=== PATIENT | male | born 1960 | race Caucasian/White ===

== ENCOUNTER → 2020-03-10 10:38 | Outpatient (BNVA) | payer SELFPAY | PROVIDERS: PCP Nurse Practitioner Family; Referring Provider Nurse Practitioner Family; Visit Provider Urology | DX: Z76.89 Persons encountering health services in other specified circumstances (principal) ==

== ENCOUNTER 2020-05-03 10:37 | Outpatient (REF) | payer BC, SELFPAY ==
[2020-05-03 14:23] LABS: Alanine Aminotransferase 13 U/L (0-40); Albumin Level 3.7 g/dL (3.5-5.0); Alkaline Phosphatase 79 U/L (39-117); Anion Gap 13 (12-20); Aspartate Amino Transferase 20 U/L (5-37); Bilirubin Total 0.8 mg/dL (0.0-1.0); Blood Urea Nitrogen 10 mg/dL (9-16); Calcium 7.9 mg/dL (8.4-10.2); Carbon Dioxide 28 mmol/L (22-29); Chloride 98 mmol/L (96-108); Cholesterol 162 mg/dL; Estimated Glomerular Filt Rate > 60; Glucose Fasting 114 mg/dL (60-99); HDL Cholesterol 42 mg/dL; LDL Cholesterol Calculated 94 mg/dl; Potassium 3.9 mmol/l (3.3-5.1); Sodium 135 mmol/L (135-145); Total Protein 6.6 g/dL (6.5-8.0); Triglycerides 131 mg/dL
[2020-05-03 15:12] LABS: TSH reflex Free T4 2.26 mIU/mL (0.32-4.0)
== END 2020-05-03 10:38 | disposition home or self-care (01) ==
LOC: HO.HMGCLDS 10:37
PROVIDERS: PCP Nurse Practitioner Family; Visit Provider Nurse Practitioner Family
DX: I10 Essential (primary) hypertension (principal)
CPT/HCPCS: 80053; 80061; 84443

== ENCOUNTER → 2020-05-30 10:02 | Outpatient (BNVA) | payer BC, SELFPAY | PROVIDERS: Visit Provider Physician Assistant | DX: Z76.89 Persons encountering health services in other specified circumstances (principal) ==

== ENCOUNTER → 2020-09-27 09:50 | Outpatient (BNVA) | payer BC, SELFPAY | PROVIDERS: Visit Provider Physician Assistant ==

== ENCOUNTER 2020-10-05 10:31 | Outpatient (REF) | payer BC, SELFPAY ==
--- NOTE | ~2020-10-05 | XR_ITS ---
EXAMINATION: XR CHEST CLINICAL INFORMATION: Shortness of breath COMPARISON: Chest radiographs 07/15/2019, 03/05/2019 TECHNIQUE: PA and lateral views of the chest are obtained. FINDINGS: The lungs are clear. The vascularity is normal. There is no pneumothorax, airspace consolidation, vascular congestion, or effusion. The heart is within normal size. There is bipolar pacemaker with atrial and ventricular leads. The costophrenic sulci are clear. The hilar and mediastinal contours are normal. No acute bony abnormality. XR/XR chest 2V IMPRESSION: Unremarkable examination.
== END 2020-10-05 10:32 | disposition home or self-care (01) ==
LOC: HO.HMGCX 10:31
PROVIDERS: PCP Nurse Practitioner Family; Visit Provider Nurse Practitioner Family
DX: R06.02 Shortness of breath (principal)
CPT/HCPCS: 71046

== ENCOUNTER → 2020-10-11 14:46 | Outpatient (BNVA) | payer BC, SELFPAY | PROVIDERS: PCP Nurse Practitioner Family; Visit Provider Internal Medicine ==

== ENCOUNTER 2020-10-31 14:55 | Outpatient (REF) | payer BC, SELFPAY ==
--- NOTE | 2020-10-31 17:48 | PFT_ITS ---
Forced vital capacity moderately reduced. FEV1 and [id number] are markedly reduced. MVV moderately reduced. Post bronchodilator therapy, there is a slight improvement in FEV1 and [id number]. Total lung capacity is slightly decreased. Residual volume normal. Diffusion capacity normal. CONCLUSION: [id number] degree of obstructive airway disorder. There is minimal improvement after bronchodilator therapy. Clinical correlation is recommended. MD SUKI Mes[place]/DUC / [id number]
== END 2020-10-31 14:56 | disposition home or self-care (01) ==
LOC: HO.RESP 14:55
PROVIDERS: PCP Nurse Practitioner Family; Visit Provider Internal Medicine
DX: R06.02 Shortness of breath (principal); E66.9 Obesity, unspecified
CPT/HCPCS: 94060; 94727; 94729

== ENCOUNTER → 2020-11-06 15:01 | Outpatient (BNVA) | payer BC, SELFPAY | PROVIDERS: PCP Nurse Practitioner Family; Visit Provider Internal Medicine ==

== ENCOUNTER → 2020-12-26 14:53 | Outpatient (BNVA) | payer BC, SELFPAY | PROVIDERS: PCP Nurse Practitioner Family; Visit Provider Internal Medicine ==

== ENCOUNTER 2021-01-26 19:50 | Inpatient (IN) | payer BC, SELFPAY ==
[2021-01-26] VITALS (7 sets, daily range): BP systolic 69–102; BP diastolic 36–51; PULSE 57–66; RESP 18–20; TEMP 36.4; O2SAT 94–100; BMI 43.7
--- NOTE | ~2021-01-26 | XR_ITS ---
EXAMINATION: XR CHEST CLINICAL INFORMATION: Rule out pneumonia COMPARISON: None TECHNIQUE: Frontal view of the chest was obtained. FINDINGS: Lungs are well expanded and there are no focal opacities identified. No pleural effusion or pneumothorax. The cardiomediastinal contours are unchanged from priors. Structures of the chest wall are intact. Left-sided pacemaker generator again noted which is contiguous with its associated leads and wires overlying the right ventricle and atrium. XR/XR chest 1V IMPRESSION: Stable chest.
--- NOTE | ~2021-01-26 | CT_ITS ---
EXAMINATION: CT ABDOMEN AND PELVIS WITHOUT CONTRAST CLINICAL INFORMATION: Belly pain. COMPARISON: CT scan abdomen pelvis 03/02/2019 TECHNIQUE: Multidetector volumetric imaging was performed from the superior aspect of the liver through the pubic symphysis. Sagittal and coronal reformatted images were obtained on the technologist's workstation. This CT examination was performed using dose optimization techniques as appropriate, variously including the following: *Automated exposure control *Adjustment of mA and/or kV according to patient size (this includes techniques or standardized protocols for targeted exams where dose is matched to indication/reason for exam; i.e. extremities or head) *Use of iterative reconstruction technique DLP: 3373 mGy-cm FINDINGS: LUNG BASES: Lung bases are normally aerated. Pacemaker leads in the right atrium and right ventricle heart. The heart size is normal. No pericardial effusion. LIVER, GALLBLADDER, AND BILIARY TREE: The liver is normal in size, shape, and attenuation. No focal hepatic lesion or biliary ductal dilatation is present. The gallbladder is unremarkable with no evidence of radiopaque gallstones, gallbladder wall thickening, or obvious pericholecystic inflammatory changes. PANCREAS: No acute change of the pancreas. No inflammation. No pancreatic mass or pancreatic duct dilatation. There is no inflammation or fluid around the pancreas. SPLEEN: Unremarkable. ADRENAL GLANDS: Unremarkable. KIDNEYS AND URETERS: The kidneys are normal in size, shape, and attenuation. No hydronephrosis, hydroureter, or calculi seen. No perinephric stranding. Simple cyst mid anterior pole cortex right kidney measuring 3.5 cm, density measurement of 8 Hounsfield units. No follow-up imaging is recommended for simple renal cyst.. BLADDER: Campbell catheter within the bladder. Bladder is empty. GASTROINTESTINAL TRACT: Mild dilatation of small bowel loops throughout the mid abdomen with scattered air-fluid levels. No transition point to indicate an obstructive point.. No dilatation of large bowel. Air and fluid seen throughout large and small bowel. No bowel wall thickening or edema. No fluid or edema of the mesentery. No free air. The appendix is normal. ABDOMINAL WALL: Small fat-containing left inguinal hernia. LYMPH NODES: There are shotty subcentimeter lymph nodes in the mesentery but there is no bulky lymphadenopathy of the abdomen or pelvis. VASCULAR: Atherosclerotic vascular calcifications of aorta and iliac arteries. There is no aneurysm. PELVIC VISCERA: Unremarkable. OSSEOUS STRUCTURES: Status post left hip replacement. Multilevel degenerative spondylosis spine. No acute osseous abnormality. CT/CT abdomen pelvis wo con IMPRESSION: Mild dilatation of small bowel loops throughout the mid abdomen with scattered air-fluid levels. No bowel wall thickening. There is no transition point. Possible early ileus. No inflammation or free air in the abdomen or pelvis. The pancreas is normal.
[2021-01-26 21:08] LABS: Glucose, Whole Blood 127 mg/dL (60-115)
--- NOTE | 2021-01-26 21:08 | ECG_ITS ---
Test Reason : HYPOTENSION Blood Pressure : / mmHG Vent. Rate : 063 BPM Atrial Rate : 063 BPM P-R Int : 258 ms QRS Dur : 200 ms QT Int : 558 ms P-R-T Axes : -17 266 028 degrees QTc Int : 571 ms Atrial-paced rhythm with prolonged AV conduction Right bundle branch block Abnormal ECG When compared with ECG of 14-APR-2019 17:14, Electronic atrial pacemaker has replaced Sinus rhythm Questionable change in QRS duration Referred By: Aggie Negro Electronically Signed By:NYLA PEMBERTON
[2021-01-26] MEDS: 0.9 % Sodium Chloride 1,000 ML 999 ML IVCONT ×4 (21:10→21:55)
--- NOTE | 2021-01-26 21:12 | ED_ITS ---
HPI - Nausea/Vomiting/Diarrhea General Chief complaint: Nausea/Vomiting/Diarrhea Stated complaint: ?Dehydration Time Seen by Provider: 01/26/21 21:07 Source: patient Mode of arrival: wheelchair Limitations: no limitations History of Present Illness HPI Narrative: pt comes to ED c/o of diarrhea for 1 week and weakness for several days. States that for the last couple of days, he is so weak that he can barely stand up, patient also feeling lightheaded. Patient denies chest pain, no shortness of breath, no other illness other than the diarrhea. Patient denies abdominal pain, no blood in the stool, no vomiting. Patient states that he has been trying to drink fluid intake. Patient states that he has had low blood pressure in the past, states that his blood pressure medications caused hypotension. Related Data Home Medications Medication Instructions Recorded Confirmed albuterol sulfate 90 mcg/actuation 2 puff INHALATION Q4-6H PRN 01/26/21 01/26/21 aerosol inhaler amlodipine 10 mg tablet 1 tab PO DAILY 01/26/21 01/26/21 aspirin 81 mg chewable tablet 1 tab PO DAILY 01/26/21 01/26/21 carvedilol 6.25 mg tablet 1 tab PO BID 01/26/21 01/26/21 docusate sodium 100 mg capsule 2 cap PO BEDTIME 01/26/21 01/26/21 fluticasone 250 mcg-salmeterol 50 1 puff INHALATION BID 01/26/21 01/26/21 mcg/dose blistr powdr for inhalation (Advair Diskus) folic acid 1 mg tablet 1 tab PO DAILY 01/26/21 01/26/21 furosemide 20 mg tablet 1 tab PO DAILY 01/26/21 01/26/21 losartan 50 mg tablet 1 tab PO DAILY 01/26/21 01/26/21 polyethylene glycol 3350 17 17 g PO DAILY 01/26/21 01/26/21 gram/dose oral powder (Gavilax) psyllium husk 0.52 gram capsule 1 tab PO BID 01/26/21 01/26/21 (Fiber Laxative (psyllium husk)) Allergies Allergy/AdvReac Type Severity Reaction Status Date / Time pravastatin [PRAVASTATIN] Allergy Intermediate RASH Verified 01/26/21 20:51 clonidine Allergy Unknown facial rash Verified 01/26/21 20:51 lisinopril Allergy Unknown achy, back Verified 01/26/21 20:51 pain, achy losartan Allergy Unknown achy Verified 01/26/21 20:51 amlodipine AdvReac Unknown leg edema, Verified 01/26/21 20:51 renal problems furosemide [Lasix] AdvReac Unknown renal Verified 01/26/21 20:51 insufficiency labetalol AdvReac Unknown achy Verified 01/26/21 20:51 Seasonal Allergy Unknown unknown Uncoded 12/14/20 16:19 Review of Systems Review of Systems: Constitutional : No Weight loss, No Fever, No Chills, No Night Sweats, No Fatigue, No Malaise ENT/Mouth : No Hearing loss, No Ear Pain, No Nasal Congestion, No Sinus Pain, No Hoarseness, No sore throat, No Rhinorrhea, No Swallowing Difficulty Eyes: No Eye Pain, No Swelling, No Redness, No Foreign Body, No Discharge, No Vision Changes Cardiovascular : No Chest Pain, No SOB, No Dyspnea on Exertion, No Orthopnea, No Edema, No Palpitations, complaining of low blood pressure, dizziness Respiratory : No Cough, No Sputum, No Wheezing, No Smoke Exposure, No Dyspnea Gastrointestinal : No Nausea, No Vomiting, planning of perfuse Diarrhea, No Constipation, No abdominal Pain, No Hematochezia, No Melena Genitourinary : no irregular bleeding, No Dysuria, No Urinary Frequency, No Hematuria, No Urinary Incontinence, No Urgency, No Flank Pain, No Urinary Flow Changes, No Hesitancy Musculoskeletal : No joint pain, No Myalgias, No Joint Swelling Skin : No Skin Lesions, No rash Neuro : No Weakness, No Numbness, No Paresthesias, No Loss of Consciousness, No Dizziness, No Headache Psych : No Anxiety/Panic, No Depression, No SI/HI/AH/VH, No Social Issues, Heme/Lymph: No Bruising, No Bleeding,No Lymphadenopathy Endocrine : No Polyuria, No Polydipsia, No Temperature Intolerance PMFSH Past Medical History Medical History Aortic root dilatation Atrial flutter Constipation COPD (chronic obstructive pulmonary disease) Dorsalgia DVT (deep venous thrombosis) Encounter for screening colonoscopy HTN (hypertension) Obesity (BMI 35.0-39.9 without comorbidity) RACHELE (obstructive sleep apnea) PVD (peripheral vascular disease) Sleep apnea Spinal stenosis, lumbar SSS (sick sinus syndrome) Surgical History History of hip replacement History of inguinal hernia repair Family History Family History (Reviewed 12/14/20 @ 16:20 by Catalino Manuel [facility]) Father Heart problem Pacemaker Colon cancer Mother No problems noted. Maternal Grandmother Cancer Maternal Grandfather Arthritis Brother No problems noted. Daughter No problems noted. Daughter No problems noted. Social History Social History (Reviewed 12/14/20 @ 16:20 by Catalino Manuel [facility]) Household Members: Spouse Household Members Other:: cats Alcohol intake: current Alcohol intake frequency: a few times a week Alcohol type: beer, wine and hard liquor Patient Tobacco Use Status: Former Tobacco user Smoked in Last 30 Days: No Use of substances other than those prescribed or required for medical reasons: No Advance Directives: No Advance Directives Information Provided: Yes Current occupational status: disabled Physical Exam Vital Signs: Vital Signs: Last Vital Signs Temp 97.3 F 01/27/21 07:00 Pulse 78 01/27/21 06:47 Resp 18 01/27/21 06:47 BP 87/57 L 01/27/21 06:47 Pulse Ox 100 01/27/21 06:47 Body Mass Index 43.7 Const: Other: Appearance: Alert. Oriented X3. No acute distress. Weak, unable to stand up by himself from the wheelchair Eyes: Pupils equal, round and reactive to light. ENT: Pharynx normal. Neck: Normal inspection. Neck supple. No lymph nodes noted. No crepitus CVS: Normal heart rate and rhythm. Pulses normal. Normal S1 and S2 Respiratory: No respiratory distress. Breath sounds normal. No Wheezing. No rales Abdomen: Soft and nontender. No rigidity. No distention. Skin: Skin warm and dry. Mildly Mottled Extremities: No lower extremity edema. No lower extremity edema. No Lacerations. No Rash Neuro: Oriented X 3. No motor deficit. No sensory deficit. Moving all extermities. No slurred speech. Course Course Course Narrative: Patient's hypotension likely secondary to severe dehydration. Campbell catheter was inserted, no urine output present. Patient is being empirically treated for colitis with ceftriaxone and metronidazole. Patient to receive 4 L of normal saline Patient's potassium 2.1, patient is able to tolerate p.o., being repleted orally. Troponin 40.1, likely secondary to demand ischemia due to low blood pressure. Patient has no chest pain, no acute EKG abnormalities Unable to get a full set of orthostatic vitals, patient is too weak to stand up. After 4 L of normal saline, patient states that he feels much better, still having diarrhea MDM - Nausea/Vomiting/Diarrhea Lab Data Result diagrams: 01/27/21 03:11 01/27/21 03:11 Labs: Lab Results 01/26/21 01/26/21 01/26/21 Range/Units 21:05 21:17 21:17 WBC 6.9 (4.8-10.8) X10*3/uL RBC 4.36 L (4.60-5.80) X10*6/uL Hgb 13.7 L (14.0-18.0) g/dl Hct 37.3 L (42-52) % MCV 85.6 (80-98) fL MCH 31.4 (27.0-33.0) pg MCHC 36.7 H (31.0-36.0) g/dl RDW 13.8 (11.0-16.0) % Plt Count 129 L D (160-400) X10*3/uL MPV 9.4 (9.4-12.4) fL Immature Gran % (Auto) 1.7 H (0.0-0.4) % Neut % (Auto) 70.4 (45-73) % Lymph % (Auto) 14.2 L (20-40) % Bullock % (Auto) 12.3 H (2-11) % Eos % (Auto) 1.3 (0-4) % Baso % (Auto) 0.1 (0-2) % Lymph # (Auto) 1.0 L (1.2-4.9) X10*3/uL Bullock # (Auto) 0.9 (0.1-1.2) X10*3/uL Eos # (Auto) 0.1 (0.0-0.4) X10*3/uL Baso # (Auto) 0.0 (0.0-0.2) X10*3/uL Abs Immat Gran (auto) 0.12 H (0.00-0.03) X10*3/uL Absolute Neuts (auto) 4.9 (2.0-8.3) X10*3/uL Absolute Nucleated RBC 0.000 (0.0-0.012) X10*3/uL Nucleated RBC % (auto) 0.0 (0.0-0.2) /100WBC Smear Tech's Comments VERIFIED PT (9.9-13.0) SEC INR (0.9-1.1) VBG pH (7.32-7.43) VBG pCO2 mmHg VBG pO2 mmHg VBG HCO3 (22-26) mmol/L VBG O2 Saturation % VBG Base Excess mmol/L Sodium 128 L (135-145) mmol/L Potassium 2.1 L* D (3.3-5.1) mmol/L Chloride 89 L (96-108) mmol/L Carbon Dioxide 17 L (22-29) mmol/L Anion Gap 24 H (12-20) BUN 71 H D (9-16) mg/dL Creatinine 6.95 H* (0.5-1.4) mg/dL Estim Creat Clear Calc 17.8 Estimated GFR 8 POC Glucose 127 H (60-115) mg/dL Random Glucose 123 H (60-115) mg/dL Lactic Acid (0.5-2.0) mmol/L Calcium 7.3 L D (8.4-10.2) mg/dL Phosphorus (2.7-4.5) mg/dL Magnesium (1.6-2.6) mg/dL Total Bilirubin 0.9 (0.0-1.0) mg/dL Direct Bilirubin 0.4 (0.0-0.5) mg/dL AST 48 H D (5-37) U/L ALT 27 (0-40) U/L Alkaline Phosphatase 59 D (39-117) U/L Troponin I High Sens (<3.5-35.0) ng/L B-Natriuretic Peptide (<100) pg/mL Total Protein 6.5 (6.5-8.0) g/dL Albumin 3.5 (3.5-5.0) g/dL Lipase 389 H (8-78) U/L Urine Color Urine Appearance Urine pH (5.0-8.0) Ur Specific [place] (1.005-1.025) Urine Protein (NEG-TRACE) MG/DL Urine Glucose (UA) (NEG) MG/DL Urine Ketones (NEG) MG/DL Urine Blood (NEG) Urine Nitrite (NEG) Ur Leukocyte Esterase (NEG) Urine RBC (0) /HPF Urine WBC (0-4) /HPF Ur Squamous Epith Cells /LPF Amorphous Sediment /LPF Urine Bacteria /LPF Hyaline Casts /LPF Urine Mucus /LPF C. difficile Tox B Gene (Negative) COVID-19 (JUDD) (Negative) COVID-19 Clin Com 01/26/21 01/26/21 01/26/21 Range/Units 21:17 21:17 21:17 WBC (4.8-10.8) X10*3/uL RBC (4.60-5.80) X10*6/uL Hgb (14.0-18.0) g/dl Hct (42-52) % MCV (80-98) fL MCH (27.0-33.0) pg MCHC (31.0-36.0) g/dl RDW (11.0-16.0) % Plt Count (160-400) X10*3/uL MPV (9.4-12.4) fL Immature Gran % (Auto) (0.0-0.4) % Neut % (Auto) (45-73) % Lymph % (Auto) (20-40) % Bullock % (Auto) (2-11) % Eos % (Auto) (0-4) % Baso % (Auto) (0-2) % Lymph # (Auto) (1.2-4.9) X10*3/uL Bullock # (Auto) (0.1-1.2) X10*3/uL Eos # (Auto) (0.0-0.4) X10*3/uL Baso # (Auto) (0.0-0.2) X10*3/uL Abs Immat Gran (auto) (0.00-0.03) X10*3/uL Absolute Neuts (auto) (2.0-8.3) X10*3/uL Absolute Nucleated RBC (0.0-0.012) X10*3/uL Nucleated RBC % (auto) (0.0-0.2) /100WBC Smear Tech's Comments PT 11.5 (9.9-13.0) SEC INR 1.0 (0.9-1.1) VBG pH (7.32-7.43) VBG pCO2 mmHg VBG pO2 mmHg VBG HCO3 (22-26) mmol/L VBG O2 Saturation % VBG Base Excess mmol/L Sodium (135-145) mmol/L Potassium (3.3-5.1) mmol/L Chloride (96-108) mmol/L Carbon Dioxide (22-29) mmol/L Anion Gap (12-20) BUN (9-16) mg/dL Creatinine (0.5-1.4) mg/dL Estim Creat Clear Calc Estimated GFR POC Glucose (60-115) mg/dL Random Glucose (60-115) mg/dL Lactic Acid 1.8 (0.5-2.0) mmol/L Calcium (8.4-10.2) mg/dL Phosphorus (2.7-4.5) mg/dL Magnesium (1.6-2.6) mg/dL Total Bilirubin (0.0-1.0) mg/dL Direct Bilirubin (0.0-0.5) mg/dL AST (5-37) U/L ALT (0-40) U/L Alkaline Phosphatase (39-117) U/L Troponin I High Sens 40.1 H* (<3.5-35.0) ng/L B-Natriuretic Peptide < 10 (<100) pg/mL Total Protein (6.5-8.0) g/dL Albumin (3.5-5.0) g/dL Lipase (8-78) U/L Urine Color Urine Appearance Urine pH (5.0-8.0) Ur Specific [place] (1.005-1.025) Urine Protein (NEG-TRACE) MG/DL Urine Glucose (UA) (NEG) MG/DL Urine Ketones (NEG) MG/DL Urine Blood (NEG) Urine Nitrite (NEG) Ur Leukocyte Esterase (NEG) Urine RBC (0) /HPF Urine WBC (0-4) /HPF Ur Squamous Epith Cells /LPF Amorphous Sediment /LPF Urine Bacteria /LPF Hyaline Casts /LPF Urine Mucus /LPF C. difficile Tox B Gene (Negative) COVID-19 (JUDD) (Negative) COVID-19 Clin Com 01/26/21 01/26/21 01/27/21 Range/Units 21:17 21:17 00:12 WBC (4.8-10.8) X10*3/uL RBC (4.60-5.80) X10*6/uL Hgb (14.0-18.0) g/dl Hct (42-52) % MCV (80-98) fL MCH (27.0-33.0) pg MCHC (31.0-36.0) g/dl RDW (11.0-16.0) % Plt Count (160-400) X10*3/uL MPV (9.4-12.4) fL Immature Gran % (Auto) (0.0-0.4) % Neut % (Auto) (45-73) % Lymph % (Auto) (20-40) % Bullock % (Auto) (2-11) % Eos % (Auto) (0-4) % Baso % (Auto) (0-2) % Lymph # (Auto) (1.2-4.9) X10*3/uL [place] # (Auto) (0.1-1.2) X10*3/uL Eos # (Auto) (0.0-0.4) X10*3/uL Baso # (Auto) (0.0-0.2) X10*3/uL Abs Immat Gran (auto) (0.00-0.03) X10*3/uL Absolute Neuts (auto) (2.0-8.3) X10*3/uL Absolute Nucleated RBC (0.0-0.012) X10*3/uL Nucleated RBC % (auto) (0.0-0.2) /100WBC Smear Tech's Comments PT (9.9-13.0) SEC INR (0.9-1.1) VBG pH (7.32-7.43) VBG pCO2 mmHg VBG pO2 mmHg VBG HCO3 (22-26) mmol/L VBG O2 Saturation % VBG Base Excess mmol/L Sodium (135-145) mmol/L Potassium (3.3-5.1) mmol/L Chloride (96-108) mmol/L Carbon Dioxide (22-29) mmol/L Anion Gap (12-20) BUN (9-16) mg/dL Creatinine (0.5-1.4) mg/dL Estim Creat Clear Calc Estimated GFR POC Glucose (60-115) mg/dL Random Glucose (60-115) mg/dL Lactic Acid (0.5-2.0) mmol/L Calcium (8.4-10.2) mg/dL Phosphorus (2.7-4.5) mg/dL Magnesium (1.6-2.6) mg/dL Total Bilirubin (0.0-1.0) mg/dL Direct Bilirubin (0.0-0.5) mg/dL AST (5-37) U/L ALT (0-40) U/L Alkaline Phosphatase (39-117) U/L Troponin I High Sens (<3.5-35.0) ng/L B-Natriuretic Peptide (<100) pg/mL Total Protein (6.5-8.0) g/dL Albumin (3.5-5.0) g/dL Lipase Cancelled (8-78) U/L Urine Color YELLOW Urine Appearance HAZY Urine pH 5.5 (5.0-8.0) Ur Specific [place] 1.025 (1.005-1.025) Urine Protein 2+ H (NEG-TRACE) MG/DL Urine Glucose (UA) NEG (NEG) MG/DL Urine Ketones NEG (NEG) MG/DL Urine Blood 3+ H (NEG) Urine Nitrite NEG (NEG) Ur Leukocyte Esterase NEG (NEG) Urine RBC 5-9 H (0) /HPF Urine WBC 1-4 (0-4) /HPF Ur Squamous Epith Cells 3+ /LPF Amorphous Sediment 2+ /LPF Urine Bacteria 1+ /LPF Hyaline Casts 5-9 /LPF Urine Mucus 3+ /LPF C. difficile Tox B Gene (Negative) COVID-19 (JUDD) Negative (Negative) COVID-19 Clin Com See Note 01/27/21 01/27/21 01/27/21 Range/Units 00:12 03:11 03:11 WBC 5.7 (4.8-10.8) X10*3/uL RBC 3.82 L (4.60-5.80) X10*6/uL Hgb 12.3 L (14.0-18.0) g/dl Hct 33.5 L (42-52) % MCV 87.7 (80-98) fL MCH 32.2 (27.0-33.0) pg MCHC 36.7 H (31.0-36.0) g/dl RDW 14.0 (11.0-16.0) % Plt Count 119 L (160-400) X10*3/uL MPV 9.2 L (9.4-12.4) fL Immature Gran % (Auto) 2.4 H (0.0-0.4) % Neut % (Auto) 69.3 (45-73) % Lymph % (Auto) 15.2 L (20-40) % Bullock % (Auto) 12.2 H (2-11) % Eos % (Auto) 0.7 (0-4) % Baso % (Auto) 0.2 (0-2) % Lymph # (Auto) 0.9 L (1.2-4.9) X10*3/uL Bullock # (Auto) 0.7 (0.1-1.2) X10*3/uL Eos # (Auto) 0.0 (0.0-0.4) X10*3/uL Baso # (Auto) 0.0 (0.0-0.2) X10*3/uL Abs Immat Gran (auto) 0.14 H (0.00-0.03) X10*3/uL Absolute Neuts (auto) 4.0 (2.0-8.3) X10*3/uL Absolute Nucleated RBC 0.000 (0.0-0.012) X10*3/uL Nucleated RBC % (auto) 0.0 (0.0-0.2) /100WBC Smear Tech's Comments PT (9.9-13.0) SEC INR (0.9-1.1) VBG pH (7.32-7.43) VBG pCO2 mmHg VBG pO2 mmHg VBG HCO3 (22-26) mmol/L VBG O2 Saturation % VBG Base Excess mmol/L Sodium 133 L (135-145) mmol/L Potassium 2.5 L* (3.3-5.1) mmol/L Chloride 97 (96-108) mmol/L Carbon Dioxide 19 L (22-29) mmol/L Anion Gap 20 (12-20) BUN 70 H (9-16) mg/dL Creatinine 5.68 H* (0.5-1.4) mg/dL Estim Creat Clear Calc 21.7 Estimated GFR 10 POC Glucose (60-115) mg/dL Random Glucose 108 (60-115) mg/dL Lactic Acid (0.5-2.0) mmol/L Calcium 6.8 L D (8.4-10.2) mg/dL Phosphorus 4.9 H (2.7-4.5) mg/dL Magnesium 2.1 (1.6-2.6) mg/dL Total Bilirubin 0.7 (0.0-1.0) mg/dL Direct Bilirubin (0.0-0.5) mg/dL AST 40 H (5-37) U/L ALT 23 (0-40) U/L Alkaline Phosphatase 52 (39-117) U/L Troponin I High Sens (<3.5-35.0) ng/L B-Natriuretic Peptide (<100) pg/mL Total Protein 5.4 L (6.5-8.0) g/dL Albumin 2.9 L (3.5-5.0) g/dL Lipase 457 H (8-78) U/L Urine Color Urine Appearance Urine pH (5.0-8.0) Ur Specific [place] (1.005-1.025) Urine Protein (NEG-TRACE) MG/DL Urine Glucose (UA) (NEG) MG/DL Urine Ketones (NEG) MG/DL Urine Blood (NEG) Urine Nitrite (NEG) Ur Leukocyte Esterase (NEG) Urine RBC (0) /HPF Urine WBC (0-4) /HPF Ur Squamous Epith Cells /LPF Amorphous Sediment /LPF Urine Bacteria /LPF Hyaline Casts /LPF Urine Mucus /LPF C. difficile Tox B Gene NEGATIVE (Negative) COVID-19 (JUDD) (Negative) COVID-19 Clin Com 01/27/21 01/27/21 01/27/21 Range/Units 03:11 04:04 04:07 WBC (4.8-10.8) X10*3/uL RBC (4.60-5.80) X10*6/uL Hgb (14.0-18.0) g/dl Hct (42-52) % MCV (80-98) fL MCH (27.0-33.0) pg MCHC (31.0-36.0) g/dl RDW (11.0-16.0) % Plt Count (160-400) X10*3/uL MPV (9.4-12.4) fL Immature Gran % (Auto) (0.0-0.4) % Neut % (Auto) (45-73) % Lymph % (Auto) (20-40) % [place] % (Auto) (2-11) % Eos % (Auto) (0-4) % Baso % (Auto) (0-2) % Lymph # (Auto) (1.2-4.9) X10*3/uL [place] # (Auto) (0.1-1.2) X10*3/uL Eos # (Auto) (0.0-0.4) X10*3/uL Baso # (Auto) (0.0-0.2) X10*3/uL Abs Immat Gran (auto) (0.00-0.03) X10*3/uL Absolute Neuts (auto) (2.0-8.3) X10*3/uL Absolute Nucleated RBC (0.0-0.012) X10*3/uL Nucleated RBC % (auto) (0.0-0.2) /100WBC Smear Tech's Comments PT (9.9-13.0) SEC INR (0.9-1.1) VBG pH 7.29 L (7.32-7.43) VBG pCO2 28 mmHg VBG pO2 39 mmHg VBG HCO3 14 L (22-26) mmol/L VBG O2 Saturation 56.0 % VBG Base Excess -11.0 mmol/L Sodium Cancelled (135-145) mmol/L Potassium Cancelled (3.3-5.1) mmol/L Chloride Cancelled (96-108) mmol/L Carbon Dioxide Cancelled (22-29) mmol/L Anion Gap Cancelled (12-20) BUN Cancelled (9-16) mg/dL Creatinine Cancelled (0.5-1.4) mg/dL Estim Creat Clear Calc Cancelled Estimated GFR Cancelled POC Glucose (60-115) mg/dL Random Glucose Cancelled (60-115) mg/dL Lactic Acid (0.5-2.0) mmol/L Calcium Cancelled (8.4-10.2) mg/dL Phosphorus Cancelled (2.7-4.5) mg/dL Magnesium (1.6-2.6) mg/dL Total Bilirubin Cancelled (0.0-1.0) mg/dL Direct Bilirubin (0.0-0.5) mg/dL AST Cancelled (5-37) U/L ALT Cancelled (0-40) U/L Alkaline Phosphatase Cancelled (39-117) U/L Troponin I High Sens 28.6 (<3.5-35.0) ng/L B-Natriuretic Peptide (<100) pg/mL Total Protein Cancelled (6.5-8.0) g/dL Albumin Cancelled (3.5-5.0) g/dL Lipase (8-78) U/L Urine Color Urine Appearance Urine pH (5.0-8.0) Ur Specific [place] (1.005-1.025) Urine Protein (NEG-TRACE) MG/DL Urine Glucose (UA) (NEG) MG/DL Urine Ketones (NEG) MG/DL Urine Blood (NEG) Urine Nitrite (NEG) Ur Leukocyte Esterase (NEG) Urine RBC (0) /HPF Urine WBC (0-4) /HPF Ur Squamous Epith Cells /LPF Amorphous Sediment /LPF Urine Bacteria /LPF Hyaline Casts /LPF Urine Mucus /LPF C. difficile Tox B Gene (Negative) COVID-19 (JUDD) (Negative) COVID-19 Clin Com Imaging Data Chest x-ray: Radiologist's impression: Lungs are well expanded and there are no focal opacities identified. No pleural effusion or pneumothorax. The cardiomediastinal contours are unchanged from priors. Structures of the chest wall are intact. Left-sided pacemaker generator again noted which is contiguous with its associated leads and wires overlying the right ventricle and atrium. XR/XR chest 1V IMPRESSION: Stable chest. CT of the abdomen and pelvis: Radiologist's impression: FINDINGS: LUNG BASES: Lung bases are normally aerated. Pacemaker leads in the right atrium and right ventricle heart. The heart size is normal. No pericardial effusion.? LIVER, GALLBLADDER, AND BILIARY TREE: The liver is normal in size, shape, and attenuation. No focal hepatic lesion or biliary ductal dilatation is present. The gallbladder is unremarkable with no evidence of radiopaque gallstones, gallbladder wall thickening, or obvious pericholecystic inflammatory changes.? PANCREAS: No acute change of the pancreas. No inflammation. No pancreatic mass or pancreatic duct dilatation. There is no inflammation or fluid around the pancreas.? SPLEEN: Unremarkable.? ADRENAL GLANDS: Unremarkable.? KIDNEYS AND URETERS: The kidneys are normal in size, shape, and attenuation. No hydronephrosis, hydroureter, or calculi seen. No perinephric stranding. Simple cyst mid anterior pole cortex right kidney measuring 3.5 cm, density measurement of 8 Hounsfield units. No follow-up imaging is recommended for simple renal cyst.. BLADDER: Campbell catheter within the bladder. Bladder is empty.? GASTROINTESTINAL TRACT: Mild dilatation of small bowel loops throughout the mid abdomen with scattered air-fluid levels. No transition point to indicate an obstructive point.. No dilatation of large bowel. Air and fluid seen throughout large and small bowel. No bowel wall thickening or edema. No fluid or edema of the mesentery. No free air. The appendix is normal. ABDOMINAL WALL: Small fat-containing left inguinal hernia.? LYMPH NODES: There are shotty subcentimeter lymph nodes in the mesentery but there is no bulky lymphadenopathy of the abdomen or pelvis. VASCULAR: Atherosclerotic vascular calcifications of aorta and iliac arteries. There is no aneurysm. PELVIC VISCERA: Unremarkable.? OSSEOUS STRUCTURES: Status post left hip replacement. Multilevel degenerative spondylosis spine. No acute osseous abnormality.? CT/CT abdomen pelvis wo con IMPRESSION: Mild dilatation of small bowel loops throughout the mid abdomen with scattered air-fluid levels. No bowel wall thickening. There is no transition point. Possible early ileus. No inflammation or free air in the abdomen or pelvis. The pancreas is normal. ECG Data Attestation: I personally reviewed and interpreted this ECG as follows: (Atrial paced rhythm, prolonged AV conduction, heart rate 63, nonspecific ST changes V1 through V6, no reciprocal changes, QTC 591) Critical Care Time Critical Care Time Critical Care Time: Yes Total Critical Care Time: 120 Attestation: 120 minutes were spent with the patient in direct care, stabilizing the patient and with consult Discharge Plan Discharge Clinical Impression: Diarrhea, Acute hypotension, Acute kidney failure with tubular necrosis, Acute hypokalemia Prescriptions: No Action losartan 50 mg tablet 1 tab PO DAILY RF: 0 fluticasone propion-salmeterol [Advair Diskus] 250-50 mcg/dose blister with device 1 puff inhalation BID RF: 0 carvedilol 6.25 mg tablet 1 tab PO BID RF: 0 amlodipine 10 mg tablet 1 tab PO DAILY RF: 0 docusate sodium 100 mg capsule 2 cap PO BEDTIME RF: 0 aspirin 81 mg tablet,chewable 1 tab PO DAILY RF: 0 folic acid 1 mg tablet 1 tab PO DAILY RF: 0 furosemide 20 mg tablet 1 tab PO DAILY RF: 0 polyethylene glycol 3350 [Gavilax] 17 gram/dose powder 17 g PO DAILY RF: 0 albuterol sulfate 90 mcg/actuation HFA aerosol inhaler 2 puff inhalation Q4-6H PRN (Reason: wheezing) RF: 0 psyllium husk [Fiber Laxative (psyllium husk)] 0.52 gram capsule 1 tab PO BID RF: 0
[2021-01-26 21:27] LABS: MANUAL DIFF FLAG SCAN; Mean Corpuscular Volume 85.6 fL (80-98); Mean Platelet Volume 9.4 fL (9.4-12.4); PLT CLUMP 1; Red Cell Distribution Width 13.8 % (11.0-16.0); SCAN SMEAR FLAG 1
[2021-01-26 21:29] LABS: Basophils Percent Auto 0.1 % (0-2); Eosinophils Absolute Auto 0.1 X10*3/uL (0.0-0.4); Eosinophils Percent Auto 1.3 % (0-4); Hematocrit 37.3 % (42-52); Hemoglobin 13.7 g/dl (14.0-18.0); Imm Gran Abs Auto 0.12 X10*3/uL (0.00-0.03); Imm Gran Pct Auto 1.7 % (0.0-0.4); Lymphocytes Percent Auto 14.2 % (20-40); Mean Corpuscular HGB Conc 36.7 g/dl (31.0-36.0); Mean Corpuscular Hemoglobin 31.4 pg (27.0-33.0); Monocytes Absolute Auto 0.9 X10*3/uL (0.1-1.2); Monocytes Percent Auto 12.3 % (2-11); Neutrophils Absolute Auto 4.9 X10*3/uL (2.0-8.3); Neutrophils Percent Auto 70.4 % (45-73); Red Blood Count 4.36 X10*6/uL (4.60-5.80); White Blood Count 6.9 X10*3/uL (4.8-10.8)
[2021-01-26 21:32] LABS: Prothrombin Time 11.5 SEC (9.9-13.0)
--- NOTE | 2021-01-26 21:34 | PC.NURSE ---
DUE TO HYPOTENTION, NEEDS IO MONITORING. PT IS UNABLE TO STAND WITHOUT ASSISTANCE.
[2021-01-26 21:36] LABS: Lactic Acid 1.8 mmol/L (0.5-2.0)
--- NOTE | 2021-01-26 21:44 | PC.NURSE ---
UMANA PLACED, NO URINE OUTPUT NOTED. SECONDARY TO DEHYDRATION. MD NOTIFIED AND GIVEN PERMISSION TO INFLATE BALLOON.
[2021-01-26 21:45] LABS: Platelet Count 129 X10*3/uL (160-400); SLIDE REVIEW VERIFIED
[2021-01-26] MEDS: cefTRIAXone sodium 1 GM in 0.9 % Sodium Chloride 50 ML IV (21:54)
[2021-01-26 22:00] LABS: B Type Natriuretic Peptide < 10 pg/mL (<100); Troponin-I High Sensitivity 40.1 ng/L (<3.5-35.0)
[2021-01-26] MEDS: metroNIDAZOLE/NS 500 MG/100 ML PIGGYBACK 100 MG IV (22:03)
[2021-01-26 22:04] LABS: Alanine Aminotransferase 27 U/L (0-40); Albumin Level 3.5 g/dL (3.5-5.0); Alkaline Phosphatase 59 U/L (39-117); Anion Gap 24 (12-20); Aspartate Amino Transferase 48 U/L (5-37); Bilirubin Direct 0.4 mg/dL (0.0-0.5); Bilirubin Total 0.9 mg/dL (0.0-1.0); Blood Urea Nitrogen 71 mg/dL (9-16); Calcium 7.3 mg/dL (8.4-10.2); Carbon Dioxide 17 mmol/L (22-29); Chloride 89 mmol/L (96-108); Creatinine Clr Calc Pharmacy 17.8; Estimated Glomerular Filt Rate 8; Glucose Random 123 mg/dL (60-115); Lipase 389 U/L (8-78); Potassium 2.1 mmol/L (3.3-5.1); Sodium 128 mmol/L (135-145); Total Protein 6.5 g/dL (6.5-8.0)
[2021-01-26] MEDS: Potassium Chloride Packet 20 MEQ PACKET 80 MEQ PO (22:05)
[2021-01-26 22:12] LABS: COVID-19 Test Negative (Negative); IDNOW Serial# 9DD0AD1C
[2021-01-27] VITALS (33 sets, daily range): BP systolic 72–121; BP diastolic 24–62; PULSE 60–98; RESP 15–24; TEMP 36.3–36.8; O2SAT 97–100; BMI 41.8
[2021-01-27 00:19] LABS: Appearance Urine HAZY; Color Urine YELLOW; Glucose Urine UA NEG (NEG); Leukocyte Esterase Urine NEG (NEG); Nitrite Urine NEG (NEG); PH 5.5 (5.0-8.0); Specific Gravity - Urine 1.025 (1.005-1.025); UACC Culture Trigger NO; Urine Blood 3+ (NEG); Urine Ketones NEG (NEG); Urine Protein 2+ MG/DL (NEG-TRACE)
[2021-01-27 00:29] LABS: Bacteria Urine 1+ /LPF; Mucus Urine 3+ /LPF; Squamous Epithelial Cell Urine 3+ /LPF
[2021-01-27 00:30] LABS: Amorphous Sediment Urine 2+ /LPF
[2021-01-27 01:08] LABS: CDiff Gene PCR NEGATIVE (Negative)
--- NOTE | 2021-01-27 02:23 | PC.NURSE ---
Due to patient insistence upon using bedside commode- hypotention and fall risk status re-educated. Multiple markers placed on chart, in comments in addition to falling star, red socks, red fall risk wrist. Pt offered bedpan for bowel movement needs.
--- NOTE | 2021-01-27 03:03 | PC.NURSE ---
plan for lr 1000ml/hr instead of normal saline bolus
[2021-01-27] MEDS: Lactated Ringers 1,000 ML 999 ML IV (03:14)
[2021-01-27 03:23] LABS: Basophils Percent Auto 0.2 % (0-2); Eosinophils Percent Auto 0.7 % (0-4); PLT CLUMP 1; SCAN SMEAR FLAG 1
[2021-01-27 03:25] LABS: Hematocrit 33.5 % (42-52); Hemoglobin 12.3 g/dl (14.0-18.0); Imm Gran Abs Auto 0.14 X10*3/uL (0.00-0.03); Imm Gran Pct Auto 2.4 % (0.0-0.4); Lymphocytes Absolute Auto 0.9 X10*3/uL (1.2-4.9); Lymphocytes Percent Auto 15.2 % (20-40); Mean Corpuscular HGB Conc 36.7 g/dl (31.0-36.0); Mean Corpuscular Hemoglobin 32.2 pg (27.0-33.0); Mean Corpuscular Volume 87.7 fL (80-98); Mean Platelet Volume 9.2 fL (9.4-12.4); Monocytes Absolute Auto 0.7 X10*3/uL (0.1-1.2); Monocytes Percent Auto 12.2 % (2-11); Neutrophils Percent Auto 69.3 % (45-73); Platelet Count 119 X10*3/uL (160-400); Red Blood Count 3.82 X10*6/uL (4.60-5.80); White Blood Count 5.7 X10*3/uL (4.8-10.8)
[2021-01-27 03:29] LABS: MANUAL DIFF FLAG NO
[2021-01-27 03:42] LABS: Troponin-I High Sensitivity 28.6 ng/L (<3.5-35.0)
--- NOTE | 2021-01-27 03:46 | PC.NURSE ---
per dilion from icu- provided chemistries get better, pt is suitble for floor. pt maintains gcs of 15 and mental status. pt remains alert and orientated.
[2021-01-27 03:53] LABS: Alanine Aminotransferase 23 U/L (0-40); Albumin Level 2.9 g/dL (3.5-5.0); Alkaline Phosphatase 52 U/L (39-117); Anion Gap 20 (12-20); Aspartate Amino Transferase 40 U/L (5-37); Bilirubin Total 0.7 mg/dL (0.0-1.0); Blood Urea Nitrogen 70 mg/dL (9-16); Calcium 6.8 mg/dL (8.4-10.2); Carbon Dioxide 19 mmol/L (22-29); Chloride 97 mmol/L (96-108); Creatinine Clr Calc Pharmacy 21.7; Estimated Glomerular Filt Rate 10; Glucose Random 108 mg/dL (60-115); Lipase 457 U/L (8-78); Magnesium 2.1 mg/dL (1.6-2.6); Potassium 2.5 mmol/L (3.3-5.1); Sodium 133 mmol/L (135-145); Total Protein 5.4 g/dL (6.5-8.0)
[2021-01-27 04:11] LABS: Venous Blood Gas Refer to POC result
[2021-01-27 04:13] LABS: VBG HCO3 14 mmol/L (22-26); VBG pCO2 28 mmHg; VBG pH 7.29 (7.32-7.43); VBG pO2 39 mmHg
--- NOTE | 2021-01-27 04:27 | PC.NURSE ---
MALA HOLT NOTIFIED OF BP, PLAN TO PLACE ORDERS FOR TOTAL OF 8L FOR FLUID RESUSCITATION. PLAN TO INFUSE ONE AT A TIME.
[2021-01-27] MEDS: Sodium Bicarbonate 8.4% 50 MEQ/50 ML VIAL IVPUSH (04:44)
[2021-01-27] MEDS: Lactated Ringers 1,000 ML 150 ML IVCONT ×3 (04:46→20:17)
--- NOTE | 2021-01-27 04:48 | PC.NURSE ---
awaiting for blood conset to be signed to adminster albumin.
--- NOTE | 2021-01-27 04:49 | PC.NURSE ---
pt remains in [facility] at this time.
--- NOTE | 2021-01-27 05:04 | PC.NURSE ---
PER DR. PAEZ, THIS [facility] OPERATOR IS TO NOTIFY ICU P.A DILION OF CURRENT BP- PER DILIAN GIVE FLUIDS . DR. PAEZ NOTIFIED OF RECOMMENDATION.
[2021-01-27] MEDS: Albumin Human 25 % 100 ML IV ×2 (05:12→06:39)
[2021-01-27 05:26] LABS: Phosphorus 4.9 mg/dL (2.7-4.5)
[2021-01-27] MEDS: Hydrocortisone Sod Succ/PF 100 MG VIAL IVPUSH (06:34)
[2021-01-27] MEDS: Heparin Sodium,Porcine 5,000 UNIT/ML VIAL 5000 UNIT SUBCUT ×3 (06:36→21:31)
[2021-01-27] MEDS: Potassium Chloride Packet 20 MEQ PACKET 40 MEQ PO ×2 (06:37→21:31)
--- NOTE | 2021-01-27 06:57 | PC.NURSE ---
mD GUY TO COME AND EVAL PT DUE TO BP
--- NOTE | 2021-01-27 07:17 | P.HPHOSP_ITS ---
History of Present Illness Date of Service: 01/27/21 Chief Complaint: diarrhea, weakness 60M presented with 6 days of water diarrhea. patient states that around 6 days ptp he started to have profuse mucusy/watery diarrhea, multiple times a day, denies fever, chills, sob, chest pain. no significant abdominal pain, no blood in stool, has been mostly staying home since the beginning of the COVID pandemic. denies sick contacts, recent questionable foods. has been feeling lightheaded, but still taking his blood pressure meds. in ED found to be hypotensive, had 15 BMs while in ED. severe HEIDI and hypokalemia. patient was evaluated by intesive care team, he was given 4 bolus's of normal saline and started on LR and given albumin. blood pressure has since improved. patient mentating well. therefore, was decided patient does not require ICU level of care at this time. Review of Systems Review of Systems: Constitutional: Denies fever, denies Chills Eyes: denies blurry vision ENT: denies sore throat CVS: denies chest pain Respiratory: Denies dyspnea GI: see hpi : denies dysuria MSK: denies neck pain Skin: denies rash Neuro: denies specific motor weakness Psych: denies suicidal ideation Endocrine: denies heat/cold intolerance Hematologic: denies easy bleeding Allergy: denies hives [facility] [place] Medical History Aortic root dilatation Atrial flutter Constipation COPD (chronic obstructive pulmonary disease) Dorsalgia DVT (deep venous thrombosis) Encounter for screening colonoscopy HTN (hypertension) Obesity (BMI 35.0-39.9 without comorbidity) RACHELE (obstructive sleep apnea) PVD (peripheral vascular disease) Sleep apnea Spinal stenosis, lumbar SSS (sick sinus syndrome) Family History Father Heart problem Pacemaker Colon cancer Mother No problems noted. Maternal Grandmother Cancer Maternal Grandfather Arthritis Brother No problems noted. Daughter No problems noted. Daughter No problems noted. Surgical History History of hip replacement History of inguinal hernia repair Social History Household Members: Spouse Household Members Other:: cats Alcohol intake: current Alcohol intake frequency: a few times a week Alcohol type: beer, wine and hard liquor Patient Tobacco Use Status: Former Tobacco user Smoked in Last 30 Days: No Use of substances other than those prescribed or required for medical reasons: No Advance Directives: No Advance Directives Information Provided: Yes Current occupational status: disabled Meds Allergies Allergy/AdvReac Type Severity Reaction Status Date / Time pravastatin [PRAVASTATIN] Allergy Intermediate RASH Verified 01/26/21 20:51 clonidine Allergy Unknown facial rash Verified 01/26/21 20:51 lisinopril Allergy Unknown achy, back Verified 01/26/21 20:51 pain, achy losartan Allergy Unknown achy Verified 01/26/21 20:51 amlodipine AdvReac Unknown leg edema, Verified 01/26/21 20:51 renal problems furosemide [Lasix] AdvReac Unknown renal Verified 01/26/21 20:51 insufficiency labetalol AdvReac Unknown achy Verified 01/26/21 20:51 Seasonal Allergy Unknown unknown Uncoded 12/14/20 16:19 Active Medications: Current Medications Generic Name Dose Route Start Last Admin Trade Name Freq PRN Reason Stop Dose Admin Acetaminophen 650 mg 01/27/21 07:10 Acetaminophen 325 Mg Tablet PO Q6H PRN Pain, Mild (Pain Scale 1-3) Fluticasone/Vilanterol 1 puff 01/27/21 09:00 Fluticasone/Vilanterol 100/25 Blst.W.Dev INHALE DAILY ELAINE Heparin Sodium (Porcine) 5,000 unit 01/27/21 06:00 01/27/21 06:36 Heparin Sodium,Porcine 5,000 Unit/Ml Vial SUBCUT 5,000 unit Q8H ELAINE Administration Lactated Ringer's 1,000 mls @ 150 mls/hr 01/27/21 04:30 01/27/21 04:46 Lr IVCONT 150 mls/hr .Q6H40M ELAINE Administration Ondansetron HCl 4 mg 01/27/21 03:12 Ondansetron Hcl 4 Mg/2 Ml Vial IVPUSH Q8H PRN nausea Oxycodone HCl 5 mg 01/27/21 07:10 Oxycodone Hcl Immed Release 5 Mg Tablet PO Q6H PRN Pain, Severe (Pain Scale 7-10) Pantoprazole Sodium 40 mg 01/27/21 09:00 Pantoprazole Sodium 40 Mg/10 Ml Vial IVPUSH DAILY [facility] Pharmacy Consult 1 each 01/26/21 21:45 Consult Rx Perform Med Rec MISCELLANE ONCE PRN Consult order Sodium Chloride 3 ml 01/27/21 08:00 0.9 % Sodium Chloride Flush 3 Ml Syringe IVFLUSH QSHIFT [facility] Home Medications Medication Instructions Recorded Confirmed Last Taken Type albuterol sulfate 90 mcg/actuation 2 puff INHALATION Q4-6H PRN 01/26/21 01/26/21 1 Day Ago History aerosol inhaler ~01/25/21 2 puff amlodipine 10 mg tablet 1 tab PO DAILY 01/26/21 01/26/21 1 Day Ago History ~01/25/21 1 tab aspirin 81 mg chewable tablet 1 tab PO DAILY 01/26/21 01/26/21 1 Day Ago History ~01/25/21 1 tab carvedilol 6.25 mg tablet 1 tab PO BID 01/26/21 01/26/21 1 Day Ago History ~01/25/21 1 tab docusate sodium 100 mg capsule 2 cap PO BEDTIME 01/26/21 01/26/21 1 Day Ago History ~01/25/21 2 cap fluticasone 250 mcg-salmeterol 50 1 puff INHALATION BID 01/26/21 01/26/21 1 Day Ago History mcg/dose blistr powdr for ~01/25/21 inhalation (Advair Diskus) 1 puff folic acid 1 mg tablet 1 tab PO DAILY 01/26/21 01/26/21 1 Day Ago History ~01/25/21 1 tab furosemide 20 mg tablet 1 tab PO DAILY 01/26/21 01/26/21 1 Day Ago History ~01/25/21 1 tab losartan 50 mg tablet 1 tab PO DAILY 01/26/21 01/26/21 1 Day Ago History ~01/25/21 1 tab polyethylene glycol 3350 17 17 g PO DAILY 01/26/21 01/26/21 1 Day Ago History gram/dose oral powder (Gavilax) ~01/25/21 17 g psyllium husk 0.52 gram capsule 1 tab PO BID 01/26/21 01/26/21 1 Day Ago History (Fiber Laxative (psyllium husk)) ~01/25/21 1 tab Physical Exam Vital Signs and Narrative: Vital Signs: Last Vital Signs Temp 97.3 F 01/27/21 07:00 Pulse 78 01/27/21 06:47 Resp 18 01/27/21 06:47 BP 87/57 L 01/27/21 06:47 Pulse Ox 100 01/27/21 06:47 Body Mass Index 43.7 General: no acute distress, ill appearing HEENT: atraumatic Neck: normal to visual inspection CVS: S1, S2, RRR Resp: CTA bilateral Chest: non tender GI: soft, non tender, non distended : no CVA tenderness Skin: no rashes Extremities: no edema Neuro: Oriented X3, grossly intact Psych: cooperative Results Labs CBC and Chem 7: 01/27/21 03:11 01/27/21 03:11 Labs: Laboratory Results - last 24 hr 01/26/21 01/26/21 01/26/21 21:05 21:17 21:17 MCV 85.6 MCH 31.4 MCHC 36.7 H RDW 13.8 Plt Count 129 L D MPV 9.4 Immature Gran % (Auto) 1.7 H Neut % (Auto) 70.4 Lymph % (Auto) 14.2 L [place] % (Auto) 12.3 H Eos % (Auto) 1.3 Baso % (Auto) 0.1 Lymph # (Auto) 1.0 L [place] # (Auto) 0.9 Eos # (Auto) 0.1 Baso # (Auto) 0.0 Abs Immat Gran (auto) 0.12 H Absolute Neuts (auto) 4.9 Absolute Nucleated RBC 0.000 Nucleated RBC % (auto) 0.0 Smear Tech's Comments VERIFIED PT INR VBG pH VBG pCO2 VBG pO2 VBG HCO3 VBG O2 Saturation VBG Base Excess Anion Gap 24 H Estim Creat Clear Calc 17.8 Estimated GFR 8 POC Glucose 127 H Random Glucose 123 H Lactic Acid Calcium 7.3 L D Phosphorus Magnesium Total Bilirubin 0.9 Direct Bilirubin 0.4 AST 48 H D ALT 27 Alkaline Phosphatase 59 D Troponin I High Sens B-Natriuretic Peptide Total Protein 6.5 Albumin 3.5 Lipase 389 H Urine Color Urine Appearance Urine pH Ur Specific [place] Urine Protein Urine Glucose (UA) Urine Ketones Urine Blood Urine Nitrite Ur Leukocyte Esterase Urine RBC Urine WBC Ur Squamous Epith Cells Amorphous Sediment Urine Bacteria Hyaline Casts Urine Mucus C. difficile Tox B Gene COVID-19 (JUDD) COVID-19 Clin Com 01/26/21 01/26/21 01/26/21 21:17 21:17 21:17 MCV MCH MCHC RDW Plt Count MPV Immature Gran % (Auto) Neut % (Auto) Lymph % (Auto) [place] % (Auto) Eos % (Auto) Baso % (Auto) Lymph # (Auto) [place] # (Auto) Eos # (Auto) Baso # (Auto) Abs Immat Gran (auto) Absolute Neuts (auto) Absolute Nucleated RBC Nucleated RBC % (auto) Smear Tech's Comments PT 11.5 INR 1.0 VBG pH VBG pCO2 VBG pO2 VBG HCO3 VBG O2 Saturation VBG Base Excess Anion Gap Estim Creat Clear Calc Estimated GFR POC Glucose Random Glucose Lactic Acid 1.8 Calcium Phosphorus Magnesium Total Bilirubin Direct Bilirubin AST ALT Alkaline Phosphatase Troponin I High Sens 40.1 H* B-Natriuretic Peptide < 10 Total Protein Albumin Lipase Urine Color Urine Appearance Urine pH Ur Specific [place] Urine Protein Urine Glucose (UA) Urine Ketones Urine Blood Urine Nitrite Ur Leukocyte Esterase Urine RBC Urine WBC Ur Squamous Epith Cells Amorphous Sediment Urine Bacteria Hyaline Casts Urine Mucus C. difficile Tox B Gene COVID-19 (JUDD) COVID-19 Clin Com 01/26/21 01/26/21 01/27/21 21:17 21:17 00:12 MCV MCH MCHC RDW Plt Count MPV Immature Gran % (Auto) Neut % (Auto) Lymph % (Auto) [place] % (Auto) Eos % (Auto) Baso % (Auto) Lymph # (Auto) [place] # (Auto) Eos # (Auto) Baso # (Auto) Abs Immat Gran (auto) Absolute Neuts (auto) Absolute Nucleated RBC Nucleated RBC % (auto) Smear Tech's Comments PT INR VBG pH VBG pCO2 VBG pO2 VBG HCO3 VBG O2 Saturation VBG Base Excess Anion Gap Estim Creat Clear Calc Estimated GFR POC Glucose Random Glucose Lactic Acid Calcium Phosphorus Magnesium Total Bilirubin Direct Bilirubin AST ALT Alkaline Phosphatase Troponin I High Sens B-Natriuretic Peptide Total Protein Albumin Lipase Cancelled Urine Color YELLOW Urine Appearance HAZY Urine pH 5.5 Ur Specific [place] 1.025 Urine Protein 2+ H Urine Glucose (UA) NEG Urine Ketones NEG Urine Blood 3+ H Urine Nitrite NEG Ur Leukocyte Esterase NEG Urine RBC 5-9 H Urine WBC 1-4 Ur Squamous Epith Cells 3+ Amorphous Sediment 2+ Urine Bacteria 1+ Hyaline Casts 5-9 Urine Mucus 3+ C. difficile Tox B Gene COVID-19 (JUDD) Negative COVID-19 Clin Com See Note 01/27/21 01/27/21 01/27/21 00:12 03:11 03:11 MCV 87.7 MCH 32.2 MCHC 36.7 H RDW 14.0 Plt Count 119 L MPV 9.2 L Immature Gran % (Auto) 2.4 H Neut % (Auto) 69.3 Lymph % (Auto) 15.2 L [place] % (Auto) 12.2 H Eos % (Auto) 0.7 Baso % (Auto) 0.2 Lymph # (Auto) 0.9 L [place] # (Auto) 0.7 Eos # (Auto) 0.0 Baso # (Auto) 0.0 Abs Immat Gran (auto) 0.14 H Absolute Neuts (auto) 4.0 Absolute Nucleated RBC 0.000 Nucleated RBC % (auto) 0.0 Smear Tech's Comments PT INR VBG pH VBG pCO2 VBG pO2 VBG HCO3 VBG O2 Saturation VBG Base Excess Anion Gap 20 Estim Creat Clear Calc 21.7 Estimated GFR 10 POC Glucose Random Glucose 108 Lactic Acid Calcium 6.8 L D Phosphorus 4.9 H Magnesium 2.1 Total Bilirubin 0.7 Direct Bilirubin AST 40 H ALT 23 Alkaline Phosphatase 52 Troponin I High Sens B-Natriuretic Peptide Total Protein 5.4 L Albumin 2.9 L Lipase 457 H Urine Color Urine Appearance Urine pH Ur Specific [place] Urine Protein Urine Glucose (UA) Urine Ketones Urine Blood Urine Nitrite Ur Leukocyte Esterase Urine RBC Urine WBC Ur Squamous Epith Cells Amorphous Sediment Urine Bacteria Hyaline Casts Urine Mucus C. difficile Tox B Gene NEGATIVE COVID-19 (JUDD) COVID-19 Clin Com 01/27/21 01/27/21 01/27/21 03:11 04:04 04:07 MCV MCH MCHC RDW Plt Count MPV Immature Gran % (Auto) Neut % (Auto) Lymph % (Auto) [place] % (Auto) Eos % (Auto) Baso % (Auto) Lymph # (Auto) [place] # (Auto) Eos # (Auto) Baso # (Auto) Abs Immat Gran (auto) Absolute Neuts (auto) Absolute Nucleated RBC Nucleated RBC % (auto) Smear Tech's Comments PT INR VBG pH 7.29 L VBG pCO2 28 VBG pO2 39 VBG HCO3 14 L VBG O2 Saturation 56.0 VBG Base Excess -11.0 Anion Gap Cancelled Estim Creat Clear Calc Cancelled Estimated GFR Cancelled POC Glucose Random Glucose Cancelled Lactic Acid Calcium Cancelled Phosphorus Cancelled Magnesium Total Bilirubin Cancelled Direct Bilirubin AST Cancelled ALT Cancelled Alkaline Phosphatase Cancelled Troponin I High Sens 28.6 B-Natriuretic Peptide Total Protein Cancelled Albumin Cancelled Lipase Urine Color Urine Appearance Urine pH Ur Specific [place] Urine Protein Urine Glucose (UA) Urine Ketones Urine Blood Urine Nitrite Ur Leukocyte Esterase Urine RBC Urine WBC Ur Squamous Epith Cells Amorphous Sediment Urine Bacteria Hyaline Casts Urine Mucus C. difficile Tox B Gene COVID-19 (JUDD) COVID-19 Clin Com Imaging Radiologist's Impressions: Impressions Chest X-Ray 01/26/21 21:09 IMPRESSION: Stable chest. Abdomen/Pelvis CT 01/27/21 00:00 IMPRESSION: Mild dilatation of small bowel loops throughout the mid abdomen with scattered air-fluid levels. No bowel wall thickening. There is no transition point. Possible early ileus. No inflammation or free air in the abdomen or pelvis. The pancreas is normal. Assessment and Plan (1) Diarrhea: Status: Acute 60M presented with severe diarrhea, found to have heidi, hypotension, hypokalemia severe diarrhea complicated by HEIDI, hypotension, hypokalemia due to hypovolemia aggresive fluid ressucitation replace and monitor potassium hold bp meds, monitor, currently appears to be perfusing. cdif negative start imodium check stool culture empiric levaquin copd inhalers htn holding bp meds history of provoked DVT no longer on A/C RACHELE does not tolerate masks history of sinus pauses s/p PPM Quality Stroke Does the patient have a stroke diagnosis?: No VTE Prior VTE?: Yes VTE Risk Level:: Medical - moderate - high VTE Device Contraindication: Treatment Not Indicated VTE Drug Contraindication: N/A - Med Ordered
[2021-01-27 08:06] LABS: Anion Gap 18 (12-20); Blood Urea Nitrogen 60 mg/dL (9-16); Calcium 6.7 mg/dL (8.4-10.2); Carbon Dioxide 18 mmol/L (22-29); Chloride 100 mmol/L (96-108); Creatinine Clr Calc Pharmacy 30.7; Estimated Glomerular Filt Rate 15; Glucose Random 93 mg/dL (60-115); Magnesium 1.6 mg/dL (1.6-2.6); Potassium 2.9 mmol/L (3.3-5.1); Sodium 133 mmol/L (135-145)
[2021-01-27] MEDS: levoFLOXacin/D5W 500 MG/100 ML PIGGYBACK 100 MG IV (08:13)
[2021-01-27] MEDS: Pantoprazole Sodium 40 MG/10 ML VIAL IVPUSH (08:13)
[2021-01-27] MEDS: 0.9 % Sodium Chloride Flush 3 ML SYRINGE IVFLUSH ×3 (08:14→20:18)
[2021-01-27] MEDS: Loperamide HCl 2 MG CAPSULE 4 MG PO (08:25)
--- NOTE | 2021-01-27 08:45 | PC.NURSE ---
PT alert, oriented x 3. Denies any pain or discomfort at this time. Pt remains in trendelenberg position. Will continue to monitor.
[2021-01-27] MEDS: Potassium Chloride ER 20 MEQ TAB.ER.PRT 40 MEQ PO ×2 (12:19→15:05)
[2021-01-27] MEDS: Magnesium Sulfate/H2O 2 GM/50 ML PIGGYBACK IV (12:19)
--- NOTE | 2021-01-27 13:11 | PC.NURSE ---
report given to Kanu in c
--- NOTE | 2021-01-27 13:58 | MHC.CM.PN ---
CM met with Patient at bedside. Patient lives in a house with his /HCP and his goal is to return home/no services. CM has initiated and will follow for dc planning. PCP is Dr. Catalino Manuel.
[2021-01-27 14:17] LABS: Hematocrit 33.2 % (42-52); Hemoglobin 11.9 g/dl (14.0-18.0); Mean Corpuscular HGB Conc 35.8 g/dl (31.0-36.0); Mean Corpuscular Hemoglobin 31.2 pg (27.0-33.0); Mean Corpuscular Volume 86.9 fL (80-98); Mean Platelet Volume 8.4 fL (9.4-12.4); Platelet Count 114 X10*3/uL (160-400); Red Blood Count 3.82 X10*6/uL (4.60-5.80); Red Cell Distribution Width 13.9 % (11.0-16.0); White Blood Count 4.9 X10*3/uL (4.8-10.8)
[2021-01-27 14:42] LABS: Alanine Aminotransferase 24 U/L (0-40); Albumin Level 3.6 g/dL (3.5-5.0); Alkaline Phosphatase 51 U/L (39-117); Anion Gap 18 (12-20); Aspartate Amino Transferase 38 U/L (5-37); Bilirubin Total 0.6 mg/dL (0.0-1.0); Blood Urea Nitrogen 65 mg/dL (9-16); Calcium 7.4 mg/dL (8.4-10.2); Carbon Dioxide 19 mmol/L (22-29); Chloride 102 mmol/L (96-108); Creatinine Clr Calc Pharmacy 32.3; Estimated Glomerular Filt Rate 17; Glucose Random 116 mg/dL (60-115); Potassium 2.6 mmol/L (3.3-5.1); Sodium 136 mmol/L (135-145); Total Protein 6.2 g/dL (6.5-8.0)
[2021-01-27] MEDS: Magnesium Oxide 400 MG TABLET PO (16:36)
[2021-01-27] MEDS: Loperamide HCl 2 MG CAPSULE PO ×2 (16:36→22:44)
[2021-01-27 21:07] LABS: Anion Gap 16 (12-20); Blood Urea Nitrogen 61 mg/dL (9-16); Calcium 7.5 mg/dL (8.4-10.2); Carbon Dioxide 21 mmol/L (22-29); Chloride 104 mmol/L (96-108); Creatinine Clr Calc Pharmacy 38.4; Estimated Glomerular Filt Rate 20; Glucose Random 127 mg/dL (60-115); Potassium 2.5 mmol/L (3.3-5.1); Sodium 138 mmol/L (135-145)
[2021-01-28 03:55] VITALS: BP 110/59; PULSE 60; RESP 20; TEMP 36.8; O2SAT 99
[2021-01-28] MEDS: Lactated Ringers 1,000 ML 150 ML IVCONT (04:29)
[2021-01-28] MEDS: Heparin Sodium,Porcine 5,000 UNIT/ML VIAL 5000 UNIT SUBCUT ×3 (05:43→21:22)
[2021-01-28 06:48] LABS: Hematocrit 32.2 % (42-52); Hemoglobin 11.5 g/dl (14.0-18.0); Mean Corpuscular HGB Conc 35.7 g/dl (31.0-36.0); Mean Corpuscular Hemoglobin 31.4 pg (27.0-33.0); Mean Platelet Volume 9.2 fL (9.4-12.4); Platelet Count 122 X10*3/uL (160-400); Red Blood Count 3.66 X10*6/uL (4.60-5.80); Red Cell Distribution Width 14.2 % (11.0-16.0); White Blood Count 4.7 X10*3/uL (4.8-10.8)
[2021-01-28 07:27] LABS: Alanine Aminotransferase 21 U/L (0-40); Albumin Level 3.1 g/dL (3.5-5.0); Alkaline Phosphatase 43 U/L (39-117); Anion Gap 14 (12-20); Aspartate Amino Transferase 35 U/L (5-37); Bilirubin Total 0.4 mg/dL (0.0-1.0); Blood Urea Nitrogen 54 mg/dL (9-16); C Reactive Protein 4.68 mg/dL (< or = 0.50); Calcium 7.4 mg/dL (8.4-10.2); Carbon Dioxide 20 mmol/L (22-29); Chloride 106 mmol/L (96-108); Creatinine Clr Calc Pharmacy 50.7; Estimated Glomerular Filt Rate 28; Glucose Fasting 115 mg/dL (60-99); Magnesium 2.4 mg/dL (1.6-2.6); Potassium 2.6 mmol/L (3.3-5.1); Sodium 137 mmol/L (135-145); Total Protein 5.2 g/dL (6.5-8.0)
[2021-01-28 07:56] VITALS: BP 100/63; PULSE 61; RESP 18; TEMP 36.1; O2SAT 100
[2021-01-28 09:17] LABS: Leukocytes Stool Qualitative NEGATIVE (NEGATIVE)
[2021-01-28] MEDS: Magnesium Oxide 400 MG TABLET PO ×2 (09:45→17:04)
[2021-01-28] MEDS: Potassium Chloride ER 20 MEQ TAB.ER.PRT 40 MEQ PO (09:46)
--- NOTE | 2021-01-28 11:20 | P.PNIM_ITS ---
Subjective Subjective Date of Service: 01/28/21 Interval History: no change in diarrhea Cardiovascular Cardiovascular: Reports no additional cardiovascular complaints Respiratory Respiratory: Reports no additional respiratory complaints Physical Exam Vital Signs: Vital Signs: Last Vital Signs Temp 97 F 01/28/21 07:56 Pulse 61 01/28/21 07:56 Resp 18 01/28/21 07:56 BP 100/63 01/28/21 07:56 Pulse Ox 100 01/28/21 07:56 Body Mass Index 41.8 General: AO X 3, appears more well than yesterday Resp: CTA bilateral CVS: S1,S2,RRR GI: soft, non tender, non distended Neuro: motor grossly intact Psych: appropriate affect Objective Data Active Medications Acetaminophen (Acetaminophen 325 Mg Tablet) 650 mg PO Q6H PRN PRN Reason: Pain, Mild (Pain Scale 1-3) Fluticasone/Vilanterol (Fluticasone/Vilanterol 100/25 Blst.W.Dev) 1 puff INHALE DAILY [facility] Last Admin: 01/28/21 07:29 Dose: Not Given Documented by: KATHRINE Non-Admin Reason: Med Not Available Heparin Sodium (Porcine) (Heparin Sodium,Porcine 5,000 Unit/Ml Vial) 5,000 unit SUBCUT Q8H [facility] Last Admin: 01/28/21 05:43 Dose: 5,000 unit Documented by: CLARENCE Lactated Ringer's (Lr) 1,000 mls @ 150 mls/hr IVCONT .Q6H40M [facility] Last Admin: 01/28/21 04:29 Dose: 150 mls/hr Documented by: CLARENCE Levofloxacin (Levaquin) 500 mg in 100 mls @ 100 mls/hr IV Q48H [facility] Last Infusion: 01/27/21 13:22 Dose: 0 mls/hr Documented by: CHRIS Loperamide HCl (Loperamide Hcl 2 Mg Capsule) 4 mg PO Q4H PRN PRN Reason: Diarrhea Magnesium Oxide (Magnesium Oxide 400 Mg Tablet) 400 mg PO BIDPC [facility] Last Admin: 01/28/21 09:45 Dose: 400 mg Documented by: DOBROB Ondansetron HCl (Ondansetron Hcl 4 Mg/2 Ml Vial) 4 mg IVPUSH Q8H PRN PRN Reason: nausea Oxycodone HCl (Oxycodone Hcl Immed Release 5 Mg Tablet) 5 mg PO Q6H PRN PRN Reason: Pain, Severe (Pain Scale 7-10) Pharmacy Consult (Consult Rx Perform Med Rec) 1 each MISCELLANE ONCE PRN PRN Reason: Consult order Sodium Bicarbonate (Sodium Bicarbonate 650 Mg Tablet) 650 mg PO TID [facility] Sodium Chloride (0.9 % Sodium Chloride Flush 3 Ml Syringe) 3 ml IVFLUSH QSHIFT ELAINE Last Admin: 01/28/21 09:47 Dose: Not Given Documented by: YENI Non-Admin Reason: IV Running Labs CBC & Chem 7: 01/28/21 05:26 01/28/21 05:26 Labs: Laboratory Results - last 24 hr 01/27/21 01/27/21 01/27/21 14:10 14:10 20:28 MCV 86.9 MCH 31.2 MCHC 35.8 RDW 13.9 Plt Count 114 L MPV 8.4 L Absolute Nucleated RBC 0.000 Nucleated RBC % (auto) 0.0 Anion Gap 18 16 Estim Creat Clear Calc 32.3 38.4 Estimated GFR 17 20 Random Glucose 116 H 127 H Fasting Glucose Calcium 7.4 L D 7.5 L Magnesium Total Bilirubin 0.6 AST 38 H ALT 24 Alkaline Phosphatase 51 C-Reactive Protein Total Protein 6.2 L Albumin 3.6 D Stool Leukocytes, Qual 01/27/21 01/28/21 01/28/21 Unknown 05:26 05:26 MCV 88.0 MCH 31.4 MCHC 35.7 RDW 14.2 Plt Count 122 L MPV 9.2 L Absolute Nucleated RBC 0.000 Nucleated RBC % (auto) 0.0 Anion Gap 14 Estim Creat Clear Calc 50.7 Estimated GFR 28 Random Glucose TNP Fasting Glucose 115 H Calcium 7.4 L Magnesium 2.4 Total Bilirubin 0.4 AST 35 ALT 21 Alkaline Phosphatase 43 C-Reactive Protein 4.68 H Total Protein 5.2 L Albumin 3.1 L Stool Leukocytes, Qual NEGATIVE Microbiology Microbiology Results: Microbiology 01/27/21 00:00 Stool Culture - Preliminary Stool Culture in progress. 01/26/21 21:17 Blood Culture - Preliminary Blood - Venous No growth after 24 hours. 01/26/21 21:17 Blood Culture - Preliminary Blood - Venous No growth after 24 hours. Assessment and Plan (1) Diarrhea: Status: Acute Assessment and Plan: ?60M presented with severe diarrhea, found to have heidi, hypotension, hypokalemia severe diarrhea complicated by HEIDI, hypotension, hypokalemia due to hypovolemia hypotension improved still with significant diarrhea renal function improving continue aggressive fluid resuscitation replace and monitor potassium holding bp meds, monitor cdif negative increased imodium follow up stool culture continue empiric levaquin copd inhalers htn holding bp meds history of provoked DVT no longer on A/C RACHELE does not tolerate masks history of sinus pauses s/p PPM Quality Stroke Does the patient have a stroke diagnosis?: No VTE Prior VTE?: Yes VTE Risk Level:: Medical - moderate - high VTE Device Contraindication: Treatment Not Indicated VTE Drug Contraindication: N/A - Med Ordered
[2021-01-28 11:34] VITALS: BP 96/56; PULSE 86; RESP 18; TEMP 36.1; O2SAT 99
[2021-01-28] MEDS: Loperamide HCl 2 MG CAPSULE 4 MG PO (12:52)
[2021-01-28] MEDS: Sodium Bicarbonate 650 MG TABLET PO ×2 (15:05→21:22)
[2021-01-28 15:21] VITALS: BP 103/67; PULSE 65; RESP 18; TEMP 36.4; O2SAT 95
[2021-01-28] MEDS: 0.9 % Sodium Chloride Flush 3 ML SYRINGE IVFLUSH ×2 (17:04→21:22)
[2021-01-28 19:31] VITALS: BP 136/61; PULSE 70; RESP 18; TEMP 36.6; O2SAT 100
[2021-01-28 20:40] LABS: Anion Gap 14 (12-20); Blood Urea Nitrogen 42 mg/dL (9-16); Calcium 7.8 mg/dL (8.4-10.2); Carbon Dioxide 21 mmol/L (22-29); Chloride 108 mmol/L (96-108); Estimated Glomerular Filt Rate 41; Glucose Random 102 mg/dL (60-115); Sodium 140 mmol/L (135-145)
[2021-01-29] VITALS: BP 123/61; PULSE 65; RESP 18; TEMP 36.6; O2SAT 99
[2021-01-29 03:46] VITALS: BP 110/56; PULSE 63; RESP 18; TEMP 36.5; O2SAT 98
[2021-01-29 05:58] LABS: Hematocrit 33.4 % (42-52); Hemoglobin 11.4 g/dl (14.0-18.0); Mean Corpuscular HGB Conc 34.1 g/dl (31.0-36.0); Mean Corpuscular Hemoglobin 30.7 pg (27.0-33.0); Mean Platelet Volume 8.8 fL (9.4-12.4); Platelet Count 158 X10*3/uL (160-400); Red Blood Count 3.71 X10*6/uL (4.60-5.80); Red Cell Distribution Width 14.6 % (11.0-16.0); White Blood Count 5.2 X10*3/uL (4.8-10.8)
[2021-01-29 06:14] LABS: Anion Gap 11 (12-20); Blood Urea Nitrogen 32 mg/dL (9-16); Calcium 7.7 mg/dL (8.4-10.2); Carbon Dioxide 22 mmol/L (22-29); Chloride 111 mmol/L (96-108); Creatinine Clr Calc Pharmacy 104.1; Estimated Glomerular Filt Rate > 60; Glucose Fasting 102 mg/dL (60-99); Magnesium 2.2 mg/dL (1.6-2.6); Sodium 141 mmol/L (135-145)
[2021-01-29] MEDS: levoFLOXacin/D5W 500 MG/100 ML PIGGYBACK 100 MG IV (06:21)
[2021-01-29] MEDS: Heparin Sodium,Porcine 5,000 UNIT/ML VIAL 5000 UNIT SUBCUT ×3 (06:21→20:59)
[2021-01-29] MEDS: Sodium Bicarbonate 650 MG TABLET PO ×3 (07:23→20:59)
[2021-01-29] MEDS: Potassium Chloride ER 20 MEQ TAB.ER.PRT 40 MEQ PO (07:23)
[2021-01-29] MEDS: Magnesium Oxide 400 MG TABLET PO ×2 (07:23→18:15)
[2021-01-29] MEDS: 0.9 % Sodium Chloride Flush 3 ML SYRINGE IVFLUSH ×2 (07:26→14:41)
[2021-01-29 08:00] VITALS: BP 110/67; PULSE 63; RESP 20; TEMP 36.7; O2SAT 99
[2021-01-29 11:53] VITALS: BP 104/61; PULSE 63; RESP 20; TEMP 36.2; O2SAT 99
--- NOTE | 2021-01-29 12:25 | P.PNIM_ITS ---
Subjective Subjective Date of Service: 01/29/21 Interval History: feeling stronger but still reporting significant diarrhea Cardiovascular Cardiovascular: Reports no additional cardiovascular complaints Respiratory Respiratory: Reports no additional respiratory complaints Physical Exam Vital Signs: Vital Signs: Last Vital Signs Temp 97.2 F 01/29/21 11:53 Pulse 63 01/29/21 11:53 Resp 20 01/29/21 11:53 BP 104/61 01/29/21 11:53 Pulse Ox 99 01/29/21 11:53 Body Mass Index 41.8 General: AO X 3, no acute distress Resp: CTA bilateral CVS: S1,S2,RRR GI: soft, non tender, non distended Neuro: motor grossly intact Psych: appropriate affect Objective Data Active Medications Acetaminophen (Acetaminophen 325 Mg Tablet) 650 mg PO Q6H PRN PRN Reason: Pain, Mild (Pain Scale 1-3) Fluticasone/Vilanterol (Fluticasone/Vilanterol 100/25 Blst.W.Dev) 1 puff INHALE DAILY [facility] Last Admin: 01/29/21 10:14 Dose: Not Given Documented by: ANALY Non-Admin Reason: med not avail Heparin Sodium (Porcine) (Heparin Sodium,Porcine 5,000 Unit/Ml Vial) 5,000 unit SUBCUT Q8H [facility] Last Admin: 01/29/21 06:21 Dose: 5,000 unit Documented by: JONNIE Levofloxacin (Levaquin) 500 mg in 100 mls @ 100 mls/hr IV Q24H [facility] Potassium Chloride 20 meq/ (Lactated Ringer's) 1,010 mls @ 150 mls/hr IVCONT .Q6H44M [facility] Last Infusion: 01/29/21 12:24 Dose: 0 mls/hr Documented by: EFRAIN Loperamide HCl (Loperamide Hcl 2 Mg Capsule) 4 mg PO Q4H PRN PRN Reason: Diarrhea Last Admin: 01/28/21 12:52 Dose: 4 mg Documented by: OMAR Magnesium Oxide (Magnesium Oxide 400 Mg Tablet) 400 mg PO BIDPC [facility] Last Admin: 01/29/21 07:23 Dose: 400 mg Documented by: EFRAIN Ondansetron HCl (Ondansetron Hcl 4 Mg/2 Ml Vial) 4 mg IVPUSH Q8H PRN PRN Reason: nausea Oxycodone HCl (Oxycodone Hcl Immed Release 5 Mg Tablet) 5 mg PO Q6H PRN PRN Reason: Pain, Severe (Pain Scale 7-10) Pharmacy Consult (Consult Rx Perform Med Rec) 1 each MISCELLANE ONCE PRN PRN Reason: Consult order Sodium Bicarbonate (Sodium Bicarbonate 650 Mg Tablet) 650 mg PO TID [facility] Last Admin: 01/29/21 07:23 Dose: 650 mg Documented by: EFRAIN Sodium Chloride (0.9 % Sodium Chloride Flush 3 Ml Syringe) 3 ml IVFLUSH QSHIFT [facility] Last Admin: 01/29/21 07:26 Dose: 3 ml Documented by: EFRAIN Labs CBC & Chem 7: 01/29/21 05:45 01/29/21 05:45 Labs: Laboratory Results - last 24 hr 01/27/21 01/28/21 01/29/21 04:04 20:13 05:45 MCV 90.0 MCH 30.7 MCHC 34.1 RDW 14.6 Plt Count 158 L D MPV 8.8 L Absolute Nucleated RBC 0.000 Nucleated RBC % (auto) 0.0 Anion Gap 14 Estim Creat Clear Calc 71.0 Estimated GFR 41 Random Glucose 102 Fasting Glucose Calcium 7.8 L Magnesium Cortisol 14.7 01/29/21 05:45 MCV MCH MCHC RDW Plt Count MPV Absolute Nucleated RBC Nucleated RBC % (auto) Anion Gap 11 L Estim Creat Clear Calc 104.1 Estimated GFR > 60 Random Glucose Fasting Glucose 102 H Calcium 7.7 L Magnesium 2.2 Cortisol Microbiology Microbiology Results: Microbiology 01/27/21 00:00 Stool Culture - Preliminary Stool Culture in progress. 01/26/21 21:17 Blood Culture - Preliminary Blood - Venous No growth after 48 hours. 01/26/21 21:17 Blood Culture - Preliminary Blood - Venous No growth after 48 hours. Assessment and Plan (1) Diarrhea: Status: Acute (2) Acute kidney failure with tubular necrosis: Status: Acute (3) Acute hypokalemia: Status: Acute Assessment and Plan: ?60M presented with severe diarrhea, found to have william, hypotension, hypokalemia severe diarrhea complicated by WILLIAM, hypotension, hypokalemia due to hypovolemia hypotension resolved WILLIAM significantly improved hypokalemia improved still with significant diarrhea continue aggressive fluid resuscitation replace and monitor potassium holding bp meds, monitor cdif negative continue imodium follow up stool culture continue empiric levaquin copd inhalers htn holding bp meds history of provoked DVT no longer on A/C RACHELE does not tolerate masks history of sinus pauses s/p PPM Quality Stroke Does the patient have a stroke diagnosis?: No VTE Prior VTE?: Yes VTE Risk Level:: Medical - moderate - high VTE Device Contraindication: Treatment Not Indicated VTE Drug Contraindication: N/A - Med Ordered
[2021-01-29 15:19] VITALS: BP 106/69; PULSE 71; RESP 18; TEMP 36.5; O2SAT 98
[2021-01-29 19:13] VITALS: BP 106/63; PULSE 63; RESP 18; TEMP 36.9; O2SAT 99
[2021-01-30] VITALS (7 sets, daily range): BP systolic 110–164; BP diastolic 62–88; PULSE 62–68; RESP 18–19; TEMP 35.8–37.2; O2SAT 95–100
[2021-01-30] MEDS: levoFLOXacin/D5W 500 MG/100 ML PIGGYBACK 100 MG IV (06:04)
[2021-01-30] MEDS: Heparin Sodium,Porcine 5,000 UNIT/ML VIAL 5000 UNIT SUBCUT ×3 (06:04→20:59)
[2021-01-30 06:25] LABS: Hematocrit 31.7 % (42-52); Hemoglobin 10.7 g/dl (14.0-18.0); Mean Corpuscular HGB Conc 33.8 g/dl (31.0-36.0); Mean Corpuscular Hemoglobin 31.2 pg (27.0-33.0); Mean Corpuscular Volume 92.4 fL (80-98); Mean Platelet Volume 8.7 fL (9.4-12.4); Platelet Count 189 X10*3/uL (160-400); Red Blood Count 3.43 X10*6/uL (4.60-5.80); Red Cell Distribution Width 14.6 % (11.0-16.0); White Blood Count 5.5 X10*3/uL (4.8-10.8)
[2021-01-30 06:37] LABS: Anion Gap 9 (12-20); Blood Urea Nitrogen 16 mg/dL (9-16); Calcium 7.9 mg/dL (8.4-10.2); Carbon Dioxide 24 mmol/L (22-29); Chloride 112 mmol/L (96-108); Creatinine Clr Calc Pharmacy 142.1; Estimated Glomerular Filt Rate > 60; Glucose Fasting 104 mg/dL (60-99); Magnesium 1.9 mg/dL (1.6-2.6); Potassium 3.4 mmol/L (3.3-5.1); Sodium 142 mmol/L (135-145)
[2021-01-30] MEDS: Sodium Bicarbonate 650 MG TABLET PO (09:37)
[2021-01-30] MEDS: Magnesium Oxide 400 MG TABLET PO (09:37)
[2021-01-30] MEDS: Lactated Ringers 1,000 ML 100 ML IVCONT ×2 (13:21→20:59)
--- NOTE | 2021-01-30 16:52 | P.PNIM_ITS ---
Subjective Subjective Date of Service: 01/30/21 Interval History: Patient complaining of persistent diarrhea but less frequent episode and more formed, and lower abdominal discomfort, tolerating regular diet, no nausea, no vomiting, no fever, no chills. Review of Systems General no headache, no dizziness, no fever chills. CVS no chest pain, no palpitation. Respiratory no cough no sob. Gastrointestinal no nausea,no vomiting Physical Exam Vital Signs: Vital Signs: Last Vital Signs Temp 96.5 F L 01/30/21 15:48 Pulse 68 01/30/21 15:48 Resp 18 01/30/21 15:48 BP 142/79 H 01/30/21 15:48 Pulse Ox 100 01/30/21 15:48 Body Mass Index 41.8 General no acute distress. Neck supple no JVD. CVS regular rate rhythm, Respiratory lungs clear to auscultation, no respiratory distress, no wheeze, no rhonchi. Gastrointestinal abdomen soft, nontender, bowel sounds audible, no guarding , no rigidity. Extremities no edema. Neuro nonfocal Skin no rash Objective Data Active Medications Acetaminophen (Acetaminophen 325 Mg Tablet) 650 mg PO Q6H PRN PRN Reason: Pain, Mild (Pain Scale 1-3) Fluticasone/Vilanterol (Fluticasone/Vilanterol 100/25 Blst.W.Dev) 1 puff INHALE DAILY [facility] Last Admin: 01/30/21 07:35 Dose: Not Given Documented by: PATRIA Non-Admin Reason: Patient Refused Heparin Sodium (Porcine) (Heparin Sodium,Porcine 5,000 Unit/Ml Vial) 5,000 unit SUBCUT Q8H [facility] Last Admin: 01/30/21 14:03 Dose: 5,000 unit Documented by: FADI Lactated Ringer's (Lr) 1,000 mls @ 100 mls/hr IVCONT .Q10H [facility] Last Admin: 01/30/21 13:21 Dose: 100 mls/hr Documented by: FADI Loperamide HCl (Loperamide Hcl 2 Mg Capsule) 4 mg PO Q4H PRN PRN Reason: Diarrhea Last Admin: 01/28/21 12:52 Dose: 4 mg Documented by: OMAR Ondansetron HCl (Ondansetron Hcl 4 Mg/2 Ml Vial) 4 mg IVPUSH Q8H PRN PRN Reason: nausea Oxycodone HCl (Oxycodone Hcl Immed Release 5 Mg Tablet) 5 mg PO Q6H PRN PRN Reason: Pain, Severe (Pain Scale 7-10) Pharmacy Consult (Consult Rx Perform Med Rec) 1 each MISCELLANE ONCE PRN PRN Reason: Consult order Sodium Bicarbonate (Sodium Bicarbonate 650 Mg Tablet) 650 mg PO TID [facility] Last Admin: 01/30/21 09:37 Dose: 650 mg Documented by: FADI Sodium Chloride (0.9 % Sodium Chloride Flush 3 Ml Syringe) 3 ml IVFLUSH QSHIFT [facility] Last Admin: 01/30/21 13:22 Dose: Not Given Documented by: FADI Non-Admin Reason: IV Running Labs CBC & Chem 7: 01/30/21 05:28 01/30/21 05:28 Labs: Laboratory Results - last 24 hr 01/30/21 01/30/21 05:28 05:28 MCV 92.4 MCH 31.2 MCHC 33.8 RDW 14.6 Plt Count 189 MPV 8.7 L Absolute Nucleated RBC 0.000 Nucleated RBC % (auto) 0.0 Anion Gap 9 L Estim Creat Clear Calc 142.1 Estimated GFR > 60 Fasting Glucose 104 H Calcium 7.9 L Magnesium 1.9 Microbiology Microbiology Results: Microbiology 01/27/21 00:00 Stool Culture - Preliminary Stool Salmonella species Assessment and Plan (1) Diarrhea: Status: Acute (2) Acute kidney failure with tubular necrosis: Status: Acute (3) Acute hypokalemia: Status: Acute (4) Morbid obesity: Status: Acute Assessment and Plan: 60M presented with severe diarrhea, found to have william, hypotension, hypokalemia severe diarrhea complicated by WILLIAM, hypotension, hypokalemia due to hypovolemia hypotension, hypokalemia and WILLIAM resolved Diarrhea slowing down, continue IV fluids change diet to low residue, lactose- free, DC magnesium supplements cdif negative stool culture positive for Salmonella DC Imodium Will DC Campbell catheter recommend out of bed to chair and ambulation,follow bmp copd No acute exacerbation, inhalers htn BP meds were held, now BP trending up will resume Coreg Morbid obesity weight reduction recommended history of provoked DVT no longer on A/C RACHELE does not tolerate masks history of sinus pauses s/p PPM Quality Stroke Does the patient have a stroke diagnosis?: No VTE Prior VTE?: Yes VTE Risk Level:: Medical - moderate - high VTE Device Contraindication: Treatment Not Indicated VTE Drug Contraindication: N/A - Med Ordered
[2021-01-30] MEDS: Potassium Chloride ER 20 MEQ TAB.ER.PRT PO (18:02)
[2021-01-31 03:29] VITALS: BP 151/72; PULSE 64; RESP 20; TEMP 36.8; O2SAT 98
[2021-01-31] MEDS: Lactated Ringers 1,000 ML 100 ML IVCONT (05:28)
[2021-01-31] MEDS: Heparin Sodium,Porcine 5,000 UNIT/ML VIAL 5000 UNIT SUBCUT (05:28)
[2021-01-31 07:13] LABS: Anion Gap 9 (12-20); Blood Urea Nitrogen 12 mg/dL (9-16); Calcium 7.9 mg/dL (8.4-10.2); Carbon Dioxide 24 mmol/L (22-29); Chloride 112 mmol/L (96-108); Creatinine Clr Calc Pharmacy 152.9; Estimated Glomerular Filt Rate > 60; Glucose Random 99 mg/dL (60-115); Potassium 3.4 mmol/L (3.3-5.1); Sodium 142 mmol/L (135-145)
[2021-01-31 07:23] VITALS: BP 134/74; PULSE 60; RESP 18; TEMP 37; O2SAT 98
[2021-01-31] MEDS: 0.9 % Sodium Chloride Flush 3 ML SYRINGE IVFLUSH (10:30)
[2021-01-31 11:23] VITALS: BP 125/68; PULSE 62; RESP 20; TEMP 36.9; O2SAT 98
--- NOTE | 2021-01-31 11:39 | MHC.CM.PN ---
Per ROUNDS discussion, Patient will be medically cleared for dc to home today, no services.
--- NOTE | 2021-01-31 12:15 | PM.DS ---
DS: Providers Provider Date of Service: 01/31/21 Date of admission: 01/27/21 07:10 Primary care physician: Catalino Manuel [facility] DS: Diagnosis Discharge Diagnosis (1) Diarrhea: Status: Acute (2) Acute kidney failure with tubular necrosis: Status: Acute (3) Acute hypokalemia: Status: Acute (4) Morbid obesity: Status: Acute DS: Summary Hospital Course Hospital Course: History presenting illness Chief Complaint: diarrhea, weakness 60M presented with 6 days of water diarrhea. patient states that around 6 days ptp he started to have profuse mucusy/watery diarrhea, multiple times a day, denies fever, chills, sob, chest pain. no significant abdominal pain, no blood in stool, has been mostly staying home since the beginning of the COVID pandemic. denies sick contacts, recent questionable foods. has been feeling lightheaded, but still taking his blood pressure meds. in ED found to be hypotensive, had 15 BMs while in ED. severe HEIDI and hypokalemia. patient was evaluated by intesive care team, he was given 4 bolus's of normal saline and started on LR and given albumin. blood pressure has since improved. patient mentating well. therefore, was decided patient does not require ICU level of care at this time. Hospital course 60M presented with severe diarrhea, found to have heidi, hypotension, hypokalemia, patient treated with IV fluids, patient diarrhea gradually improved, diet has been advanced and patient is tolerating low residue diet, workup revealed stool culture positive for Salmonella, C diff was negative, all stool softeners were held, all symptoms of renal failure hypotension and hypokalemia resolved since patient is hemodynamically stable he is being discharged home and recommended to hold all stool softeners his blood pressure medications were also held he has been recommended to gradually introduce 1 medication at a time and to have close outpatient follow-up with primary care physician for close blood pressure checks. In regard to chronic medical issues including COPD he had no acute exacerbation, he has been recommended to lose weight due to morbid obesity Time Spent with Patient Time attestation: Total time spent providing and/or coordinating discharge services: Discharge coordination time: Greater than 30 minutes Quality: Stroke Does the patient have a stroke diagnosis?: No Physical Exam Vital Signs: Vital Signs: Last Vital Signs Temp 98.5 F 01/31/21 11:23 Pulse 62 01/31/21 11:23 Resp 20 01/31/21 11:23 BP 125/68 01/31/21 11:23 Pulse Ox 98 01/31/21 11:23 Body Mass Index 41.8 General? no acute distress.? Neck? s upple no JVD. CVS? regular rate rhyt hm, Respiratory libertad ngs clear to auscu ltation, no respir atory distress, no wheeze, no rhonch i. Gastrointestina l abdomen soft, no ntender, bowel nura nds audible, no gu arding , no rigidi ty. Extremities no edema. Neuro nonf ocal Skin no rash DS: Data Data Completed and Pending Labs on day of discharge: Laboratory Results - last 24 hr 01/31/21 05:32 Sodium 142 Potassium 3.4 Chloride 112 H Carbon Dioxide 24 Anion Gap 9 L BUN 12 Creatinine 0.79 Estim Creat Clear Calc 152.9 Estimated GFR > 60 Random Glucose 99 Calcium 7.9 L Preliminary micro results at discharge 01/27/21 00:00 Stool Culture - Preliminary Stool Salmonella species 01/26/21 21:17 Blood Culture - Preliminary Blood - Venous No growth after 48 hours. 01/26/21 21:17 Blood Culture - Preliminary Blood - Venous No growth after 48 hours. Discharge Plan Discharge Patient Disposition: Home, Self-Care Discharge Diagnosis: Acute renal failure Hypokalemia Hypotension Intractable diarrhea due to Salmonella infection Morbid obesity Referrals: Catalino Manuel [facility]- [Primary Care Provider] - 1 Week Discharge Medications: Continued fluticasone propion-salmeterol [Advair Diskus] 250-50 mcg/dose blister with device 1 puff inhalation BID RF: 0 carvedilol 6.25 mg tablet 1 tab PO BID RF: 0 aspirin 81 mg tablet,chewable 1 tab PO DAILY RF: 0 folic acid 1 mg tablet 1 tab PO DAILY RF: 0 albuterol sulfate 90 mcg/actuation HFA aerosol inhaler 2 puff inhalation Q4-6H PRN (Reason: wheezing) RF: 0 Held losartan 50 mg tablet 1 tab PO DAILY RF: 0 Hold Instructions: Resume on 02/05/21. amlodipine 10 mg tablet 1 tab PO DAILY RF: 0 Hold Instructions: Resume on 02/02/21. furosemide 20 mg tablet 1 tab PO DAILY RF: 0 Hold Instructions: Resume on 02/05/21. Discontinued docusate sodium 100 mg capsule 2 cap PO BEDTIME RF: 0 polyethylene glycol 3350 [Gavilax] 17 gram/dose powder 17 g PO DAILY RF: 0 psyllium husk [Fiber Laxative (psyllium husk)] 0.52 gram capsule 1 tab PO BID RF: 0 Discharge Orders: Discharge Order (Routine); Ordered 01/31/21 Ordered By: Donna Hussein Diet: low fat, low cholesterol and low salt diet Activity on Discharge: As tolerated Stand Alone Forms: Patient Portal Discharge page Care Plan Goals: Acute renal failure, hypotension and hypokalemia resolved, diarrhea improving, all symptoms related to salmonella infection, continued to drink fluids, low residue diet Hold Lasix and lisinopril and Norvasc , check blood pressure closely, and follow-up with PCP to adjust blood pressure medications in 1 week, hold all stool softeners till diarrhea resolved. Health Concerns: Hypertension, noted to have low blood pressure on admission therefore hold norvasc, lisinopril and Lasix as above, start coreg from tomorrow,follow up with pcp in 1 week and follow up on bp meds Plan of Treatment: Outpatient follow-up with primary care physician in 1 week. Assessment: As above
[2021-02-02 22:03] LABS: Cortisol, Free 0.62 mcg/dL
== END 2021-01-31 16:52 | disposition home or self-care (01) | DRG 248 ==
LOC: HO.ED 21:08 → HO.EDOVER 01-27 08:02 → HO.IMC 01-27 12:01
PROVIDERS: Physician Assistant Medical; Admitting Provider Internal Medicine; Emergency Provider Emergency Medicine; PCP Nurse Practitioner Family; Visit Provider Hospitalist
DX: A02.0 Salmonella enteritis (principal); N17.0 Acute kidney failure with tubular necrosis; Z68.41 Body mass index [BMI] 40.0-44.9, adult; I95.9 Hypotension, unspecified; E66.01 Morbid (severe) obesity due to excess calories; E87.6 Hypokalemia; I10 Essential (primary) hypertension; Z86.718 Personal history of other venous thrombosis and embolism; Z20.822 Contact with and (suspected) exposure to COVID-19; Z87.891 Personal history of nicotine dependence; Z79.899 Other long term (current) drug therapy
CPT/HCPCS: 36415; 71045; 74176; 80048; 80053; 80076; 81001; 82530; 82533; 82803; 82947; 83605; 83690; 83735; 83880; 84100; 84484; 85025; 85027; 85610; 86140; 87040; 87045; 87046; 87177; 87209; 87493; 87635; 89055; 93005; 96361; 96374; 96375; 99285; 99291; 99292; J0696; J1956; J3475; P9047

== ENCOUNTER 2021-02-03 07:21 | Outpatient (REF) | payer BC, SELFPAY ==
[2021-02-03 11:42] LABS: Alanine Aminotransferase 24 U/L (0-40); Albumin Level 3.3 g/dL (3.5-5.0); Alkaline Phosphatase 59 U/L (39-117); Anion Gap 10 (12-20); Aspartate Amino Transferase 17 U/L (5-37); Bilirubin Total 0.3 mg/dL (0.0-1.0); Blood Urea Nitrogen 9 mg/dL (9-16); Calcium 7.8 mg/dL (8.4-10.2); Carbon Dioxide 30 mmol/L (22-29); Chloride 105 mmol/L (96-108); Cholesterol 145 mg/dL; Estimated Glomerular Filt Rate > 60; Glucose Fasting 108 mg/dL (60-99); HDL Cholesterol 33 mg/dL; LDL Cholesterol Calculated 86 mg/dl; Potassium 3.3 mmol/L (3.3-5.1); Sodium 142 mmol/L (135-145); Total Protein 5.8 g/dL (6.5-8.0); Triglycerides 131 mg/dL
[2021-02-03 12:05] LABS: Prostate Specific Antigen Scr 1.38 ng/mL (<0.05-4.0); TSH reflex Free T4 2.37 uIU/mL (0.32-4.0)
== END 2021-02-03 07:22 | disposition home or self-care (01) ==
LOC: HO.HMGCLDS 07:21
PROVIDERS: PCP Nurse Practitioner Family; Visit Provider Nurse Practitioner Family
DX: I10 Essential (primary) hypertension (principal); Z12.5 Encounter for screening for malignant neoplasm of prostate
CPT/HCPCS: 36415; 80053; 80061; 84153; 84443

== ENCOUNTER 2021-02-05 14:48 | Outpatient (REF) | payer BC, SELFPAY ==
--- NOTE | ~2021-02-05 | US_ITS ---
EXAMINATION: US VENOUS ULTRASOUND WITH DOPPLER LOWER EXTREMITY, BILATERAL CLINICAL INFORMATION: Bilateral leg pain and swelling. COMPARISON: None TECHNIQUE: Ultrasound of the deep veins is performed from the hip to the calf with compression sonography and color and pulse Doppler assessment. Spectral analysis with color-flow imaging is performed. FINDINGS: RIGHT: There is normal venous compression and respiratory variation and augmented flow. The visualized common femoral vein, superficial femoral vein, profunda femoral vein, popliteal vein, and the trifurcation region shows no evidence of deep venous thrombosis. There is no significant popliteal fossa cyst. There is mild calf edema. LEFT: There is normal venous compression and respiratory variation and augmented flow. The visualized common femoral vein, superficial femoral vein, profunda femoral vein, popliteal vein, and the trifurcation region shows no evidence of deep venous thrombosis. There is no significant popliteal fossa cyst. There is mild calf edema. If the patient's symptoms persist, followup ultrasound in 5 days 7 days might be of value to exclude proximal propagation from a non-visualized calf vein. US/US venous duplex LE BI IMPRESSION: No DVT demonstrated in the bilateral lower extremity. There is bilateral calf edema.
== END 2021-02-05 14:49 | disposition home or self-care (01) ==
LOC: HO.US 14:48
PROVIDERS: PCP Nurse Practitioner Family; Visit Provider Internal Medicine Medical Oncology
DX: I82.402 Acute embolism and thrombosis of unspecified deep veins of left lower extremity (principal)
CPT/HCPCS: 93970

== ENCOUNTER 2021-02-12 07:49 | Outpatient (REF) | payer BC, SELFPAY ==
[2021-02-12 11:36] LABS: Appearance Urine CLEAR; Color Urine YELLOW; Glucose Urine UA NEG (NEG); Leukocyte Esterase Urine NEG (NEG); Nitrite Urine NEG (NEG); PH 6.5 (5.0-8.0); UACC Culture Trigger NO; Urine Blood NEG (NEG); Urine Ketones NEG (NEG); Urine Protein 1+ MG/DL (NEG-TRACE)
[2021-02-12 13:05] LABS: RBC Urine 0 /HPF (0); Squamous Epithelial Cell Urine 1+ /LPF; WBC Urine 0-2 /HPF (0-4)
[2021-02-12 13:06] LABS: Mucus Urine TRACE /LPF
[2021-02-12 14:27] LABS: Alanine Aminotransferase 13 U/L (0-40); Albumin Level 3.8 g/dL (3.5-5.0); Alkaline Phosphatase 85 U/L (39-117); Anion Gap 16 (12-20); Aspartate Amino Transferase 15 U/L (5-37); Bilirubin Total 0.6 mg/dL (0.0-1.0); Blood Urea Nitrogen 7 mg/dL (9-16); Calcium 9.1 mg/dL (8.4-10.2); Carbon Dioxide 25 mmol/L (22-29); Chloride 101 mmol/L (96-108); Cholesterol 192 mg/dL; Estimated Glomerular Filt Rate > 60; Glucose Fasting 130 mg/dL (60-99); HDL Cholesterol 37 mg/dL; LDL Cholesterol Calculated 128 mg/dl; Potassium 4.3 mmol/L (3.3-5.1); Sodium 138 mmol/L (135-145); Triglycerides 135 mg/dL
[2021-02-12 14:32] LABS: TSH reflex Free T4 3.37 uIU/mL (0.32-4.0)
== END 2021-02-12 07:50 | disposition home or self-care (01) ==
LOC: HO.HMGCLDS 07:49
PROVIDERS: PCP Nurse Practitioner Family; Visit Provider Nurse Practitioner Family
DX: A05.9 Bacterial foodborne intoxication, unspecified (principal)
CPT/HCPCS: 36415; 80053; 80061; 81001; 84443

== ENCOUNTER 2021-02-19 14:23 | Outpatient (REF) | payer BC, SELFPAY ==
[2021-02-19 16:42] LABS: Glucose Fasting 124 mg/dL (60-99)
[2021-02-19 16:49] LABS: Estimated Average Glucose 114 mg/dL; Hemoglobin A1c % 5.6 %
== END 2021-02-19 14:24 | disposition home or self-care (01) ==
LOC: HO.HMGCLDS 14:23
PROVIDERS: PCP Nurse Practitioner Family; Visit Provider Nurse Practitioner Family
DX: R73.01 Impaired fasting glucose (principal)
CPT/HCPCS: 36415; 82947; 83036

== ENCOUNTER → 2021-03-14 13:29 | Outpatient (BNVA) | payer BC, SELFPAY | PROVIDERS: PCP Nurse Practitioner Family; Visit Provider Nurse Practitioner Family ==

== ENCOUNTER → 2021-04-11 13:06 | Outpatient (BNVA) | payer BC, SELFPAY | PROVIDERS: PCP Nurse Practitioner Family; Visit Provider Nurse Practitioner Family ==

== ENCOUNTER → 2021-05-01 14:59 | Outpatient (BNVA) | payer BC, SELFPAY | PROVIDERS: PCP Nurse Practitioner Family; Visit Provider Internal Medicine ==

== ENCOUNTER 2021-05-03 13:22 | Outpatient (REF) | payer BC, SELFPAY ==
--- NOTE | ~2021-05-03 | CT_ITS ---
EXAMINATION: CT LUMBAR SPINE WITHOUT CONTRAST CT PELVIS WITHOUT CONTRAST CLINICAL INFORMATION: Ankylosing hyperostosis. Sacrococcygeal disorders. COMPARISON: Multiple priors, most recent CT abdomen/pelvis dated 01/27/2021. TECHNIQUE: Contiguous axial CT images of the lumbar spine were obtained without contrast. Contiguous axial CT images of the pelvis were obtained without contrast. Sagittal and coronal reformats were provided and reviewed. This CT examination was performed using dose optimization techniques as appropriate, variously including the following: *Automated exposure control *Adjustment of mA and/or kV according to patient size (this includes techniques or standardized protocols for targeted exams where dose is matched to indication/reason for exam; i.e. extremities or head) *Use of iterative reconstruction technique DOSE: 2284 mGy-cm FINDINGS: LUMBAR SPINE: Transitional anatomy with sacralization of the L5 vertebral body. There is Castellvi type IIIb transitional anatomy at the lumbosacral junction. The lumbar lordosis is maintained. No acute fracture or subluxation. No loss of vertebral body height. Multilevel loss of intervertebral disc height with prominent endplate osteophytes. There are left-sided bridging endplate osteophytes at L1 through L4 with right-sided bridging endplate osteophytes at L4 through S1. Multilevel bilateral facet arthropathy. No concerning lytic or blastic osseous lesion. The visualized paraspinal soft tissues are unremarkable. No abnormal soft tissue mass or fluid collection. Small multilevel disc osteophyte complexes causing mild multilevel central canal stenosis as well as [id number] multilevel bilateral neural foraminal stenosis. Evaluation of disc bulges and stenosis limited on CT examination. PELVIS: No intrapelvic mass or fluid collection. The visualized pelvic bowel loops are unremarkable. Unremarkable appendix. No lymphadenopathy. No pelvic wall hernia. Bilateral sacroiliac joint space narrowing with marginal osteophytes. Partial bridging osteophytes at the anterior aspect of the right and left sacroiliac joints. Additional partial osseous bridging across the superior aspect of the right sacroiliac joint. Left hip arthroplasty without evidence of hardware complication. No acute fracture or dislocation. Mild right hip joint space narrowing with small marginal osteophytes. Degenerative cystic change at the anterolateral aspect of the femoral head/neck junction. Findings consistent with chronic avascular necrosis in the right femoral head measuring up to 3.3 cm. No associated cortical collapse. CT/CT lumbar spine wo con IMPRESSION: LUMBAR SPINE: 1. Transitional anatomy with sacralization of the L5 vertebral body. 2. Multilevel degenerative disc disease with left and right bridging endplate osteophytes. Multilevel bilateral facet arthropathy with mild multilevel central canal stenosis as well as [id number] multilevel bilateral neural foraminal stenosis. Evaluation of disc bulges and stenosis limited on CT examination. PELVIS: 1. Mild degenerative arthritis at the right and left sacroiliac joints with partial osseous bridging at the superior aspect of the right sacroiliac joint. Small anterior bridging osteophytes at the bilateral sacroiliac joints. No associated sclerosis or erosion. 2. Chronic avascular necrosis within the right femoral head without associated cortical collapse. Mild right hip osteoarthritis. 3. Left hip arthroplasty without evidence of hardware complication.
--- NOTE | ~2021-05-03 | CT_ITS ---
EXAMINATION: CT LUMBAR SPINE WITHOUT CONTRAST CT PELVIS WITHOUT CONTRAST CLINICAL INFORMATION: Ankylosing hyperostosis. Sacrococcygeal disorders. COMPARISON: Multiple priors, most recent CT abdomen/pelvis dated 01/27/2021. TECHNIQUE: Contiguous axial CT images of the lumbar spine were obtained without contrast. Contiguous axial CT images of the pelvis were obtained without contrast. Sagittal and coronal reformats were provided and reviewed. This CT examination was performed using dose optimization techniques as appropriate, variously including the following: *Automated exposure control *Adjustment of mA and/or kV according to patient size (this includes techniques or standardized protocols for targeted exams where dose is matched to indication/reason for exam; i.e. extremities or head) *Use of iterative reconstruction technique DOSE: 2284 mGy-cm FINDINGS: LUMBAR SPINE: Transitional anatomy with sacralization of the L5 vertebral body. There is Castellvi type IIIb transitional anatomy at the lumbosacral junction. The lumbar lordosis is maintained. No acute fracture or subluxation. No loss of vertebral body height. Multilevel loss of intervertebral disc height with prominent endplate osteophytes. There are left-sided bridging endplate osteophytes at L1 through L4 with right-sided bridging endplate osteophytes at L4 through S1. Multilevel bilateral facet arthropathy. No concerning lytic or blastic osseous lesion. The visualized paraspinal soft tissues are unremarkable. No abnormal soft tissue mass or fluid collection. Small multilevel disc osteophyte complexes causing mild multilevel central canal stenosis as well as [id number] multilevel bilateral neural foraminal stenosis. Evaluation of disc bulges and stenosis limited on CT examination. PELVIS: No intrapelvic mass or fluid collection. The visualized pelvic bowel loops are unremarkable. Unremarkable appendix. No lymphadenopathy. No pelvic wall hernia. Bilateral sacroiliac joint space narrowing with marginal osteophytes. Partial bridging osteophytes at the anterior aspect of the right and left sacroiliac joints. Additional partial osseous bridging across the superior aspect of the right sacroiliac joint. Left hip arthroplasty without evidence of hardware complication. No acute fracture or dislocation. Mild right hip joint space narrowing with small marginal osteophytes. Degenerative cystic change at the anterolateral aspect of the femoral head/neck junction. Findings consistent with chronic avascular necrosis in the right femoral head measuring up to 3.3 cm. No associated cortical collapse. CT/CT pelvis wo con IMPRESSION: LUMBAR SPINE: 1. Transitional anatomy with sacralization of the L5 vertebral body. 2. Multilevel degenerative disc disease with left and right bridging endplate osteophytes. Multilevel bilateral facet arthropathy with mild multilevel central canal stenosis as well as [id number] multilevel bilateral neural foraminal stenosis. Evaluation of disc bulges and stenosis limited on CT examination. PELVIS: 1. Mild degenerative arthritis at the right and left sacroiliac joints with partial osseous bridging at the superior aspect of the right sacroiliac joint. Small anterior bridging osteophytes at the bilateral sacroiliac joints. No associated sclerosis or erosion. 2. Chronic avascular necrosis within the right femoral head without associated cortical collapse. Mild right hip osteoarthritis. 3. Left hip arthroplasty without evidence of hardware complication.
== END 2021-05-03 13:23 | disposition home or self-care (01) ==
LOC: HO.CT 13:22
PROVIDERS: Visit Provider Nurse Practitioner Family
DX: M48.10 Ankylosing hyperostosis [Forestier], site unspecified (principal); M53.3 Sacrococcygeal disorders, not elsewhere classified; M51.36 Other intervertebral disc degeneration, lumbar region; M48.061 Spinal stenosis, lumbar region without neurogenic claudication; M47.816 Spondylosis without myelopathy or radiculopathy, lumbar region; M46.1 Sacroiliitis, not elsewhere classified; M87.9 Osteonecrosis, unspecified; M16.11 Unilateral primary osteoarthritis, right hip; Z96.642 Presence of left artificial hip joint
CPT/HCPCS: 72131; 72192

== ENCOUNTER → 2021-06-05 12:45 | Outpatient (BNVA) | payer BC, SELFPAY | PROVIDERS: PCP Nurse Practitioner Family; Visit Provider Nurse Practitioner Family ==

== ENCOUNTER 2021-06-14 13:17 | Outpatient (REF) | payer BC, SELFPAY ==
--- NOTE | ~2021-06-14 | XR_ITS ---
EXAMINATION: XR PELVIS CLINICAL INFORMATION: Pain COMPARISON: Previous hip x-rays April 2019 TECHNIQUE: AP view of the pelvis. FINDINGS: There is a left hip replacement satisfactory position. No fracture, dislocation or x-ray evidence of loosening. Right hip joint is normal. Bones of the pelvis are normal. Soft tissues are normal. There are degenerative changes visualized lower lumbar spine. XR/XR pelvis 1-2V IMPRESSION: Satisfactory appearance of left hip replacement.
== END 2021-06-14 13:18 | disposition home or self-care (01) ==
LOC: HO.HOSX 13:17
PROVIDERS: Visit Provider Orthopaedic Surgery
DX: M87.051 Idiopathic aseptic necrosis of right femur (principal)
CPT/HCPCS: 72170

== ENCOUNTER 2021-07-19 12:23 | Outpatient (REF) | payer BC, SELFPAY ==
[2021-07-19 14:00] LABS: Alanine Aminotransferase 40 U/L (0-40); Albumin Level 4.1 g/dL (3.5-5.0); Alkaline Phosphatase 88 U/L (39-117); Anion Gap 17 (12-20); Aspartate Amino Transferase 62 U/L (5-37); Bilirubin Total 1.1 mg/dL (0.0-1.0); Blood Urea Nitrogen 10 mg/dL (9-16); Calcium 9.5 mg/dL (8.4-10.2); Carbon Dioxide 24 mmol/L (22-29); Chloride 100 mmol/L (96-108); Cholesterol 213 mg/dL; Estimated Glomerular Filt Rate > 60; Glucose Fasting 120 mg/dL (60-99); HDL Cholesterol 76 mg/dL; LDL Cholesterol Calculated 116 mg/dl; Potassium 3.5 mmol/L (3.3-5.1); Sodium 137 mmol/L (135-145); Total Protein 7.5 g/dL (6.5-8.0); Triglycerides 107 mg/dL
[2021-07-19 14:04] LABS: Appearance Urine HAZY; Color Urine DK YELLOW; Glucose Urine UA NEG (NEG); Leukocyte Esterase Urine NEG (NEG); Nitrite Urine NEG (NEG); PH 6.5 (5.0-8.0); UACC Culture Trigger NO; Urine Blood TRACE (NEG); Urine Ketones 15 MG/DL (NEG); Urine Protein 2+ MG/DL (NEG-TRACE)
[2021-07-19 14:09] LABS: TSH reflex Free T4 2.38 uIU/mL (0.32-4.0)
[2021-07-19 14:21] LABS: Mucus Urine 3+ /LPF; WBC Urine 0 /HPF (0-4)
[2021-07-19 14:22] LABS: Squamous Epithelial Cell Urine TRACE /LPF
== END 2021-07-19 12:24 | disposition home or self-care (01) ==
LOC: HO.HMGCLDS 12:23
PROVIDERS: PCP Nurse Practitioner Family; Visit Provider Nurse Practitioner Family
DX: I10 Essential (primary) hypertension (principal)
CPT/HCPCS: 36415; 80053; 80061; 81001; 81003; 84443

== ENCOUNTER 2021-07-23 11:44 | Outpatient (REF) | payer BC, SELFPAY ==
[2021-07-23 13:43] LABS: Urine Cytology See Pathology rpt
[2021-07-23 14:05] LABS: Appearance Urine CLOUDY; Color Urine YELLOW; Glucose Urine UA NEG (NEG); Leukocyte Esterase Urine NEG (NEG); Nitrite Urine NEG (NEG); UACC Culture Trigger NO; Urine Blood NEG (NEG); Urine Ketones 5 MG/DL (NEG); Urine Protein 1+ MG/DL (NEG-TRACE)
[2021-07-23 14:18] LABS: Amorphous Sediment Urine 4+ /LPF; RBC Urine 0 /HPF (0); Squamous Epithelial Cell Urine 1+ /LPF; WBC Urine 0 /HPF (0-4)
[2021-07-23 14:38] LABS: Estimated Average Glucose 114 mg/dL; Hemoglobin A1c % 5.6 %
[2021-07-24 04:49] LABS: HBS Num1 0.06 mIU/mL (0-7.99); HBc Num1 0.22 S/CO (0.00-0.79); Hepatitis B Core Antibody Nonreactive (Nonreactive); ~Hepatitis B Surface Antibody NONREACTIVE (Nonreactive); ~Hepatitis C Antibody Nonreactive (Nonreactive)
[2021-07-24 05:00] LABS: HBsAGNum1 0.18 S/CO (0.00-0.99); Hepatitis B Surface Antigen Negative (Negative)
[2021-07-25 04:02] LABS: Hepatitis A Antibody IgM 0.24 Index (0-0.79); ~Hepatitis A Antibody IgM Nonreactive (Nonreactive)
== END 2021-07-23 11:45 | disposition home or self-care (01) ==
LOC: HO.HMGCLDS 11:44
PROVIDERS: PCP Nurse Practitioner Family; Visit Provider Nurse Practitioner Family
DX: R74.8 Abnormal levels of other serum enzymes (principal); R73.01 Impaired fasting glucose; R31.29 Other microscopic hematuria
CPT/HCPCS: 36415; 81001; 83036; 86704; 86706; 86709; 86803; 87086; 87340; 88112

== ENCOUNTER 2021-08-15 11:18 | Outpatient (REF) | payer BC, SELFPAY ==
--- NOTE | ~2021-08-15 | US_ITS ---
EXAMINATION: US ABDOMEN COMPLETE CLINICAL INFORMATION: Abnormal liver enzymes. COMPARISON: CT abdomen and pelvis 01/27/2021. Renal ultrasound 07/26/2019. TECHNIQUE: Real-time imaging of the abdominal viscera. Technically suboptimal study secondary to bowel gas and body habitus. FINDINGS: PANCREAS: The head and the body of the pancreas are homogeneous in echotexture. The tail is obscured by overlying gas. ABDOMINAL AORTA: Visualized proximal mid abdominal aorta is of normal caliber. The distal segment not seen. INFERIOR VENA CAVA: Visualized portions are normal. LIVER: The liver is normal in size. The liver contour is normal. Is diffuse increased echogenicity No focal hepatic lesion. There is no intrahepatic biliary duct dilatation seen. GALLBLADDER: Gallbladder wall thickness is 0.267 cm. The gallbladder is physiologically distended without evidence of stones, sludge, polyps, wall thickening or pericholecystic fluid. A small fold is visualized in the gallbladder. COMMON BILE DUCT: Normal in caliber measuring 0.22 cm in diameter. RIGHT KIDNEY: There is an anechoic cyst in the midpole measuring 4.5 x 3.9 x 4.4 cm. No hydronephrosis or renal calculi. The kidney measures 13.0 cm in maximum dimension. LEFT KIDNEY: There is an anechoic cyst in the lower pole measuring 2.0 x 1.5 x 1.9 cm. No hydronephrosis or renal calculi. The kidney measures 14.3 cm in maximum dimension. SPLEEN: Normal. The spleen measures 12.5 cm in maximum dimension. FREE FLUID: None. US/US abdomen complete IMPRESSION: 1. Diffuse hepatic steatosis without focal lesion seen. 2. Bilateral renal cysts. There are no echogenic stones or hydronephrosis seen.
== END 2021-08-15 11:19 | disposition home or self-care (01) ==
LOC: HO.HMGCX 11:18
PROVIDERS: Visit Provider Nurse Practitioner Family
DX: R74.8 Abnormal levels of other serum enzymes (principal)
CPT/HCPCS: 76700

== ENCOUNTER → 2021-10-25 11:14 | Outpatient (BNVA) | payer BC, SELFPAY | PROVIDERS: PCP Nurse Practitioner Family; Visit Provider Urology | DX: Z13.89 Encounter for screening for other disorder (principal) ==

== ENCOUNTER → 2022-02-05 13:41 | Outpatient (BNVA) | payer BC, SELFPAY | PROVIDERS: PCP Nurse Practitioner Family; Visit Provider Urology | DX: N32.0 Bladder-neck obstruction (principal); R35.1 Nocturia | CPT/HCPCS: 52000 ==

== ENCOUNTER 2022-03-21 08:57 | Outpatient (REF) | payer BC, SELFPAY ==
[2022-03-21 11:21] LABS: Appearance Urine Clear; Color Urine Dark Yellow; Glucose Urine UA Negative (Negative); Leukocyte Esterase Urine Negative (Negative); Nitrite Urine Negative (Negative); PH 5.5 (5.0-9.0); Specific Gravity - Urine 1.015 (1.005-1.025); UMIC TRIGGER UACC YES; Urine Blood Negative (Negative); Urine Ketones Trace mg/dL (Negative); Urine Protein 30 (1+) mg/dL (Neg-Trace)
[2022-03-21 11:31] LABS: Bacteria Urine None Seen (None Seen); Hyaline Casts Urine 0-2 /LPF (0-2); Squamous Epithelial Cell Urine 0-2 /HPF (0-2); WBC Urine 0-5 /HPF (0-5)
[2022-03-21 11:34] LABS: Alanine Aminotransferase 14 U/L (0-40); Alkaline Phosphatase 83 U/L (39-117); Anion Gap 14 (12-20); Aspartate Amino Transferase 15 U/L (5-37); Bilirubin Total 0.7 mg/dL (0.0-1.0); Blood Urea Nitrogen 9 mg/dL (9-16); Calcium 8.9 mg/dL (8.4-10.2); Carbon Dioxide 24 mmol/L (22-29); Chloride 103 mmol/L (96-108); Cholesterol 196 mg/dL; Estimated Glomerular Filt Rate > 60; Glucose Fasting 118 mg/dL (60-99); HDL Cholesterol 41 mg/dL; LDL Cholesterol Calculated 136 mg/dl; Potassium 4.2 mmol/L (3.3-5.1); Sodium 137 mmol/L (135-145); Total Protein 7.3 g/dL (6.5-8.0); Triglycerides 99 mg/dL
[2022-03-21 12:08] LABS: Folate > 20.0 ng/mL (> or = 4.0); Vitamin B12 1441 pg/mL (200-900)
== END 2022-03-21 08:58 | disposition home or self-care (01) ==
LOC: HO.HMGCLDS 08:57
PROVIDERS: PCP Nurse Practitioner Family; Visit Provider Nurse Practitioner Family
DX: I10 Essential (primary) hypertension (principal); E53.8 Deficiency of other specified B group vitamins
CPT/HCPCS: 36415; 80053; 80061; 81001; 82607; 82746; 84443

== ENCOUNTER → 2022-05-22 13:24 | Outpatient (BNVA) | payer BC, SELFPAY | PROVIDERS: PCP Nurse Practitioner Family; Visit Provider Anesthesiology | DX: M53.3 Sacrococcygeal disorders, not elsewhere classified (principal) ==

== ENCOUNTER 2022-06-25 06:20 | Outpatient (REF) | payer BC, SELFPAY ==
--- NOTE | ~2022-06-25 | FL_ITS ---
EXAMINATION: XR FLUOROSCOPY WITH IMAGES CLINICAL INFORMATION: Sacrococcygeal disorders COMPARISON: None. TECHNIQUE: Fluoroscopy Supervised By: Nusrat. Fluoroscopy Time: 0.3. Cumulative Dose: 24.5 mGy. DAP: 6.68 Gycm2. Images: 2. FINDINGS: 2 digital images were obtained with needle positioned at the SI joint and contrast opacifying the joint space and the adjacent soft tissues. FL/FL guidance in treatment room IMPRESSION: Fluoroscopy guidance was provided to referring physician for pain management.
== END 2022-06-25 06:21 | disposition home or self-care (01) ==
LOC: CF 06:20
PROVIDERS: Visit Provider Anesthesiology
DX: M53.3 Sacrococcygeal disorders, not elsewhere classified (principal); M46.1 Sacroiliitis, not elsewhere classified
CPT/HCPCS: 27096

== ENCOUNTER → 2022-07-01 10:36 | Outpatient (BNVA) | payer BC, SELFPAY | PROVIDERS: PCP Nurse Practitioner Family; Visit Provider Anesthesiology | DX: Z13.89 Encounter for screening for other disorder (principal) ==

== ENCOUNTER → 2022-08-09 13:38 | Outpatient (BNVA) | payer BC, SELFPAY | PROVIDERS: PCP Nurse Practitioner Family; Visit Provider Urology | DX: N32.81 Overactive bladder (principal) | CPT/HCPCS: 51798 ==

== ENCOUNTER → 2022-10-16 08:49 | Outpatient (BNVA) | payer BC, SELFPAY | PROVIDERS: PCP Nurse Practitioner Family; Visit Provider Urology ==

== ENCOUNTER → 2022-10-29 13:54 | Outpatient (BNVA) | payer BC, SELFPAY | PROVIDERS: PCP Nurse Practitioner Family; Visit Provider Internal Medicine ==

== ENCOUNTER 2023-04-29 14:52 | Outpatient (AMB) | payer BC, SELFPAY ==
[2023-04-29 14:53] VITALS: BP 132/78; PULSE 78; O2SAT 98; BMI 43.4
--- NOTE | 2023-04-29 14:53 | MHC.OFFVIS ---
Intake Vital Signs 04/29/23 14:53 Height 6 ft 3 in Weight 347 lb BMI 43.4 BP 132/78 Blood Pressure Location Lt brachial Position Sitting Pulse 78 Pulse Source Pulse Oximeter Pulse Oximetry (%) 98 Oxygen Delivery Method Room Air Intake Visit Reasons: Shortness of breath Intake Note: pt is here for follow up and states he is getting a little bit better with his breathing. Card Dealer Required: No Allergies pravastatin [PRAVASTATIN] Allergy (Intermediate, Verified 04/29/23 15:13) RASH clonidine Allergy (Unknown, Verified 04/29/23 15:13) facial rash lisinopril Allergy (Unknown, Verified 04/29/23 15:13) achy, back pain, achy labetalol Adverse Reaction (Unknown, Verified 04/29/23 15:13) achy Seasonal Allergy (Unknown, Uncoded 04/29/23 15:13) unknown Medication List - Last Reconciled 04/29/23 by Rafia Thomson MD albuterol sulfate 90 mcg/actuation 2 puffs inhalation Q6H PRN amlodipine 10 mg PO DAILY 90 days cyanocobalamin (vitamin B-12) 1 tab PO Q OTHER DAY folic acid 1 tab PO DAILY irbesartan 300 mg PO DAILY polyethylene glycol 3350 (Miralax) 238 grams PO ONCE 1 day tadalafil 5 mg PO DAILY 90 days Do you need a note to return to daycare/school/sports/work: No HPI Shortness of breath HPI Details This 62 years old gentleman a case of morbid obesity, Complains of shortness of breath on walking and also has history of obstructive sleep apnea. He is not in favor of using any CPAP, He gets short of breath on walking especially going up hill or climbing stairs. Anyway he does not walk much, and his walking is slow, and not enough to cause any shortness of breath. He has had no bouts of wheezing or cough. He does have albuterol inhaler on hand but has hardly used. He declines to use any maintenance inhaler. Compared to last time he does feel better as he has lost about 7-8 lb of weight. [facility] Medical History Carotid stenosis Food poisoning Salmonella COPD (chronic obstructive pulmonary disease) RACHELE (obstructive sleep apnea) Obesity (BMI 35.0-39.9 without comorbidity) Constipation Encounter for screening colonoscopy Spinal stenosis, lumbar SSS (sick sinus syndrome) Atrial flutter DVT (deep venous thrombosis) Aortic root dilatation Sleep apnea Dorsalgia PVD (peripheral vascular disease) HTN (hypertension) Surgical History Hx of cardiac pacemaker History of inguinal hernia repair History of hip replacement Family History Father Heart problem Pacemaker Colon cancer Mother No problems noted. Maternal Grandmother Cancer Maternal Grandfather Arthritis Brother No problems noted. Daughter No problems noted. Daughter No problems noted. Social History Household Members: Spouse Household Members Other:: cats Housing: House Are you a primary aged or disabled care worker to a significant other at home: No Do you presently have visiting nurse or other home services: No Alcohol intake: current Alcohol intake frequency: a few times a week Alcohol type: beer, wine and hard liquor Patient Tobacco Use Status: Former Tobacco user Quit Date: 1998 Tobacco use type: Cigar e-Cigarette/Vaping Use: Never Used Second Hand Smoke Exposure: Yes service: No Current occupational status: unemployed and disabled Cognitive needs: No Hearing needs: No Vision needs: No Review of Systems Const All systems reviewed & are unremarkable except as noted in HPI and below Eyes Reports no additional complaints ENT Reports no additional complaints Card Denies chest pain, Denies irregular heart rhythm and Denies leg edema Resp Reports as per HPI GI Reports no additional complaints Reports no additional complaints Musc Reports back pain (mild) Skin/Breast Reports system reviewed and no additional complaints, except as documented Neuro Reports no additional complaints Psych Reports no additional complaints Physical Exam He is grossly obese with a round face and very fat neck. Const General: comfortable, no acute distress, alert and awake Orientation/consciousness: patient oriented x3 HEENT Head: Yes normal to inspection General nose exam: No nasal polyps present and No nasal discharge present Face and sinus: Yes sinuses nontender Mouth: oropharynx abnormals (Oropharynx is crowded with Mallampati class 3) Throat: Yes posterior oropharynx normal Eyes General: appearance normal, both eyes and all related structures Neck Neck: Yes normal visual inspection, Yes no lymphadenopathy, Yes trachea midline and Yes no JVD Thyroid: Thyroid normal Chest Chest palpation & inspection: normal inspection of the chest, normal palpation of entire chest wall and no tenderness Resp Other: Percussion note is resonant, has good breath sounds on both sides but diminished over the basilar areas No wheezes or rhonchi are heard Cardio Palpation: normal PMI Rate: regular rate Rhythm: regular rhythm Heart sounds: no gallops and no murmurs Peripheral pulses: Peripheral pulses 2+ throughout GI Palpation (GI): Soft to palpation, nontender, No hepatosplenomegaly present, no masses and Other GI palpation findings present (Abdomen is obese and protuberant) Auscultation: normal bowel sounds Back/Spine/Pelvis Thoracic/Lumbar Spine: thoracic and lumbar spine normal to inspection and thoraco-lumbar ROM limited Skin General skin exam: no rashes or lesions noted and dry skin (over the legs) Neuro General: patient oriented x3 and no focal motor deficits Cranial nerves: Yes CN's II-XII intact bilaterally Extrem General: Yes normal to inspection, Yes no clubbing, cyanosis or edema, Yes no calf tenderness and Yes venous stasis dermatitis Psych Appearance: grossly normal and well kempt Speech and movement: Normal speech and movement present Assessment & Plan Assessment & Plan (1) Obesity (BMI 35.0-39.9 without comorbidity): Comment: HE IS A CASE OF MORBID OBESITY, HAS LOST SOME WEIGHT SINCE HIS LAST VISIT AND CLAIMS TO BE FEELING BETTER. HE IS NOT IN ANY WEIGHT MANAGEMENT PROGRAM AND DOES NOT WANT TO JOIN ANY PROGRAM . HE IS TRYING TO LIMIT HIS DIET. CANNOT DO ANY EXERCISE. Code(s): E66.9 - Obesity, unspecified Plan: WE HAD A GOOD CONVERSATION ABOUT NEED TO LOSE WEIGHT. TALKED ABOUT CALORIES, REDUCTION ESPECIALLY BY REDUCING THE INTAKE OF CARBS. HE IS NOT ABLE TO DO MUCH WALKING OR ANY EXERCISES. (2) RACHELE (obstructive sleep apnea): Comment: HISTORY IS POSITIVE FOR OBSTRUCTIVE SLEEP APNEA BUT HE COULD NOT TOLERATE THE CPAP. HE IS SYMPTOM FREE AND CLAIMS THAT HE IS SLEEPING OKAY. STILL ADVISED THAT HE SHOULD TRY TO LOSE WEIGHT, MUCH POSSIBLE Code(s): G47.33 - Obstructive sleep apnea (adult) (pediatric) Plan: STRESSED THAT HE SHOULD KEEP ON LOSING WEIGHT EVEN A FEW LB PER MONTH. HE SHOULD ALSO TRY TO SLEEP IN LATERAL POSITION. (3) COPD (chronic obstructive pulmonary disease): Comment: [id number] PER previous PFT. HE DOES NOT WANT TO USE ANY MAINTENANCE REGIMEN. HE SAYS THAT HE DOES HAVE PROAIR ON HAND AND WILL USE IT ONLY NEEDED. Code(s): J44.9 - Chronic obstructive pulmonary disease, unspecified Plan: OK TO USE PROAIR 1 OR 2 PUFFS Q 6 HOURS P.R.N. IF HE HAS ACUTE WHEEZING OR SHORTNESS OF BREATH. (4) SOB (shortness of breath): Comment: DYSPNEA ON EXERTION, MOST LIKELY SECONDARY TO RESTRICTIVE PULMONARY DISORDER, RESULT OF GROSS OBESITY. HE MAY HAVE SOME DEGREE OF OBSTRUCTIVE LUNG DISORDER DUE TO PREVIOUS SMOKING, CLAIMS THAT HE IS BETTER HE HAS LOST SOME WEIGHT. Has follow-up 04/25/2022 Code(s): R06.02 - Shortness of breath Plan: ADVISED THAT IF HE LOSES MORE WEIGHT HIS SHORTNESS OF BREATH WILL DECREASE. HE SHOULD ALSO TRY TO DO DEEP BREATHING EXERCISES 2 OR 3 TIMES A DAY. Coding Level of Care Code Est Pt Level 3 (77210) Diagnoses Obesity (BMI 35.0-39.9 without comorbidity) E66.9 RACHELE (obstructive sleep apnea) G47.33 COPD (chronic obstructive pulmonary disease) J44.9 SOB (shortness of breath) R06.02
== END 2023-04-29 15:14 | disposition home or self-care (01) ==
PROVIDERS: PCP Nurse Practitioner Family; Visit Provider Internal Medicine
DX: E66.9 Obesity, unspecified (principal); G47.33 Obstructive sleep apnea (adult) (pediatric); J44.9 Chronic obstructive pulmonary disease, unspecified; R06.02 Shortness of breath
CPT/HCPCS: 99213

== ENCOUNTER → 2023-04-29 14:52 | Outpatient (BNVA) | payer BC, SELFPAY | PROVIDERS: PCP Nurse Practitioner Family; Visit Provider Internal Medicine ==

== ENCOUNTER 2023-10-28 13:51 | Outpatient (AMB) | payer BC, SELFPAY ==
--- NOTE | 2023-10-28 14:07 | A.OFFVIS_ITS ---
Vital Signs 10/28/23 14:08 Height 6 ft 3 in Weight 349 lb 6.923 oz BMI 43.7 BP 130/80 Blood Pressure Location Lt brachial Position Sitting Pulse 64 Pulse Source Pulse Oximeter Pulse Oximetry (%) 97 Oxygen Delivery Method Room Air Intake Visit Reasons: Shortness of breath Intake Note: pt is here for follow up and states he feels not too bad, out of breath with walking, he sleeps well. Nail Puller Required: No Allergies pravastatin [PRAVASTATIN] Allergy (Intermediate, Verified 10/28/23 14:35) RASH clonidine Allergy (Unknown, Verified 10/28/23 14:35) facial rash lisinopril Allergy (Unknown, Verified 10/28/23 14:35) achy, back pain, achy labetalol Adverse Reaction (Unknown, Verified 10/28/23 14:35) achy Seasonal Allergy (Unknown, Uncoded 10/28/23 14:35) unknown Medication List - Last Reconciled 10/28/23 by Rafia Thomson MD albuterol sulfate 90 mcg/actuation 2 puffs inhalation Q6H PRN amlodipine 10 mg PO DAILY 90 days cyanocobalamin (vitamin B-12) 1 tab PO Q OTHER DAY folic acid 1 tab PO DAILY irbesartan 300 mg PO DAILY polyethylene glycol 3350 (Miralax) 238 grams PO ONCE 1 day tadalafil 5 mg PO DAILY 90 days Do you need a note to return to daycare/school/sports/work: No HPI HPI Shortness of breath: Details: 63 YEARS OLD GENTLEMAN IS MORBIDLY OBESE, HE SNORES HEAVY BUT DOES NOT HAVE OBSTRUCTIVE SLEEP APNEA, AND DOES NOT WANT TO BE WORKED UP FOR SLEEP APNEA. HE HAS MILD DEGREE OF THE OBSTRUCTIVE LUNG DISORDER. DOES HAVE ALBUTEROL HFA ON HAND BUT HARDLY USES IT. HE HAS NOT ON ANY LONG-ACTING BRONCHODILATORS. HE DOES NOT SMOKE. HE GETS SHORT OF BREATH ON WALKING FAST OR CLIMBING STAIRS, BUT DENIES HAVING ANY WHEEZING ATTACKS. HIS SHORTNESS OF BREATH ON EXERTION HAS BEEN CONSIDERED TO BE DUE TO RESTRICTIVE LUNG DISORDER, AND POSSIBLE MILD BRONCHIAL ASTHMA, PATIENT IS RETIRED AND STAYS MOSTLY IN THE HOUSE. HE DOES NOT WANT TO JOIN ANY PROFESSIONAL WEIGHT MANAGEMENT PROGRAM. SO HAS NOT BEEN ABLE TO LOSE MUCH WEIGHT. [facility] Medical History Carotid stenosis Food poisoning Salmonella COPD (chronic obstructive pulmonary disease) RACHELE (obstructive sleep apnea) Obesity (BMI 35.0-39.9 without comorbidity) Constipation Encounter for screening colonoscopy Spinal stenosis, lumbar SSS (sick sinus syndrome) Atrial flutter DVT (deep venous thrombosis) Aortic root dilatation Sleep apnea Dorsalgia PVD (peripheral vascular disease) HTN (hypertension) Surgical History Hx of cardiac pacemaker History of inguinal hernia repair History of hip replacement Family History Father Heart problem Pacemaker Colon cancer Mother No problems noted. Maternal Grandmother Cancer Maternal Grandfather Arthritis Brother No problems noted. Daughter No problems noted. Daughter No problems noted. Social History Household Members: Spouse Household Members Other:: cats Housing: House Are you a primary health care facility administrator to a significant other at home: No Do you presently have visiting nurse or other home services: No Alcohol intake: current Alcohol intake frequency: a few times a week Alcohol type: beer, wine and hard liquor Patient Tobacco Use Status: Former Tobacco user Tobacco use type: Cigar e-Cigarette/Vaping Use: Never Used Second Hand Smoke Exposure: Yes service: No Current occupational status: unemployed and disabled Cognitive needs: No Hearing needs: No Vision needs: No Review of Systems Const All systems reviewed & are unremarkable except as noted in HPI and below Eyes Reports no additional complaints ENT Reports no additional complaints Card Denies chest pain, Denies irregular heart rhythm and Denies leg edema Resp Reports as per HPI GI Reports no additional complaints Reports no additional complaints Musc Reports back pain (mild) Skin/Breast Reports system reviewed and no additional complaints, except as documented Neuro Reports no additional complaints Psych Reports no additional complaints Physical Exam Vital Signs: Last Vital Signs Pulse 64 10/28/23 14:08 BP 130/80 10/28/23 14:08 Pulse Ox 97 10/28/23 14:08 Oxygen Delivery Method Room Air 10/28/23 14:08 BMI result Body Mass Index 43.7 He is grossly obese with a round face and very fat neck. Const General: comfortable, no acute distress, alert and awake Orientation/consciousness: patient oriented x3 HEENT Head: Yes normal to inspection General nose exam: No nasal polyps present and No nasal discharge present Face and sinus: Yes sinuses nontender Mouth: oropharynx abnormals (Oropharynx is crowded with Mallampati class 3) Throat: Yes posterior oropharynx normal Eyes General: appearance normal, both eyes and all related structures Neck Neck: Yes normal visual inspection, Yes no lymphadenopathy, Yes trachea midline and Yes no JVD Thyroid: Thyroid normal Chest Chest palpation & inspection: normal inspection of the chest, normal palpation of entire chest wall and no tenderness Resp Other: Percussion note is resonant, has good breath sounds on both sides but diminished over the basilar areas No wheezes or rhonchi are heard Cardio Palpation: normal PMI Rate: regular rate Rhythm: regular rhythm Heart sounds: no gallops and no murmurs Peripheral pulses: Peripheral pulses 2+ throughout GI Palpation (GI): Soft to palpation, nontender, No hepatosplenomegaly present, no masses and Other GI palpation findings present (Abdomen is obese and protuberant) Auscultation: normal bowel sounds Back/Spine/Pelvis Thoracic/Lumbar Spine: thoracic and lumbar spine normal to inspection and thoraco-lumbar ROM limited Skin General skin exam: no rashes or lesions noted and dry skin (over the legs) Neuro General: patient oriented x3 and no focal motor deficits Cranial nerves: Yes CN's II-XII intact bilaterally Extrem General: Yes normal to inspection, Yes no clubbing, cyanosis or edema, Yes no calf tenderness and Yes venous stasis dermatitis Psych Appearance: grossly normal and well kempt Speech and movement: Normal speech and movement present Assessment & Plan Assessment & Plan (1) Morbid obesity: Comment: He has had morbid obesity, He is trying to lose weight on his own . Advised that he should look into joining the weight management program program, but he does not want to go for any program. He tells me that he is not able to do any exercise or walk much because of his chronic back pain. Code(s): E66.01 - Morbid (severe) obesity due to excess calories Category: Medical Plan: ONCE AGAIN I DISCUSSED WITH HIM ABOUT DIET, AND NEED TO DO SOME DAILY WALKING . HE SHOULD RESTRICT INTAKE OF CARBOHYDRATES AND INCREASE VEGGIES, SALADS, OTHER SOURCES OF FIBER. (2) COPD (chronic obstructive pulmonary disease): Comment: [id number] PER previous PFT. HE DOES NOT WANT TO USE ANY MAINTENANCE REGIMEN. Code(s): J44.9 - Chronic obstructive pulmonary disease, unspecified Category: Medical Plan: HE SAYS THAT HE DOES HAVE PROAIR ON HAND AND WILL USE IT ONLY NEEDED. (3) SOB (shortness of breath): Comment: DYSPNEA ON EXERTION, MOST LIKELY SECONDARY TO RESTRICTIVE PULMONARY DISORDER, RESULT OF GROSS OBESITY. HE MAY HAVE SOME DEGREE OF OBSTRUCTIVE LUNG DISORDER DUE TO PREVIOUS SMOKING, CLAIMS THAT HE IS BETTER HE HAS LOST SOME WEIGHT. Code(s): R06.02 - Shortness of breath Category: Medical Plan: AGAIN EXPLAINED TO HIM THAT HIS SHORTNESS OF BREATH ON WALKING IS DUE TO BEING GROSSLY OVERWEIGHT. HE NEEDS TO LOSE WEIGHT. ALSO ADVISED TO KEEP ON DOING DEEP BREATHING EXERCISES (4) RACHELE (obstructive sleep apnea): Comment: HISTORY IS POSITIVE FOR OBSTRUCTIVE SLEEP APNEA BUT HE COULD NOT TOLERATE THE CPAP. HE IS SYMPTOM FREE AND CLAIMS THAT HE IS SLEEPING OKAY. STILL ADVISED THAT HE SHOULD TRY TO LOSE WEIGHT, MUCH POSSIBLE Code(s): G47.33 - Obstructive sleep apnea (adult) (pediatric) Category: Medical Plan: TRY TO LOSE WEIGHT SLOWLY ALWAYS TRY TO SLEEP IN LATERAL POSITION Coding Level of Care Code Est Pt Level 3 (88884) Diagnoses Morbid obesity E66.01 COPD (chronic obstructive pulmonary disease) J44.9 SOB (shortness of breath) R06.02 RACHELE (obstructive sleep apnea) G47.33
[2023-10-28 14:08] VITALS: BP 130/80; PULSE 64; O2SAT 97; BMI 43.7
== END 2023-10-28 14:33 | disposition home or self-care (01) ==
PROVIDERS: PCP Nurse Practitioner Family; Visit Provider Internal Medicine
DX: E66.01 Morbid (severe) obesity due to excess calories (principal); J44.9 Chronic obstructive pulmonary disease, unspecified; R06.02 Shortness of breath; G47.33 Obstructive sleep apnea (adult) (pediatric)
CPT/HCPCS: 99213

== ENCOUNTER → 2023-10-28 13:51 | Outpatient (BNVA) | payer BC, SELFPAY | PROVIDERS: PCP Nurse Practitioner Family; Visit Provider Internal Medicine ==

== ENCOUNTER 2024-04-28 13:42 | Outpatient (AMB) | payer BC, SELFPAY ==
--- NOTE | 2024-04-28 14:02 | A.OFFVIS_ITS ---
Vital Signs 04/28/24 14:03 Height 6 ft 3 in Weight 358 lb BMI 44.7 BP 140/90 H Blood Pressure Location Lt brachial Position Sitting Pulse 66 Pulse Source Pulse Oximeter Pulse Oximetry (%) 96 Oxygen Delivery Method Room Air Intake Visit Reasons: Shortness of breath Intake Note: pt is here for follow up and states he does still get short of breathing, he is in pain when walking which affects his breathing, he also states showering bothers him. Pattern Chain Builder Required: No Allergies pravastatin [PRAVASTATIN] Allergy (Intermediate, Verified 04/28/24 14:23) RASH clonidine Allergy (Unknown, Verified 04/28/24 14:23) facial rash lisinopril Allergy (Unknown, Verified 04/28/24 14:23) achy, back pain, achy labetalol Adverse Reaction (Unknown, Verified 04/28/24 14:23) achy Seasonal Allergy (Unknown, Uncoded 04/28/24 14:23) unknown Medication List - Last Reconciled 04/28/24 by Rafia Thomson MD albuterol sulfate 90 mcg/actuation 2 puffs inhalation Q6H PRN amlodipine 10 mg PO DAILY 90 days cyanocobalamin (vitamin B-12) 1 tab PO Q OTHER DAY folic acid 1 tab PO DAILY irbesartan 300 mg PO DAILY polyethylene glycol 3350 (Miralax) 238 grams PO ONCE 1 day tadalafil 5 mg PO DAILY 90 days Do you need a note to return to daycare/school/sports/work: No HPI HPI Shortness of breath: Details: THIS 63 YEARS OLD GENTLEMAN IS MORBIDLY OBESE. PAST HISTORY IS CONSISTENT WITH MILD OBSTRUCTIVE SLEEP APNEA, BUT HE ALWAYS CLAIMS THAT HE SLEEPS OKAY. HE IS NOW RETIRED AND STAYS HOME SO HAS PUT ON SOME WEIGHT INSTEAD OF LOSING WEIGHT. HE HAS SHORTNESS OF BREATH WHEN HE WALKS OUTDOORS OR CLIMBS STAIRS. HE DOES HAVE ALBUTEROL AT HOME BUT HAS NOT NEEDED TO USE IT. HIS PULMONARY FUNCTION TEST BACK IN 2020 HAD SHOWN MODERATE DEGREE RESTRICTIVE DISORDER, WITH MILD RESPONSE TO BRONCHODILATOR THERAPY, HE IS AWARE OF THE FACT THAT HE GETS SHORT OF BREATH ON WALKING BECAUSE OF HIS WEIGHT. [facility] Medical History (Updated 04/28/24 @ 15:32 by Rafia Thomson MD) Restrictive lung disease Carotid stenosis Food poisoning Salmonella COPD (chronic obstructive pulmonary disease) RACHELE (obstructive sleep apnea) Obesity (BMI 35.0-39.9 without comorbidity) Constipation Encounter for screening colonoscopy Spinal stenosis, lumbar SSS (sick sinus syndrome) Atrial flutter DVT (deep venous thrombosis) Aortic root dilatation Sleep apnea Dorsalgia PVD (peripheral vascular disease) HTN (hypertension) Surgical History Hx of cardiac pacemaker History of inguinal hernia repair History of hip replacement Family History Father Heart problem Pacemaker Colon cancer Mother No problems noted. Maternal Grandmother Cancer Maternal Grandfather Arthritis Brother No problems noted. Daughter No problems noted. Daughter No problems noted. Social History Household Members: Spouse Household Members Other:: cats Housing: House Are you a primary health care coordinator to a significant other at home: No Do you presently have visiting nurse or other home services: No Alcohol intake: current Alcohol intake frequency: a few times a week Alcohol type: beer, wine and hard liquor Patient Tobacco Use Status: Former Tobacco user Tobacco use type: Cigar e-Cigarette/Vaping Use: Never Used Second Hand Smoke Exposure: Yes service: No Current occupational status: unemployed and disabled Cognitive needs: No Hearing needs: No Vision needs: No Review of Systems Const All systems reviewed & are unremarkable except as noted in HPI and below Eyes Reports no additional complaints ENT Reports no additional complaints Card Denies chest pain, Denies irregular heart rhythm and Denies leg edema Resp Reports as per HPI GI Reports no additional complaints Reports no additional complaints Musc Reports back pain (mild) Skin/Breast Reports system reviewed and no additional complaints, except as documented Neuro Reports no additional complaints Psych Reports no additional complaints Physical Exam Vital Signs: Last Vital Signs Pulse 66 04/28/24 14:03 BP 140/90 H 04/28/24 14:03 Pulse Ox 96 04/28/24 14:03 Oxygen Delivery Method Room Air 04/28/24 14:03 BMI result Body Mass Index 44.7 He is grossly obese with a round face and very fat neck. Const General: comfortable, no acute distress, alert and awake Orientation/consciousness: patient oriented x3 HEENT Head: Yes normal to inspection General nose exam: No nasal polyps present and No nasal discharge present Face and sinus: Yes sinuses nontender Mouth: oropharynx abnormals (Oropharynx is crowded with Mallampati class 3) Throat: Yes posterior oropharynx normal Eyes General: appearance normal, both eyes and all related structures Neck Neck: Yes normal visual inspection, Yes no lymphadenopathy, Yes trachea midline and Yes no JVD Thyroid: Thyroid normal Chest Chest palpation & inspection: normal inspection of the chest, normal palpation of entire chest wall and no tenderness Resp Other: Percussion note is resonant, has good breath sounds on both sides but diminished over the basilar areas No wheezes or rhonchi are heard Cardio Palpation: normal PMI Rate: regular rate Rhythm: regular rhythm Heart sounds: no gallops and no murmurs Peripheral pulses: Peripheral pulses 2+ throughout GI Palpation (GI): Soft to palpation, nontender, No hepatosplenomegaly present, no masses and Other GI palpation findings present (Abdomen is obese and protuberant) Auscultation: normal bowel sounds Back/Spine/Pelvis Thoracic/Lumbar Spine: thoracic and lumbar spine normal to inspection and thoraco-lumbar ROM limited Skin General skin exam: no rashes or lesions noted and dry skin (over the legs) Neuro General: patient oriented x3 and no focal motor deficits Cranial nerves: Yes CN's II-XII intact bilaterally Extrem General: Yes normal to inspection, Yes no clubbing, cyanosis or edema, Yes no calf tenderness and Yes venous stasis dermatitis Psych Appearance: grossly normal and well kempt Speech and movement: Normal speech and movement present Office Procedures Spirometry Testing Spirometry Comments: Spirometry done in the office, Dr. Thomson has the results results scanned to his chart. [id number]- Spirometry Results Reviewed Results Reviewed: SPIROMETRY FVC=51 % FEV1=47 % FEVI/FVC= 69 FEF 25-75 = 40 % Assessment & Plan Assessment & Plan (1) Obesity (BMI 35.0-39.9 without comorbidity): Comment: HE IS A CASE OF MORBID OBESITY, HAS NOT LOST ANY WEIGHT SINCE HIS LAST VISIT. HE IS NOT IN ANY WEIGHT MANAGEMENT PROGRAM AND DOES NOT WANT TO JOIN ANY PROGRAM . HE IS TRYING TO LIMIT HIS DIET. CANNOT DO ANY EXERCISE. Code(s): E66.9 - Obesity, unspecified Category: Medical Plan: MADE AWARE OF THE FACT THAT HE HAS GAINED SOME WEIGHT. HE NEEDS TO CUT DOWN THE CALORIES INTAKE, AND THAT IS THE ONLY WAY HE CAN LOSE SOME WEIGHT. HE HAS A POOR LEVEL OF MOTIVATION. (2) RACHELE (obstructive sleep apnea): Comment: HISTORY IS POSITIVE FOR OBSTRUCTIVE SLEEP APNEA BUT HE COULD NOT TOLERATE THE CPAP. HE IS SYMPTOM FREE AND CLAIMS THAT HE IS SLEEPING OKAY. Code(s): G47.33 - Obstructive sleep apnea (adult) (pediatric) Category: Medical Plan: -STILL ADVISED THAT HE SHOULD TRY TO LOSE WEIGHT, MUCH POSSIBLE ONCE AGAIN DISCUSSED IF HE WOULD GO FOR CPAP THERAPY AND HE CATEGORICALLY DECLINES. (3) COPD (chronic obstructive pulmonary disease): Comment: [id number] PER previous PFT. TODAY SPIROMETRY SHOWS THAT THERE IS SOME WORSENING OF THE FLOW VOLUMES. Code(s): J44.9 - Chronic obstructive pulmonary disease, unspecified Category: Medical Plan: DISCUSSED WITH HIM. USUAL HE IS RELUCTANT TO USE ANY MAINTENANCE INHALER. BUT I WAS ABLE TO CONVINCE HIM TO TRY USING FLUTICASONE-SALMETEROL 250-51 INHALATION B.I.D.. AND USE ALBUTEROL HFA 2 PUFFS Q 6 HOURS P.R.N.. (4) Restrictive lung disease: Comment: BECAUSE OF HIS SUPER MORBID OBESITY HE HAS RESTRICTIVE LUNG DISEASE. Code(s): J98.4 - Other disorders of lung Category: Medical Plan: DISCUSSED WITH HIM ABOUT NEED TO LOSE WEIGHT. HE UNDERSTANDS BUT HAS VERY POOR MOTIVATION. Orders: Orders AMB Spirometry Testing Today J98.4 - Other disorders of lung Coding Level of Care Code Est Pt Level 3 (99665) Diagnoses Obesity (BMI 35.0-39.9 without comorbidity) E66.9 RACHELE (obstructive sleep apnea) G47.33 COPD (chronic obstructive pulmonary disease) J44.9 Restrictive lung disease J98.4 CPT Codes Spirometry - CPT: 28359- Spirometry ([id number])
[2024-04-28 14:03] VITALS: BP 140/90; PULSE 66; O2SAT 96; BMI 44.7
== END 2024-04-28 14:54 | disposition home or self-care (01) ==
PROVIDERS: PCP Nurse Practitioner Family; Visit Provider Internal Medicine
DX: E66.9 Obesity, unspecified (principal); G47.33 Obstructive sleep apnea (adult) (pediatric); J44.9 Chronic obstructive pulmonary disease, unspecified; J98.4 Other disorders of lung
CPT/HCPCS: 94010; 99213

== ENCOUNTER → 2024-04-28 13:42 | Outpatient (BNVA) | payer BC, SELFPAY | PROVIDERS: PCP Nurse Practitioner Family; Visit Provider Internal Medicine | DX: J44.9 Chronic obstructive pulmonary disease, unspecified (principal); J98.4 Other disorders of lung; E66.01 Morbid (severe) obesity due to excess calories; G47.33 Obstructive sleep apnea (adult) (pediatric); Z87.891 Personal history of nicotine dependence | CPT/HCPCS: 94010 ==

== ENCOUNTER 2024-05-27 14:35 | Outpatient (AMB) | payer BC, SELFPAY ==
[2024-05-27 14:49] VITALS: BP 150/94; PULSE 77; O2SAT 97; BMI 45.7
--- NOTE | 2024-05-27 14:49 | MHC.OFFVIS ---
Vital Signs 05/27/24 14:49 Height 6 ft 3 in Weight 365 lb 15.477 oz BMI 45.7 BP 150/94 H Blood Pressure Location Lt brachial Position Sitting Pulse 77 Pulse Source Pulse Oximeter Pulse Oximetry (%) 97 Oxygen Delivery Method Room Air Intake Visit Reasons: Shortness of breath Intake Note: pt is here for follow up and started Wixela and does not feel it changed anything, Business Functional Analyst Required: No Allergies pravastatin [PRAVASTATIN] Allergy (Intermediate, Verified 05/27/24 14:57) RASH clonidine Allergy (Unknown, Verified 05/27/24 14:57) facial rash lisinopril Allergy (Unknown, Verified 05/27/24 14:57) achy, back pain, achy labetalol Adverse Reaction (Unknown, Verified 05/27/24 14:57) achy Seasonal Allergy (Unknown, Uncoded 05/27/24 14:57) unknown Medication List - Last Reconciled 05/27/24 by Rafia Thomson MD albuterol sulfate 90 mcg/actuation 2 puffs inhalation Q6H PRN amlodipine 10 mg PO DAILY 90 days cyanocobalamin (vitamin B-12) 1 tab PO Q OTHER DAY fluticasone propion-salmeterol 250-50 mcg/dose 1 inh inhalation BID 30 days folic acid 1 tab PO DAILY irbesartan 300 mg PO DAILY polyethylene glycol 3350 (Miralax) 238 grams PO ONCE 1 day tadalafil 5 mg PO DAILY 90 days Do you need a note to return to daycare/school/sports/work: No HPI HPI Shortness of breath: Details: THIS 63 YEARS OLD GENTLEMAN WITH MORBID OBESITY COMES BACK FOR FOLLOW-UP. CONTINUES TO HAVE SHORTNESS OF BREATH WHEN HE WALKS AROUND ESPECIALLY IF HE WALKS UP [place]. HE HAS ONLY MILD COUGH WHICH IS MOSTLY DRY. HE SMOKES CIGAR ONCE IN A WHILE. HAS USED WIXELA 250-50 1 INHALATION B.I.D. AND HAS NOT NOTICED ANY IMPROVEMENT. HE IS UPSET ABOUT THE CO-PAYMENT . HE IS MORBIDLY OBESE BUT ONCE AGAIN HE REITERATES THAT HE SLEEPS WELL AND DOES NOT WANT TO BE WORKED UP FOR SLEEP APNEA [facility] Medical History Restrictive lung disease Carotid stenosis Food poisoning Salmonella COPD (chronic obstructive pulmonary disease) RACHELE (obstructive sleep apnea) Obesity (BMI 35.0-39.9 without comorbidity) Constipation Encounter for screening colonoscopy Spinal stenosis, lumbar SSS (sick sinus syndrome) Atrial flutter DVT (deep venous thrombosis) Aortic root dilatation Sleep apnea Dorsalgia PVD (peripheral vascular disease) HTN (hypertension) Surgical History Hx of cardiac pacemaker History of inguinal hernia repair History of hip replacement Family History Father Heart problem Pacemaker Colon cancer Mother No problems noted. Maternal Grandmother Cancer Maternal Grandfather Arthritis Brother No problems noted. Daughter No problems noted. Daughter No problems noted. Social History Household Members: Spouse Household Members Other:: cats Housing: House Are you a primary healthcare administration intern to a significant other at home: No Do you presently have visiting nurse or other home services: No Alcohol intake: current Alcohol intake frequency: a few times a week Alcohol type: beer, wine and hard liquor Patient Tobacco Use Status: Former Tobacco user Tobacco use type: Cigar e-Cigarette/Vaping Use: Never Used Second Hand Smoke Exposure: Yes service: No Current occupational status: unemployed and disabled Cognitive needs: No Hearing needs: No Vision needs: No Review of Systems Const All systems reviewed & are unremarkable except as noted in HPI and below Eyes Reports no additional complaints ENT Reports no additional complaints Card Denies chest pain, Denies irregular heart rhythm and Denies leg edema Resp Reports as per HPI GI Reports no additional complaints Reports no additional complaints Musc Reports back pain (mild) Skin/Breast Reports system reviewed and no additional complaints, except as documented Neuro Reports no additional complaints Psych Reports no additional complaints Physical Exam Vital Signs: Last Vital Signs Pulse 77 05/27/24 14:49 BP 150/94 H 05/27/24 14:49 Pulse Ox 97 05/27/24 14:49 Oxygen Delivery Method Room Air 05/27/24 14:49 BMI result Body Mass Index 45.7 He is grossly obese with a round face and very fat neck. Const General: comfortable, no acute distress, alert and awake Orientation/consciousness: patient oriented x3 HEENT Head: Yes normal to inspection General nose exam: No nasal polyps present and No nasal discharge present Face and sinus: Yes sinuses nontender Mouth: oropharynx abnormals (Oropharynx is crowded with Mallampati class 3) Throat: Yes posterior oropharynx normal Eyes General: appearance normal, both eyes and all related structures Neck Neck: Yes normal visual inspection, Yes no lymphadenopathy, Yes trachea midline and Yes no JVD Thyroid: Thyroid normal Chest Chest palpation & inspection: normal inspection of the chest, normal palpation of entire chest wall and no tenderness Resp Other: Percussion note is resonant, has good breath sounds on both sides but diminished over the basilar areas No wheezes or rhonchi are heard Cardio Palpation: normal PMI Rate: regular rate Rhythm: regular rhythm Heart sounds: no gallops and no murmurs Peripheral pulses: Peripheral pulses 2+ throughout GI Palpation (GI): Soft to palpation, nontender, No hepatosplenomegaly present, no masses and Other GI palpation findings present (Abdomen is obese and protuberant) Auscultation: normal bowel sounds Back/Spine/Pelvis Thoracic/Lumbar Spine: thoracic and lumbar spine normal to inspection and thoraco-lumbar ROM limited Skin General skin exam: no rashes or lesions noted and dry skin (over the legs) Neuro General: patient oriented x3 and no focal motor deficits Cranial nerves: Yes CN's II-XII intact bilaterally Extrem General: Yes normal to inspection, Yes no clubbing, cyanosis or edema, Yes no calf tenderness and Yes venous stasis dermatitis Psych Appearance: grossly normal and well kempt Speech and movement: Normal speech and movement present Assessment & Plan Assessment & Plan (1) COPD (chronic obstructive pulmonary disease): Comment: [id number] PER previous PFT. SPIROMETRY ON HIS LAST VISIT SHOWED THAT THERE IS SOME WORSENING OF THE FLOW VOLUMES. HE WAS STARTED ON FLUTICASONE-SALMETEROL 250-51 INHALATION B.I.D.. HE DOES NOT EXPERIENCE ANY IMPROVEMENT WITH THAT. AND THERE IS THE ADDED STRESS OF LARGE CO-PAYMENT. Code(s): J44.9 - Chronic obstructive pulmonary disease, unspecified Category: Medical Plan: I EXPLAINED TO HIM THAT IS COPD IS MILD, MAJOR ISSUE IS RESTRICTIVE LUNG DISEASE DUE TO HIS MORBID OBESITY. HIS SHORTNESS OF BREATH ON EXERTION IS MOSTLY DUE TO RESTRICTIVE LUNG DISEASE AND OBESITY. HE CAN STOP USING WIXELA. JUST USE ALBUTEROL HFA 2 PUFFS Q 4-6 HOURS P.R.N., PRESCRIPTION IS RENEWED. (2) SOB (shortness of breath): Comment: DYSPNEA ON EXERTION, MOST LIKELY SECONDARY TO RESTRICTIVE PULMONARY DISORDER, RESULT OF MORBID OBESITY. HE MAY HAVE SOME DEGREE OF OBSTRUCTIVE LUNG DISORDER DUE TO PREVIOUS SMOKING, Code(s): R06.02 - Shortness of breath Category: Medical Plan: ADVISE THAT HE HAS TO DO EVERYTHING POSSIBLE TO LOSE WEIGHT. IDEAL OPTION IS TO JOIN A. WEIGHT MANAGEMENT PROGRAM DO DEEP BREATHING EXERCISES 2 TO 3 TIMES A DAY. (3) RACHELE (obstructive sleep apnea): Comment: HISTORY IS POSITIVE FOR OBSTRUCTIVE SLEEP APNEA BUT HE COULD NOT TOLERATE THE CPAP. HE CLAIMS TO BE ASYMPTOMATIC FAR SLEEP APNEA IS CONCERNED. Code(s): G47.33 - Obstructive sleep apnea (adult) (pediatric) Category: Medical Plan: STILL ADVISED TO LOSE WEIGHT AND ALSO TRY TO SLEEP IN LATERAL POSITION . (4) Obesity (BMI 35.0-39.9 without comorbidity): Comment: HE IS A CASE OF MORBID OBESITY, HAS NOT LOST ANY WEIGHT SINCE HIS LAST VISIT. HE IS NOT IN ANY WEIGHT MANAGEMENT PROGRAM AND DOES NOT WANT TO JOIN ANY PROGRAM . HE IS TRYING TO LIMIT HIS DIET. CANNOT DO ANY EXERCISE. Code(s): E66.9 - Obesity, unspecified Category: Medical Plan: IT WILL BE DIFFICULT FOR HIM TO LOSE WEIGHT UNLESS HE JOINS AN AGGRESSIVE PROGRAM. FOR THE TIME BEING TRY TO CUT DOWN THE CALORIES INTAKE MUCH POSSIBLE (5) Restrictive lung disease: Comment: BECAUSE OF HIS SUPER MORBID OBESITY HE HAS RESTRICTIVE LUNG DISEASE. Code(s): J98.4 - Other disorders of lung Category: Medical Plan: TRY TO LOSE WEIGHT MUCH POSSIBLE, TRY TO DO DEEP BREATHING EXERCISES AT LEAST 3 TIMES A DAY. Medications: New albuterol sulfate 90 mcg/actuation 2 puffs inhalation Q4-6H 30 days PRN 8.5 grams 4RF shortness of breath or wheezing Coding Level of Care Code Est Pt Level 3 (01922) Diagnoses COPD (chronic obstructive pulmonary disease) J44.9 SOB (shortness of breath) R06.02 RACHELE (obstructive sleep apnea) G47.33 Obesity (BMI 35.0-39.9 without comorbidity) E66.9 Restrictive lung disease J98.4
== END 2024-05-27 15:10 | disposition home or self-care (01) ==
PROVIDERS: PCP Nurse Practitioner Family; Visit Provider Internal Medicine
DX: J44.9 Chronic obstructive pulmonary disease, unspecified (principal); R06.02 Shortness of breath; G47.33 Obstructive sleep apnea (adult) (pediatric); E66.9 Obesity, unspecified; J98.4 Other disorders of lung
CPT/HCPCS: 99213

== ENCOUNTER → 2024-05-27 14:35 | Outpatient (BNVA) | payer BC, SELFPAY | PROVIDERS: PCP Nurse Practitioner Family; Visit Provider Internal Medicine | DX: J98.4 Other disorders of lung (principal) ==

== ENCOUNTER 2024-07-29 08:57 | Outpatient (AMB) | payer BC, SELFPAY ==
[2024-07-29 09:06] VITALS: BP 140/90; PULSE 71; RESP 18; TEMP 36.9; O2SAT 96; BMI 44.4
--- NOTE | 2024-07-29 09:06 | MHC.PC.OV ---
Vital Signs 07/29/24 09:06 07/29/24 09:53 Height 6 ft 3 in Weight 355 lb BMI 44.4 BP 140/90 H 126/80 Blood Pressure Location Rt brachial Lt brachial Position Sitting Sitting Respiration 18 Pulse 71 Pulse Source Pulse Oximeter Temp 98.4 F Temp Source Oral Pulse Oximetry (%) 96 Oxygen Delivery Method Room Air Intake Visit Reasons: Annual PE/Overdue last seen 2021 Intake Note: Pt is here today for his PE Allergies pravastatin [PRAVASTATIN] Allergy (Intermediate, Verified 07/29/24 09:29) RASH clonidine Allergy (Unknown, Verified 07/29/24 09:29) facial rash lisinopril Allergy (Unknown, Verified 07/29/24 09:29) achy, back pain, achy labetalol Adverse Reaction (Unknown, Verified 07/29/24 09:29) achy Seasonal Allergy (Unknown, Uncoded 07/29/24 09:29) unknown Medication List - Last Reconciled 07/29/24 by ANNIE Ramirez No Known Home Meds Tobacco use date assessed: 07/29/24 Fall risk assessment: No Falls in past year Last assessed Fall Risk: 07/29/24 Dental Screening Dental Screen Date: 07/29/24 Did you have a dental visit in the last 12 months?: No Did you have a dental problem in the last 6 months where you did not have access to dental care?: No Was dental information given to patient?: Patient has dentist HPI Annual PE/Overdue last seen 2021 HPI Details History of Present Illness The patient is a 64-year-old male presenting for colonoscopy screening and management of physical symptoms including obesity and neuropathy. Previously referred for colon cancer screening, the referral remains uncompleted. Regular consultations with pulmonology and cardiology are noted with no reports of urinary or recent chest pain issues, although shortness of breath is present. Neuropathy leads to an absent dorsalis pedis pulse bilaterally; an erythematous presence is observed on his feet, along with elongated toenails. For morbid obesity, a referral to a weight management clinic is advised. Additionally, erythema in inguinal folds raises concerns for tinea. Health Maintenance - Colon cancer screening referral for colonoscopy is necessary. - Referral to medical weight management for obesity. - Suggestion for GLP-1 agonist to aid weight management. Social History Review of Systems - Respiratory: Reports shortness of breath. - Cardiovascular: Denies chest pain, denies claudication - Gastrointestinal: Denies blood in stool, constipation, diarrhea. - Genitourinary: Denies urinary issues. -denies any si or hi Physical Exam General: Cooperative, healthy appearing, comfortable, no acute distress and well developed Orientation: Patient oriented x3 Limitations: No limitations Head: Normal to inspection Ears: Hearing grossly normal bilaterally Nose: Normal external nose present Face and sinus: Normal facial exam Eyes: Appearance normal, both eyes and all related structures Neck: Normal visual inspection and Yes full ROM Respiratory: Diminished breath sounds bilaterally Cardiovascular: Regular rate and rhythm. Diminished S1 and S2 GI: Normal to inspection. Soft to palpation and nontender Skin: Erythematous color noted on bilateral extremities, feet very dry, erythema/Tynia noted in inguinal folds Neuro: Patient oriented x3 Extremities: Neuropathy to bilateral extremities, absent dorsalis pedis pulse bilaterally, erythematous color, elongated toenails, good capillary refill Results - Tests: Arterial testing referred for bilateral extremities. Plan Tasks include referring for a colonoscopy to address previous colon cancer screening needs. Neuropathy will require arterial testing. A weight management referral hopes to mitigate obesity, using a GLP-1 agonist if deemed appropriate. Treatment of inguinal erythema involves an antifungal cream, with continual oversight of pulmonary and cardiac health. Discussion Notes I explained the necessity of a colonoscopy referral to the patient due to the past delay in colon cancer screening. The management of morbid obesity will involve referral to a medical weight management facility, with potential inclusion of a GLP-1 agonist. I made the patient aware of their neuropathic condition necessitating arterial examinations. Erythema in the inguinal regions, addressed topically, was discussed as likely due to a fungal infection. Additionally, the importance of ongoing care for pulmonary and cardiac issues was emphasized. Patient Instructions - Schedule a colonoscopy as soon as possible. - Follow up with referred weight management program. - Use prescribed antifungal cream for inguinal area. - Regularly monitor and manage pulmonary and cardiac issues as advised by your specialists. [facility] Medical History Restrictive lung disease Carotid stenosis Food poisoning Salmonella COPD (chronic obstructive pulmonary disease) RACHELE (obstructive sleep apnea) Obesity (BMI 35.0-39.9 without comorbidity) Constipation Encounter for screening colonoscopy Spinal stenosis, lumbar SSS (sick sinus syndrome) Atrial flutter DVT (deep venous thrombosis) Aortic root dilatation Sleep apnea Dorsalgia PVD (peripheral vascular disease) HTN (hypertension) Surgical History Hx of cardiac pacemaker History of inguinal hernia repair History of hip replacement Family History (Updated 07/29/24 @ 09:10 by Angelica Lau CMA) Father Heart problem Pacemaker Colon cancer Mother No problems noted. Maternal Grandmother Cancer Maternal Grandfather Arthritis Brother No problems noted. Daughter No problems noted. Daughter No problems noted. Social History Household Members: Spouse Household Members Other:: cats Housing: House Are you a primary childcare center administrator to a significant other at home: No Do you presently have visiting nurse or other home services: No Alcohol intake: current Alcohol intake frequency: a few times a week Alcohol type: beer, wine and hard liquor Patient Tobacco Use Status: Former Tobacco user Tobacco use type: Cigar e-Cigarette/Vaping Use: Never Used Second Hand Smoke Exposure: Yes service: No Current occupational status: unemployed and disabled Cognitive needs: No Hearing needs: No Vision needs: No Questionnaire PHQ-9 Over the last 2 weeks, how often have you been bothered by any of the following problems? 1. Little interest or pleasure in doing things: not at all 2. Feeling down, depressed, or hopeless: not at all 3. Trouble falling or staying asleep, or sleeping too much: not at all 4. Feeling tired or having little energy: not at all 5. Poor appetite or overeating: not at all 6. Feeling bad about yourself - or that you are a failure or have let yourself or your family down: not at all 7. Trouble concentrating on things, such as reading the newspaper or watching television: not at all 8. Moving or speaking so slowly that other people could have noticed. Or the opposite - being so fidgety or restless that you have been moving around a lot more than usual: not at all 9. Thoughts that you would be better off or of hurting yourself in some way: not at all Total score: 0 Depression Screening Interpretation: Negative Depression Screening Done: Yes 77104 - PHQ-9 Billing: Yes Source: Developed by Lyla Anderson.W. Glenn, Oneal Arango and colleagues, with an educational omar from [employer] Thrive Questionnaire Date Thrive assessed: 07/23/21 I am a: Patient What is your living situation today?: I have a steady place to live Within the past 12 months, did the food you bought not last and you didn't have the money to get more?: Never true Within the past 12 months, did you worry whether your food would run out before you got money to buy more?: Never true Do you have trouble paying for medicines?: No Do you have trouble getting transportation to medical appointments?: No Do you have trouble paying your heating and electricity bill?: No Do you have trouble taking care of your child, family member or friend?: No Do you have trouble with day-to-day activities such as bathing, preparing meals, shopping, managing finances, etc.?: No Are you currently unemployed and looking for a job?: No Are you interested in more education?: No Please select the resources that you would like help with: None Currently or been in a relationship where the following occur: No concerns reported THRIVE Score: 0 AUDIT C Alcohol Use Questionnaire (AUDIT-C) 1. How often do you have a drink containing alcohol?: Never Total Score: 0 Score Reviewed/Action Taken: Yes WOOD-7 AMB Questionnaire WOOD-7 Date WOOD - 7 assessed: 07/23/21 Feeling nervous, anxious, or on edge: 0 = Not at all Not being able to stop or control worryin = Not at all Worrying too much about different things: 0 = Not at all Trouble relaxin = Not at all Being so restless that it is hard to sit still: 0 = Not at all Becoming easily annoyed or irritable: 0 = Not at all Feeling afraid as if something awful might happen: 0 = Not at all Total WOOD-7 score (0-4 normal; 5-9 mild; 10-14 moderate; 15-21 severe): 0 Source: Developed by Drs. Ronny Allen, Lyla Elizabeth, Oneal Arango and colleagues, with an educational omar from [employer] Physical exam (Primary Care) Vital Signs: Last Vital Signs Temp 98.4 F 07/29/24 09:06 Pulse 71 07/29/24 09:06 Resp 18 07/29/24 09:06 BP 140/90 H 07/29/24 09:06 Pulse Ox 96 07/29/24 09:06 Oxygen Delivery Method Room Air 07/29/24 09:06 BMI result Body Mass Index 44.4 Tobacco/Smoking Status: Tobacco use Status Tobacco use date assessed 07/29/24 07/29/24 09:13 Patient Tobacco Use Status Former Tobacco user 07/29/24 09:13 Tobacco use type Cigar 07/29/24 09:13 e-Cigarette/Vaping Use Never Used 07/29/24 09:13 Depression Screening Interpretation: Negative Thrive Assessment: Date of Thrive Assessment Date Thrive assessed 07/23/21 07/29/24 09:13 Currently or been in a relationship where the following occur: No concerns reported Coding Level of Care Code Est Pt Prev Care >65y(42773) Diagnoses Physical exam Z00.00 B12 deficiency E53.8 Screening PSA (prostate specific antigen) Z12.5 Screening for colon cancer Z12.11 Morbid obesity E66.01 PAD (peripheral artery disease) I73.9 Tinea B35.9 Additional Codes PHQ-9 - 65285 - PHQ-9 Billing: Yes ([id number]) Assessment & Plan Assessment & Plan (1) Physical exam: Code(s): Z00.00 - Encounter for general adult medical examination without abnormal findings Category: Medical (2) B12 deficiency: Code(s): E53.8 - Deficiency of other specified B group vitamins Category: Medical (3) Screening PSA (prostate specific antigen): Code(s): Z12.5 - Encounter for screening for malignant neoplasm of prostate Category: Medical (4) Screening for colon cancer: Code(s): Z12.11 - Encounter for screening for malignant neoplasm of colon Category: Medical (5) Morbid obesity: Comment: referring to weight management Code(s): E66.01 - Morbid (severe) obesity due to excess calories Category: Medical (6) PAD (peripheral artery disease): Code(s): I73.9 - Peripheral vascular disease, unspecified Category: Medical Plan: . (7) Tinea: Code(s): B35.9 - Dermatophytosis, unspecified Category: Medical Plan . Orders: Orders Complete Blood Count Auto Diff Today Z00.00 - Encounter for general adult medical examination without abnormal findings Comprehensive Ro[place]. Panel Fast Today Z00.00 - Encounter for general adult medical examination without abnormal findings TSH reflex Free T4 Today Z00.00 - Encounter for general adult medical examination without abnormal findings UA CC w/rflx Micro + Cult Today Z00.00 - Encounter for general adult medical examination without abnormal findings US arterial duplex LE BI Today I73.9 - Peripheral vascular disease, unspecified Lipid Panel Today Z00.00 - Encounter for general adult medical examination without abnormal findings Vitamin B12 and Folate Today E53.8 - Deficiency of other specified B group vitamins Prostate Specific Antigen Scr Today Z12.5 - Encounter for screening for malignant neoplasm of prostate Referrals Gastroenterology Referral Z12.11 - Encounter for screening for malignant neoplasm of colon Medical Weight Management Referral E66.01 - Morbid (severe) obesity due to excess calories Medications: New ammonium lactate 12% 1 appl topical DAILY 280 grams 0RF for feet ketoconazole 2% 1 appl topical DAILY 30 grams 0RF for groin
[2024-07-29 09:53] VITALS: BP 126/80
== END 2024-07-29 09:50 | disposition home or self-care (01) ==
PROVIDERS: PCP Nurse Practitioner Family; Visit Provider Nurse Practitioner Family
DX: Z00.00 Encounter for general adult medical examination without abnormal findings (principal); I73.9 Peripheral vascular disease, unspecified; E66.01 Morbid (severe) obesity due to excess calories; Z68.41 Body mass index [BMI] 40.0-44.9, adult; E53.8 Deficiency of other specified B group vitamins; Z12.5 Encounter for screening for malignant neoplasm of prostate; Z12.11 Encounter for screening for malignant neoplasm of colon; B35.9 Dermatophytosis, unspecified

== ENCOUNTER → 2024-07-29 08:57 | Outpatient (BNVA) | payer BC, SELFPAY | PROVIDERS: PCP Nurse Practitioner Family; Visit Provider Nurse Practitioner Family | DX: Z00.00 Encounter for general adult medical examination without abnormal findings (principal); E53.8 Deficiency of other specified B group vitamins; E66.01 Morbid (severe) obesity due to excess calories; Z68.41 Body mass index [BMI] 40.0-44.9, adult; I73.9 Peripheral vascular disease, unspecified; B35.9 Dermatophytosis, unspecified | CPT/HCPCS: 96127 ==

== ENCOUNTER → 2024-08-05 13:51 | Outpatient (BNVA) | payer BC, SELFPAY | PROVIDERS: PCP Nurse Practitioner Family; Visit Provider Physician Assistant Surgical ==

== ENCOUNTER 2024-08-24 14:34 | Outpatient (REF) | payer BC, SELFPAY ==
--- NOTE | ~2024-08-24 | US_ITS ---
EXAMINATION: Noninvasive assessment of the bilateral lower extremities . CLINICAL INFORMATION: Peripheral vascular disease. TECHNIQUE: Duplex Doppler techniques with waveform analysis and measurement of velocities in the bilateral common femoral, profunda femoris, superficial femoral, popliteal and tibial arteries were performed. Additionally, ankle pulse volume recordings, ankle pressure measurements and ankle brachial indices were obtained of the lower extremity arterial system bilaterally. The study was performed only at rest. COMPARISON: None FINDINGS: DIRECT DUPLEX DOPPLER FINDINGS: RIGHT LEG: Common femoral artery: 134 cm/s, phasicity: Triphasic. Profunda femoris artery: 73 cm/s, phasicity: Triphasic. Superficial femoral artery (proximal): 119 cm/s, phasicity: Triphasic. Superficial femoral artery (mid): 89 cm/s, phasicity: Triphasic. Superficial femoral artery (distal): 86 cm/s, phasicity: Triphasic. Popliteal artery: 86 cm/s, phasicity: Triphasic. Posterior tibial artery: 123 cm/s, phasicity: Triphasic. Peroneal artery: Not interrogated. Anterior tibial artery: Not interrogated. Dorsalis pedis artery: 53 cm/s, phasicity:Monophasic. Spectral broadening LEFT LEG: Common femoral artery: 129 cm/s, phasicity: Triphasic. Profunda femoris artery: 62 cm/s, phasicity: Biphasic. Spectral broadening. Superficial femoral artery (proximal): 109 cm/s, phasicity: Triphasic. Superficial femoral artery (mid): 105 cm/s, phasicity: Triphasic. Superficial femoral artery (distal): 70 cm/s, phasicity: Triphasic. Popliteal artery: 75 cm/s, phasicity: Triphasic. Posterior tibial artery: 78 cm/s, phasicity: Triphasic. Peroneal artery: Not identified. Anterior tibial artery: Not identified. Dorsalis pedis artery: 32 cm/s, phasicity: Triphasic. US/US arterial duplex LE BI IMPRESSION: Right leg: Severe inflow disease, right dorsalis base artery. Left leg: Disease left profunda femoral artery. Electronically signed by: Juma Luna MD 08/25/2024 10:22 AM EDT
[2024-08-24 14:46] LABS: MANUAL DIFF FLAG NO
[2024-08-24 15:21] LABS: Appearance Urine Clear; Color Urine Dark Yellow; Glucose Urine UA Negative (Negative); Leukocyte Esterase Urine Negative (Negative); Nitrite Urine Negative (Negative); PH 5.5 (5.0-9.0); Specific Gravity - Urine 1.025 (1.005-1.025); UMIC TRIGGER UACC YES; Urine Blood Negative (Negative); Urine Ketones Trace mg/dL (Negative); Urine Protein 30 (1+) mg/dL (Neg-Trace)
[2024-08-24 15:29] LABS: Basophils Percent Auto 0.3 % (0-2); Eosinophils Absolute Auto 0.3 X10*3/uL (0.0-0.4); Hematocrit 47.4 % (42.0-52.0); Hemoglobin 15.4 g/dl (14.0-18.0); Imm Gran Abs Auto 0.09 X10*3/uL (0.00-0.03); Imm Gran Pct Auto 0.7 % (0.0-0.4); Lymphocytes Absolute Auto 2.9 X10*3/uL (1.2-4.9); Lymphocytes Percent Auto 23.6 % (20-40); Mean Corpuscular HGB Conc 32.5 g/dl (31.0-36.0); Mean Corpuscular Hemoglobin 30.6 pg (27.0-33.0); Monocytes Absolute Auto 0.7 X10*3/uL (0.1-1.2); Monocytes Percent Auto 5.4 % (2-11); Neutrophils Absolute Auto 8.4 x10*3/uL (2.0-8.3); Platelet Count 273 X10*3/uL (160-400); Red Blood Count 5.04 X10*6/uL (4.60-5.80); Red Cell Distribution Width 12.3 % (11.0-16.0); White Blood Count 12.4 X10*3/uL (4.8-10.8)
[2024-08-24 15:38] LABS: Bacteria Urine None Seen (None Seen); RBC Urine 0-2 /HPF (0-2); Squamous Epithelial Cell Urine 0-2 /HPF (0-2); WBC Urine 0-5 /HPF (0-5)
[2024-08-24 17:43] LABS: Alanine Aminotransferase 10 U/L (0-40); Albumin Level 3.9 g/dL (3.5-5.0); Alkaline Phosphatase 94 U/L (39-117); Anion Gap 14 (12-20); Aspartate Amino Transferase 18 U/L (5-37); Bilirubin Total 0.5 mg/dL (0.0-1.0); Blood Urea Nitrogen 10 mg/dL (9-16); Calcium 9.4 mg/dL (8.4-10.2); Carbon Dioxide 23 mmol/L (22-29); Chloride 105 mmol/L (96-108); Cholesterol 194 mg/dL (<200); Estimated Glomerular Filt Rate > 60; Glucose Fasting 112 mg/dL (60-99); HDL Cholesterol 41 mg/dL (>40); LDL Cholesterol Calculated 131 mg/dL (<100); Potassium 4.2 mmol/L (3.3-5.1); Sodium 138 mmol/L (135-145); TSH reflex Free T4 2.27 uIU/mL (0.32-4.0); Total Protein 7.8 g/dL (6.5-8.0); Triglycerides 110 mg/dL (<150)
[2024-08-24 18:14] LABS: Folate 4.6 ng/mL (> or = 4.0); Prostate Specific Antigen Scr 0.32 ng/mL (<0.05-4.0); Vitamin B12 552 pg/mL (200-900)
== END 2024-08-24 14:35 | disposition home or self-care (01) ==
LOC: HO.US 14:34
PROVIDERS: PCP Nurse Practitioner Family; Visit Provider Nurse Practitioner Family
DX: Z00.00 Encounter for general adult medical examination without abnormal findings (principal); E53.8 Deficiency of other specified B group vitamins; Z12.5 Encounter for screening for malignant neoplasm of prostate; I73.9 Peripheral vascular disease, unspecified
CPT/HCPCS: 36415; 80053; 80061; 81001; 81003; 82607; 82746; 84153; 84443; 85025; 93925

== ENCOUNTER → 2024-08-24 14:52 | Outpatient (BNV) | payer BC, SELFPAY | PROVIDERS: PCP Nurse Practitioner Family; Visit Provider Radiology Diagnostic Radiology | DX: I73.9 Peripheral vascular disease, unspecified (principal) | CPT/HCPCS: 93925 ==

== ENCOUNTER 2024-08-26 14:26 | Outpatient (AMB) | payer BC, SELFPAY ==
--- NOTE | 2024-08-26 14:36 | A.OFFVIS_ITS ---
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 Patient states he has nerve damage in his legs. Had nerve conduction test, had hip replacement in 2006. 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 He has significant difficulty walking, requiring frequent rests due to back pain and shortness of breath. The pain improves with sitting, which allows him short intervals of walking thereafter. He does not experience typical claudication, as he denies cramps in his legs. His mobility issues are compounded by chronic back pain, worsened by a previously diagnosed fused spine, for which surgical intervention was deemed inadvisable. His past smoking history and second-hand smoke exposure from his have been acknowledged. No history of diabetes, although he was previously informed of being borderline diabetic. He now presents for vascular evaluation. [facility] Medical History Restrictive lung disease Carotid stenosis Food poisoning Salmonella COPD (chronic obstructive pulmonary disease) RACHELE (obstructive sleep apnea) Obesity (BMI 35.0-39.9 without comorbidity) Constipation Encounter for screening colonoscopy Spinal stenosis, lumbar SSS (sick sinus syndrome) Atrial flutter DVT (deep venous thrombosis) Aortic root dilatation Sleep apnea Dorsalgia PVD (peripheral vascular disease) HTN (hypertension) Surgical History Hx of cardiac pacemaker History of inguinal hernia repair History of hip replacement Family History Father Heart problem Pacemaker Colon cancer Mother No problems noted. Maternal Grandmother Cancer Maternal Grandfather Arthritis Brother No problems noted. Daughter No problems noted. Daughter No problems noted. Social History Household Members: Spouse Household Members Other:: cats Housing: House Are you a primary home care manager rn to a significant other at home: No Do you presently have visiting nurse or other home services: No Alcohol intake: former Patient Tobacco Use Status: Former Tobacco user Tobacco use type: Cigar e-Cigarette/Vaping Use: Never Used Second Hand Smoke Exposure: Yes service: No Current occupational status: unemployed and disabled Cognitive needs: No Hearing needs: No Vision needs: No Review of Systems Const All systems reviewed & are unremarkable except as noted in HPI and below Reports no additional complaints ENT Reports Normal hearing present Card Denies chest pain, Denies chest pain at rest, Denies chest pain with activity and Denies pedal edema Resp Denies cough GI Denies abdominal pain Musc Denies abnormal gait, Denies muscle cramps and Denies radiating pain into limb Skin/Breast Denies skin ulcer and Denies wounds Neuro Reports Normal hearing present and Denies abnormal gait Psych Reports no additional complaints Physical Exam Const General: cooperative, healthy appearing and comfortable Orientation/consciousness: oriented to person, oriented to place and oriented to time HEENT Head: Yes normal to inspection Neck Neck: Yes normal visual inspection Carotids: no bruits Chest Chest palpation & inspection: normal inspection of the chest Resp Effort & Inspection: normal respiratory effort and able to speak in complete s entences Auscultation: clear to auscultation bilaterally, no crackles, no rales, no rhonchi and no wheezes Cardio Other: Palpable posterior tibial pulses Rate: regular rate Rhythm: regular rhythm Heart sounds: S1 normal heart sound present and S2 normal heart sound present Bruits: no carotid bruits Peripheral pulses: Peripheral pulses 2+ throughout GI Inspection: Yes normal to inspection Skin Wounds: no wounds Hair: normal Neuro General: oriented to person, oriented to place and oriented to time Cranial nerves: Yes CN's II-XII intact bilaterally and Yes Normal hearing present Cognition (Neuro): normal cognition Motor exam (neuro): 5/5 motor strength present throughout Extrem Other: venous exam: No significant superficial varicosities or spider telangiectasias, minimal edema General: No clubbing, No cyanosis and No edema Psych Appearance: grossly normal Mental Status: mental status grossly normal Speech and movement: Normal speech and movement present Results Reviewed Results Reviewed: Noninvasive testing dated 08/24/2024 demonstrates diffuse disease that appears to be all below-knee he does have mostly triphasic flow though. Written report and images were reviewed Assessment & Plan Assessment & Plan (1) PAD (peripheral artery disease): Code(s): I73.9 - Peripheral vascular disease, unspecified Category: Medical Plan: At the current time he does have stable vascular disease. I assessed the patient's peripheral vascular disease, noting some vascular buildup without complete blockage. While blood flow appears adequate in this context, I plan a repeat ultrasound in six months for ongoing surveillance. To address his severe back pain and inability to walk due distances, I am re-referring him to pain management for better management of his chronic condition. It appears that he had seen pain management in the past and had injections with some relief. D espite the lack of surgical options for his back due to poor odds, alternative pain management strategies can be explored to improve his quality of life. His previous smoking habits and current passive exposure require vigilance, but no immediate action is required. He is scheduled for six-month surveillance arterial follow-up. Patient was informed and verbally consented to the use of an ambient scribe for clinic note documentation during this visit. (2) DISH (diffuse idiopathic skeletal hyperostosis): Code(s): M48.10 - Ankylosing hyperostosis [[place]], site unspecified Category: Medical Plan: Refer pain management Orders: Orders US arterial duplex LE BI 6 Months I73.9 - Peripheral vascular disease, unspecified Patient Instructions: - Schedule an appointment with the referred pain management team. - Monitor symptoms and report significant changes or worsening promptly. - Continue avoiding secondhand smoke exposure as much as possible. - Return to the clinic in six months for a follow-up ultrasound and re- evaluation. Coding Level of Care Code New Pt Level 4 (72100) Complex EM visit Add On G2211 Diagnoses PAD (peripheral artery disease) I73.9 DISH (diffuse idiopathic skeletal hyperostosis) M48.10
== END 2024-08-26 15:13 | disposition home or self-care (01) ==
LOC: HO.HVS 14:27
PROVIDERS: PCP Nurse Practitioner Family; Visit Provider Surgery Vascular Surgery
DX: I73.9 Peripheral vascular disease, unspecified (principal); M48.10 Ankylosing hyperostosis [Forestier], site unspecified
CPT/HCPCS: 99204

== ENCOUNTER → 2024-08-26 14:26 | Outpatient (BNVA) | payer BC, SELFPAY | PROVIDERS: PCP Nurse Practitioner Family; Visit Provider Surgery Vascular Surgery ==

== ENCOUNTER 2024-09-09 12:48 | Outpatient (REF) | payer BC, SELFPAY ==
[2024-09-09 16:16] LABS: MANUAL DIFF FLAG NO
[2024-09-09 17:18] LABS: Basophils Absolute Auto 0.1 X10*3/uL (0.0-0.2); Basophils Percent Auto 0.4 % (0-2); Eosinophils Absolute Auto 0.3 X10*3/uL (0.0-0.4); Eosinophils Percent Auto 2.2 % (0-4); Hematocrit 47.1 % (42.0-52.0); Hemoglobin 15.4 g/dl (14.0-18.0); Imm Gran Abs Auto 0.06 X10*3/uL (0.00-0.03); Imm Gran Pct Auto 0.5 % (0.0-0.4); Lymphocytes Absolute Auto 3.5 X10*3/uL (1.2-4.9); Lymphocytes Percent Auto 29.3 % (20-40); Mean Corpuscular HGB Conc 32.7 g/dl (31.0-36.0); Mean Corpuscular Volume 94.8 fL (80.0-98.0); Mean Platelet Volume 8.3 fL (9.4-12.4); Monocytes Absolute Auto 0.9 X10*3/uL (0.1-1.2); Monocytes Percent Auto 7.8 % (2-11); Neutrophils Absolute Auto 7.1 x10*3/uL (2.0-8.3); Neutrophils Percent Auto 59.8 % (45-73); Platelet Count 313 X10*3/uL (160-400); Red Blood Count 4.97 X10*6/uL (4.60-5.80); Red Cell Distribution Width 12.4 % (11.0-16.0); White Blood Count 11.8 X10*3/uL (4.8-10.8)
== END 2024-09-09 12:49 | disposition home or self-care (01) ==
LOC: HO.HMGCLDS 12:48
PROVIDERS: PCP Nurse Practitioner Family; Visit Provider Nurse Practitioner Family
DX: D72.829 Elevated white blood cell count, unspecified (principal)
CPT/HCPCS: 36415; 85025

== ENCOUNTER 2024-09-27 13:02 | Outpatient (REF) | payer BC, SELFPAY ==
--- NOTE | ~2024-09-27 | XR_ITS ---
CLINICAL HISTORY: D72.829 - Elevated white blood cell count, unspecified 2 view chest x-ray Comparison: None Findings: Moderately large layering left effusion suggested. No right effusion. Mild interstitial prominence. Cardiac and mediastinal contours are prominent. No acute fracture. IMPRESSION: Moderately large layering left effusion suggested. This document has been electronically signed by: Kranthi Recinos MD on 09/28/2024 12:28:28
== END 2024-09-27 13:03 | disposition home or self-care (01) ==
LOC: HO.HMGCX 13:02
PROVIDERS: PCP Nurse Practitioner Family; Visit Provider Nurse Practitioner Family
DX: E66.9 Obesity, unspecified (principal); Z68.41 Body mass index [BMI] 40.0-44.9, adult; J98.4 Other disorders of lung; J44.9 Chronic obstructive pulmonary disease, unspecified; G47.33 Obstructive sleep apnea (adult) (pediatric); D72.829 Elevated white blood cell count, unspecified; R06.02 Shortness of breath; Z71.3 Dietary counseling and surveillance
CPT/HCPCS: 71046

== ENCOUNTER → 2024-09-27 13:06 | Outpatient (BNV) | payer BC, SELFPAY | PROVIDERS: PCP Nurse Practitioner Family; Visit Provider Radiology Vascular & Interventional Radiology | DX: D72.829 Elevated white blood cell count, unspecified (principal) | CPT/HCPCS: 71046 ==

== ENCOUNTER 2024-09-27 13:39 | Outpatient (AMB) | payer BC, SELFPAY ==
[2024-09-27 13:50] VITALS: BP 152/100; PULSE 101; O2SAT 96; BMI 44.1
--- NOTE | 2024-09-27 13:50 | MHC.OFFVIS ---
Vital Signs 09/27/24 13:50 Height 6 ft 3 in Weight 352 lb 11.834 oz BMI 44.1 BP 152/100 H Blood Pressure Location Rt brachial Position Sitting Pulse 101 H Pulse Source Pulse Oximeter Pulse Oximetry (%) 96 Oxygen Delivery Method Room Air Intake Visit Reasons: Shortness of breath Allergies pravastatin [PRAVASTATIN] Allergy (Intermediate, Verified 09/27/24 14:29) RASH clonidine Allergy (Unknown, Verified 09/27/24 14:29) facial rash lisinopril Allergy (Unknown, Verified 09/27/24 14:29) achy, back pain, achy labetalol Adverse Reaction (Unknown, Verified 09/27/24 14:29) achy Seasonal Allergy (Unknown, Uncoded 09/27/24 14:29) unknown Medication List - Last Reconciled 09/27/24 by Rafia Thomson MD ammonium lactate 12% 1 appl topical DAILY ketoconazole 2% 1 appl topical DAILY Do you need a note to return to daycare/school/sports/work: No HPI HPI Shortness of breath: Details: 64 years old gentleman with morbid obesity. Comes after 6 months for follow-up. He is a case of morbid obesity/obstructive sleep apnea but does not want to use the CPAP. He is main complaint is dyspnea on exertion which is most likely related to his morbid obesity. He denies any attacks of cough or wheezing. At present he does have Advair inhaler at home but he does not use it. He does not have any rescue inhaler. He states that he did go to the weight management program once but then did not want to follow through because, He is not going to do much walking or cut down the calories intake. He comes to see me mainly because of shortness of breath which is mostly related to his physical activity and is as expected. [facility] Medical History Restrictive lung disease Carotid stenosis Food poisoning Salmonella COPD (chronic obstructive pulmonary disease) RACHELE (obstructive sleep apnea) Obesity (BMI 35.0-39.9 without comorbidity) Constipation Encounter for screening colonoscopy Spinal stenosis, lumbar SSS (sick sinus syndrome) Atrial flutter DVT (deep venous thrombosis) Aortic root dilatation Sleep apnea Dorsalgia PVD (peripheral vascular disease) HTN (hypertension) Surgical History Hx of cardiac pacemaker History of inguinal hernia repair History of hip replacement Family History Father Heart problem Pacemaker Colon cancer Mother No problems noted. Maternal Grandmother Cancer Maternal Grandfather Arthritis Brother No problems noted. Daughter No problems noted. Daughter No problems noted. Social History Household Members: Spouse Household Members Other:: cats Housing: House Are you a primary career information specialist to a significant other at home: No Do you presently have visiting nurse or other home services: No Alcohol intake: former Patient Tobacco Use Status: Former Tobacco user Tobacco use type: Cigar e-Cigarette/Vaping Use: Never Used Second Hand Smoke Exposure: Yes service: No Current occupational status: unemployed and disabled Cognitive needs: No Hearing needs: No Vision needs: No Review of Systems Const All systems reviewed & are unremarkable except as noted in HPI and below Eyes Reports no additional complaints ENT Reports no additional complaints Card Denies chest pain, Denies irregular heart rhythm and Denies leg edema Resp Reports as per HPI GI Reports no additional complaints Reports no additional complaints Musc Reports back pain (mild) Skin/Breast Reports system reviewed and no additional complaints, except as documented Neuro Reports no additional complaints Psych Reports no additional complaints Physical Exam Vital Signs: Last Vital Signs Pulse 101 H 09/27/24 13:50 BP 152/100 H 09/27/24 13:50 Pulse Ox 96 09/27/24 13:50 Oxygen Delivery Method Room Air 09/27/24 13:50 BMI result Body Mass Index 44.1 He is grossly obese with a round face and very fat neck. Const General: comfortable, no acute distress, alert and awake Orientation/consciousness: patient oriented x3 HEENT Head: Yes normal to inspection General nose exam: No nasal polyps present and No nasal discharge present Face and sinus: Yes sinuses nontender Mouth: oropharynx abnormals (Oropharynx is crowded with Mallampati class 3) Throat: Yes posterior oropharynx normal Eyes General: appearance normal, both eyes and all related structures Neck Neck: Yes normal visual inspection, Yes no lymphadenopathy, Yes trachea midline and Yes no JVD Thyroid: Thyroid normal Chest Chest palpation & inspection: normal inspection of the chest, normal palpation of entire chest wall and no tenderness Resp Other: Percussion note is resonant, has good breath sounds on both sides but diminished over the basilar areas No wheezes or rhonchi are heard Cardio Palpation: normal PMI Rate: regular rate Rhythm: regular rhythm Heart sounds: no gallops and no murmurs Peripheral pulses: Peripheral pulses 2+ throughout GI Palpation (GI): Soft to palpation, nontender, No hepatosplenomegaly present, no masses and Other GI palpation findings present (Abdomen is obese and protuberant) Auscultation: normal bowel sounds Back/Spine/Pelvis Thoracic/Lumbar Spine: thoracic and lumbar spine normal to inspection and thoraco-lumbar ROM limited Skin General skin exam: no rashes or lesions noted and dry skin (over the legs) Neuro General: patient oriented x3 and no focal motor deficits Cranial nerves: Yes CN's II-XII intact bilaterally Extrem General: Yes normal to inspection, Yes no clubbing, cyanosis or edema, Yes no calf tenderness and Yes venous stasis dermatitis Psych Appearance: grossly normal and well kempt Speech and movement: Normal speech and movement present Assessment & Plan Assessment & Plan (1) Obesity (BMI 35.0-39.9 without comorbidity): Comment: HE IS A CASE OF MORBID OBESITY, HAS NOT LOST ANY WEIGHT SINCE HIS LAST VISIT. HE IS NOT IN ANY WEIGHT MANAGEMENT PROGRAM AND DOES NOT WANT TO JOIN ANY PROGRAM . HE IS TRYING TO LIMIT HIS DIET. CANNOT DO ANY EXERCISE HE GETS SHORT OF BREATH ON MINIMAL WALKING. Code(s): E66.9 - Obesity, unspecified Category: Medical Plan: I DISCUSSED WITH HIM AND EXPLAINED THAT MOST OF HIS PROBLEM IS BEING MORBIDLY OBESE. AND IF HE CAN NOT JOIN ANY REGULAR WEIGHT MANAGEMENT PROGRAM THEN ON HIS OWN SHOULD TRY TO REDUCE THE CALORIES INTAKE AND ALSO TRY TO WALK EVEN ON THE LEVEL GROUND . (2) Restrictive lung disease: Comment: BECAUSE OF HIS SUPER MORBID OBESITY HE HAS RESTRICTIVE LUNG DISEASE. Code(s): J98.4 - Other disorders of lung Category: Medical Plan: GOAL IS TO LOSE SOME WEIGHT ALSO INSTRUCTED TO DO DEEP BREATHING EXERCISES AT LEAST 3 TIMES A DAY. (3) COPD (chronic obstructive pulmonary disease): Comment: [id number] PER previous PFT. SPIROMETRY SHOWED THAT THERE IS SOME WORSENING OF THE FLOW VOLUMES. HE WAS STARTED ON FLUTICASONE-SALMETEROL 250-51 INHALATION B.I.D.. HE DOES NOT EXPERIENCE ANY IMPROVEMENT WITH THAT. AND THERE IS THE ADDED STRESS OF LARGE CO-PAYMENT. Code(s): J44.9 - Chronic obstructive pulmonary disease, unspecified Category: Medical Plan: ADVISED HIM TO KEEP FLUTICASONE-SALMETEROL 250-50, INHALER ON HAND AND USE IT IF HE STARTS HAVING ANY COUGH OR WHEEZING ATTACKS AT REST (4) RACHELE (obstructive sleep apnea): Comment: HISTORY IS POSITIVE FOR OBSTRUCTIVE SLEEP APNEA BUT HE COULD NOT TOLERATE THE CPAP. HE CLAIMS TO BE ASYMPTOMATIC FAR SLEEP APNEA IS CONCERNED. ONCE AGAIN HE EXPLAINS THAT HE SLEEPS OKAY, HE IS NOT BOTHERED BY SLEEP APNEA. AND HE IS NOT GOING TO TRY USING CPAP. Code(s): G47.33 - Obstructive sleep apnea (adult) (pediatric) Category: Medical Plan: PATIENT NOT ABLE TO USE THE CPAP. HE WILL TRY TO LOSE SOME WEIGHT. (5) SOB (shortness of breath): Comment: DYSPNEA ON EXERTION, MOST LIKELY SECONDARY TO RESTRICTIVE PULMONARY DISORDER, RESULT OF MORBID OBESITY. HE MAY HAVE SOME DEGREE OF OBSTRUCTIVE LUNG DISORDER DUE TO PREVIOUS SMOKING, Code(s): R06.02 - Shortness of breath Category: Medical Plan: IS ONLY WEIGHT REDUCTION WHICH WOULD IMPROVE HIS SHORTNESS OF BREATH ON WALKING. HE DEFINITELY DOES NOT SEEM TO BE INTERESTED IN ANY ACTIVE EXERCISE PROGRAM . ADVISE THAT HE HIMSELF SHOULD DO DEEP BREATHING EXERCISES 2 OR 3 TIMES A DAY. HE CAN COME AND SEE ME ONCE A YEAR OR Q 6 MONTHS. Coding Level of Care Code Est Pt Level 3 (96417) Diagnoses Obesity (BMI 35.0-39.9 without comorbidity) E66.9 Restrictive lung disease J98.4 COPD (chronic obstructive pulmonary disease) J44.9 RACHELE (obstructive sleep apnea) G47.33 SOB (shortness of breath) R06.02
== END 2024-09-27 14:26 | disposition home or self-care (01) ==
LOC: HO.HPS 13:40
PROVIDERS: PCP Nurse Practitioner Family; Visit Provider Internal Medicine
DX: E66.9 Obesity, unspecified (principal); J98.4 Other disorders of lung; J44.9 Chronic obstructive pulmonary disease, unspecified; G47.33 Obstructive sleep apnea (adult) (pediatric); R06.02 Shortness of breath
CPT/HCPCS: 99213

== ENCOUNTER 2024-09-30 10:00 | Outpatient (AMB) | payer BC, SELFPAY ==
--- NOTE | 2024-09-30 10:23 | MHC.OFFVIS ---
Vital Signs 09/30/24 10:24 Height 6 ft 3 in Weight 352 lb BMI 44.0 BP 140/84 H Blood Pressure Location Lt brachial Position Sitting Pulse 68 Pulse Source Pulse Oximeter Pulse Oximetry (%) 96 Oxygen Delivery Method Room Air Intake Visit Reasons: f/u chest xray Intake Note: pt is here to discuss chest xray Allergies pravastatin [PRAVASTATIN] Allergy (Intermediate, Verified 09/30/24 12:06) RASH clonidine Allergy (Unknown, Verified 09/30/24 12:06) facial rash lisinopril Allergy (Unknown, Verified 09/30/24 12:06) achy, back pain, achy labetalol Adverse Reaction (Unknown, Verified 09/30/24 12:06) achy Seasonal Allergy (Unknown, Uncoded 09/30/24 12:06) unknown Medication List - Last Reconciled 09/30/24 by Rafia Thomson MD ammonium lactate 12% 1 appl topical DAILY ketoconazole 2% 1 appl topical DAILY Do you need a note to return to daycare/school/sports/work: No HPI HPI f/u chest xray: Details: THIS 64 YEARS OLD GENTLEMAN WITH MORBID OBESITY, COMES BACK FOR FOLLOW-UP TODAY. HIS CHEST X-RAY DONE ON 09/28/24 WAS REPORTED TO SHOW A SMALL TO MODERATE-SIZED PLEURAL EFFUSION ON THE LEFT SIDE. THE PATIENT IS VERY WAY, ABOUT THE CIRCUMSTANCES IN WHICH HE HAD A CHEST X-RAY ORDERED. HE WAS SEEN BY ME HERE IN THE OFFICE ON 09/27, AND THEN APPARENTLY HE WENT TO SEE HIS PRIMARY CARE PHYSICIAN ON THE SAME DAY, HE HAD MENTIONED THAT A FEW WEEKS AGO HE HAD SOME CHEST CONGESTION, SO HE WAS SENT FOR A CHEST X-RAY, WHICH WAS REPORTED TO HAVE TAYLOR. LEFT-SIDED PLEURAL EFFUSION WHEN I SAW HIM ON 09/27, HE HAD NOT COMPLAINED OF ANY COUGH CHEST PAIN OR WHEEZING. BECAUSE OF HIS GROSS OBESITY IT IS VERY DIFFICULT TO DO THE PERCUSSION OR AUSCULTATION ON HIS CHEST BUT HE DEFINITELY DID NOT COMPLAIN OF ANY RESPIRATORY ISSUES. TODAY AGAIN HE DOES NOT HAVE ANY COUGH OR WHEEZING OR CHEST PAIN. HE HAS CHRONIC PERIPHERAL VASCULAR INSUFFICIENCY AND STASIS EDEMA, BUT NOTHING ACUTE IS NOTED. [facility] Medical History (Updated 09/30/24 @ 12:17 by Rafia Thomson MD) Pleural effusion Restrictive lung disease Carotid stenosis Food poisoning Salmonella COPD (chronic obstructive pulmonary disease) RACHELE (obstructive sleep apnea) Obesity (BMI 35.0-39.9 without comorbidity) Constipation Encounter for screening colonoscopy Spinal stenosis, lumbar SSS (sick sinus syndrome) Atrial flutter DVT (deep venous thrombosis) Aortic root dilatation Sleep apnea Dorsalgia PVD (peripheral vascular disease) HTN (hypertension) Surgical History Hx of cardiac pacemaker History of inguinal hernia repair History of hip replacement Family History Father Heart problem Pacemaker Colon cancer Mother No problems noted. Maternal Grandmother Cancer Maternal Grandfather Arthritis Brother No problems noted. Daughter No problems noted. Daughter No problems noted. Social History Household Members: Spouse Household Members Other:: cats Housing: House Are you a primary customer care coordinator to a significant other at home: No Do you presently have visiting nurse or other home services: No Alcohol intake: former Patient Tobacco Use Status: Former Tobacco user Tobacco use type: Cigar e-Cigarette/Vaping Use: Never Used Second Hand Smoke Exposure: Yes service: No Current occupational status: unemployed and disabled Cognitive needs: No Hearing needs: No Vision needs: No Review of Systems Const All systems reviewed & are unremarkable except as noted in HPI and below Eyes Reports no additional complaints ENT Reports no additional complaints Card Denies chest pain, Denies irregular heart rhythm and Denies leg edema Resp Reports as per HPI GI Reports no additional complaints Reports no additional complaints Musc Reports back pain (mild) Skin/Breast Reports system reviewed and no additional complaints, except as documented Neuro Reports no additional complaints Psych Reports no additional complaints Physical Exam Vital Signs: Last Vital Signs Pulse 68 09/30/24 10:24 BP 140/84 H 09/30/24 10:24 Pulse Ox 96 09/30/24 10:24 Oxygen Delivery Method Room Air 09/30/24 10:24 BMI result Body Mass Index 44.0 He is grossly obese with a round face and very fat neck. Const General: comfortable, no acute distress, alert and awake Orientation/consciousness: patient oriented x3 HEENT Head: Yes normal to inspection General nose exam: No nasal polyps present and No nasal discharge present Face and sinus: Yes sinuses nontender Mouth: oropharynx abnormals (Oropharynx is crowded with Mallampati class 3) Throat: Yes posterior oropharynx normal Eyes General: appearance normal, both eyes and all related structures Neck Neck: Yes normal visual inspection, Yes no lymphadenopathy, Yes trachea midline and Yes no JVD Thyroid: Thyroid normal Chest Chest palpation & inspection: normal inspection of the chest, normal palpation of entire chest wall and no tenderness Resp Other: Percussion note is resonant but it is difficult to do percussion. Over the basilar areas The breath sounds are generally diminished over both basilar areas. I do not hear any crepitations or rhonchi . Cardio Palpation: normal PMI Rate: regular rate Rhythm: regular rhythm Heart sounds: no gallops and no murmurs Peripheral pulses: Peripheral pulses 2+ throughout GI Palpation (GI): Soft to palpation, nontender, No hepatosplenomegaly present, no masses and Other GI palpation findings present (Abdomen is obese and protuberant) Auscultation: normal bowel sounds Back/Spine/Pelvis Thoracic/Lumbar Spine: thoracic and lumbar spine normal to inspection and thoraco-lumbar ROM limited Skin General skin exam: no rashes or lesions noted and dry skin (over the legs) Neuro General: patient oriented x3 and no focal motor deficits Cranial nerves: Yes CN's II-XII intact bilaterally Extrem General: Yes normal to inspection, Yes no clubbing, cyanosis or edema, Yes no calf tenderness and Yes venous stasis dermatitis Psych Appearance: grossly normal and well kempt Speech and movement: Normal speech and movement present Results Reviewed Results Reviewed: Chest x-ray upright and left lateral, on 09/28 does show mild to moderate-sized effusion in the left lower lobe area. There is some haziness of the left base. Assessment & Plan Assessment & Plan (1) Pleural effusion: Comment: Mild to moderate size pleural effusion, left chest, reported on the chest x-ray, etiology undetermined. Could be after his subclinical bout of recent pneumonia, could be associated with basilar atelectasis. Code(s): J90 - Pleural effusion, not elsewhere classified Category: Medical Plan: Empirically treat with a course of Augmentin for possibility of pneumonia and post pneumonic effusion. Repeat chest x-ray after 2 weeks, if he still has persistent pleural effusion then further workup including thoracenteses may be needed. (2) Restrictive lung disease: Comment: BECAUSE OF HIS SUPER MORBID OBESITY HE HAS RESTRICTIVE LUNG DISEASE. Code(s): J98.4 - Other disorders of lung Category: Medical Plan: Patient is advised to do deep breathing exercises , incentive spirometry device given from the office. He is encouraged to do 10 deep breathing every 2 hours while awake. (3) COPD (chronic obstructive pulmonary disease): Comment: [id number] PER previous PFT. SPIROMETRY SHOWED THAT THERE IS SOME WORSENING OF THE FLOW VOLUMES. HE TRIED TO USE FLUTICASONE-SALMETEROL 250-51 INHALATION B.I.D, BUT AFTER SEEING NO POSITIVE EFFECT HE STOP USING IT SO AT PRESENT HE DOES NOT HAVE ANY BRONCHODILATOR INHALER ON HAND. Code(s): J44.9 - Chronic obstructive pulmonary disease, unspecified Category: Medical Plan: CONTINUE TO WATCH FOR ANY SYMPTOMS OF FREQUENT COUGH WHEEZING OR SHORTNESS OF BREATH, AND THEN CAN RECONSIDER . USE OF BRONCHODILATOR INHALERS Orders: Orders XR chest 2V Today J90 - Pleural effusion, not elsewhere classified Medications: New amoxicillin-pot clavulanate 500-125 mg (Augmentin) 1 tab PO TID 30 tabs 0RF PNEUMONIA/EFFUSION 10 days Coding Level of Care Code Est Pt Level 3 (02102) Diagnoses Pleural effusion J90 Restrictive lung disease J98.4 COPD (chronic obstructive pulmonary disease) J44.9
[2024-09-30 10:24] VITALS: BP 140/84; PULSE 68; O2SAT 96; BMI 44.0
== END 2024-09-30 10:57 | disposition home or self-care (01) ==
LOC: HO.HPS 10:01
PROVIDERS: PCP Nurse Practitioner Family; Visit Provider Internal Medicine
DX: J90 Pleural effusion, not elsewhere classified (principal); J98.4 Other disorders of lung; J44.9 Chronic obstructive pulmonary disease, unspecified
CPT/HCPCS: 99213

== ENCOUNTER → 2024-09-30 10:00 | Outpatient (BNVA) | payer BC, SELFPAY | PROVIDERS: PCP Nurse Practitioner Family; Visit Provider Internal Medicine ==

== ENCOUNTER 2024-10-08 08:24 | Outpatient (REF) | payer BC, SELFPAY ==
--- NOTE | ~2024-10-08 | XR_ITS ---
EXAMINATION: XR CHEST CLINICAL INFORMATION: J90 - Pleural effusion, not elsewhere classified COMPARISON: 09/27/2024, 01/26/2021. TECHNIQUE: AP, lateral, and left lateral decubitus views of the chest. FINDINGS: Left-sided dual-lead pacer device in place with leads in the right atrium and right ventricle. Cardiac silhouette appears enlarged. There is partial obscuration of the left heart border. Mediastinal and hilar contours appear normal. There is a mild to moderate-sized layering left pleural effusion, which layers dependently on the lateral decubitus films. No definite loculation radiographically. The right lung is clear. There is no perceptible pneumothorax. There is no focal osseous or soft tissue abnormality. XR/XR chest 2V IMPRESSION: 1. Mild to moderate left layering pleural effusion. 2. Dual-lead pacer device in good position. 3. Mild cardiac enlargement. Electronically signed by: Marcelo Cedillo MD 10/08/2024 10:28 AM EDT
== END 2024-10-08 08:25 | disposition home or self-care (01) ==
LOC: HO.HMGCX 08:24
PROVIDERS: PCP Nurse Practitioner Family; Visit Provider Internal Medicine
DX: J90 Pleural effusion, not elsewhere classified (principal)
CPT/HCPCS: 71046

== ENCOUNTER → 2024-10-08 08:59 | Outpatient (BNV) | payer BC, SELFPAY | PROVIDERS: PCP Nurse Practitioner Family; Visit Provider Radiology Diagnostic Radiology | DX: I51.7 Cardiomegaly (principal) | CPT/HCPCS: 71046 ==

== ENCOUNTER 2024-10-11 15:08 | Outpatient (AMB) | payer BC, SELFPAY ==
--- NOTE | 2024-10-11 15:10 | A.OFFVIS_ITS ---
Vital Signs 10/11/24 15:11 Height 6 ft 3 in Weight 352 lb BMI 44.0 BP 122/92 H Blood Pressure Location Lt brachial Position Sitting Pulse 88 Pulse Source Pulse Oximeter Pulse Oximetry (%) 97 Oxygen Delivery Method Room Air Intake Visit Reasons: COPD Intake Note: pt is here for follow up of chest xray, he does get wheezy Embedded Software Developer Required: No Allergies pravastatin [PRAVASTATIN] Allergy (Intermediate, Verified 10/11/24 15:34) RASH clonidine Allergy (Unknown, Verified 10/11/24 15:34) facial rash lisinopril Allergy (Unknown, Verified 10/11/24 15:34) achy, back pain, achy labetalol Adverse Reaction (Unknown, Verified 10/11/24 15:34) achy Seasonal Allergy (Unknown, Uncoded 10/11/24 15:34) unknown Do you need a note to return to daycare/school/sports/work: No HPI HPI COPD: Details: 64 YEARS OLD GENTLEMAN IS HERE FOR FOLLOW-UP AFTER 2 WEEKS. HE IS COMPLETING THE COURSE OF AUGMENTIN 500 MG T.I.D. FOR 10 DAYS. DENIES HAVING ANY FEVER OR CHEST PAIN. HIS SHORTNESS OF BREATH ON EXERTION IS SAME USUAL. HE REMEMBERS THAT A FEW MONTHS AGO HE DID HAVE SOME SYMPTOMS OF COUGH AND LOW- GRADE FEVER AND MAY HAVE HAD RESPIRATORY INFECTION AT THAT TIME BUT IT HE WAS NOT CHECKED FOR THAT. HE IS QUITE OVERWEIGHT BUT DENIES SYMPTOMS OF OBSTRUCTIVE SLEEP APNEA. HE SLEEPS MOSTLY ON HIS LEFT SIDE. HE HAD A CHEST X-RAY DONE BEFORE COMING HERE TODAY, WHICH SHOWS THAT HE STILL HAS MILD TO MODERATE SIZE PLEURAL EFFUSION ON THE LEFT. [facility] Medical History Pleural effusion Restrictive lung disease Carotid stenosis Food poisoning Salmonella COPD (chronic obstructive pulmonary disease) RACHELE (obstructive sleep apnea) Obesity (BMI 35.0-39.9 without comorbidity) Constipation Encounter for screening colonoscopy Spinal stenosis, lumbar SSS (sick sinus syndrome) Atrial flutter DVT (deep venous thrombosis) Aortic root dilatation Sleep apnea Dorsalgia PVD (peripheral vascular disease) HTN (hypertension) Surgical History Hx of cardiac pacemaker History of inguinal hernia repair History of hip replacement Family History Father Heart problem Pacemaker Colon cancer Mother No problems noted. Maternal Grandmother Cancer Maternal Grandfather Arthritis Brother No problems noted. Daughter No problems noted. Daughter No problems noted. Social History Household Members: Spouse Household Members Other:: cats Housing: House Are you a primary resident care provider to a significant other at home: No Do you presently have visiting nurse or other home services: No Alcohol intake: former Patient Tobacco Use Status: Former Tobacco user Tobacco use type: Cigar e-Cigarette/Vaping Use: Never Used Second Hand Smoke Exposure: Yes service: No Current occupational status: unemployed and disabled Cognitive needs: No Hearing needs: No Vision needs: No Review of Systems Const All systems reviewed & are unremarkable except as noted in HPI and below Eyes Reports no additional complaints ENT Reports no additional complaints Card Denies chest pain, Denies irregular heart rhythm and Denies leg edema Resp Reports as per HPI GI Reports no additional complaints Reports no additional complaints Musc Reports back pain (mild) Skin/Breast Reports system reviewed and no additional complaints, except as documented Neuro Reports no additional complaints Psych Reports no additional complaints Physical Exam Vital Signs: Last Vital Signs Pulse 88 10/11/24 15:11 BP 122/92 H 10/11/24 15:11 Pulse Ox 97 10/11/24 15:11 Oxygen Delivery Method Room Air 10/11/24 15:11 BMI result Body Mass Index 44.0 He is grossly obese with a round face and very fat neck. Const General: comfortable, no acute distress, alert and awake Orientation/consciousness: patient oriented x3 HEENT Head: Yes normal to inspection General nose exam: No nasal polyps present and No nasal discharge present Face and sinus: Yes sinuses nontender Mouth: oropharynx abnormals (Oropharynx is crowded with Mallampati class 3) Throat: Yes posterior oropharynx normal Eyes General: appearance normal, both eyes and all related structures Neck Neck: Yes normal visual inspection, Yes no lymphadenopathy, Yes trachea midline and Yes no JVD Thyroid: Thyroid normal Chest Chest palpation & inspection: normal inspection of the chest, normal palpation of entire chest wall and no tenderness Resp Other: Percussion note is resonant but it is difficult to do percussion over the basilar areas The breath sounds are generally diminished over both basilar areas. I do not hear any crepitations or rhonchi . Cardio Palpation: normal PMI Rate: regular rate Rhythm: regular rhythm Heart sounds: no gallops and no murmurs Peripheral pulses: Peripheral pulses 2+ throughout GI Palpation (GI): Soft to palpation, nontender, No hepatosplenomegaly present, no masses and Other GI palpation findings present (Abdomen is obese and protuberant) Auscultation: normal bowel sounds Back/Spine/Pelvis Thoracic/Lumbar Spine: thoracic and lumbar spine normal to inspection and thoraco-lumbar ROM limited Skin General skin exam: no rashes or lesions noted and dry skin (over the legs) Neuro General: patient oriented x3 and no focal motor deficits Cranial nerves: Yes CN's II-XII intact bilaterally Extrem General: Yes normal to inspection, Yes no clubbing, cyanosis or edema, Yes no calf tenderness and Yes venous stasis dermatitis Psych Appearance: grossly normal and well kempt Speech and movement: Normal speech and movement present Results Reviewed Results Reviewed: Chest Xray on 10/11/24 IMPRESSION: 1. Mild to moderate left layering pleural effusion. No significant change from the previous findings. 2. Dual-lead pacer device in good position. 3. Mild cardiac enlargement. Assessment & Plan Assessment & Plan (1) Restrictive lung disease: Comment: BECAUSE OF HIS SUPER MORBID OBESITY HE HAS RESTRICTIVE LUNG DISEASE. DOES HAVE MILD SHORTNESS OF BREATH ON WALKING UP HILL OR FAST . Code(s): J98.4 - Other disorders of lung Category: Medical Plan: EXPLAINED ABOUT THE RESTRICTIVE LUNG DISEASES MAINLY BECAUSE OF HIS SUPER MORBID OBESITY. (2) COPD (chronic obstructive pulmonary disease): Comment: [id number] PER previous PFT. SPIROMETRY SHOWED THAT THERE IS SOME WORSENING OF THE FLOW VOLUMES. HE TRIED TO USE FLUTICASONE-SALMETEROL 250-50 1 INHALATION B.I.D, BUT AFTER SEEING NO POSITIVE EFFECT HE STOP USING IT SO AT PRESENT HE DOES NOT HAVE ANY BRONCHODILATOR INHALER ON HAND. Code(s): J44.9 - Chronic obstructive pulmonary disease, unspecified Category: Medical Plan: ADVISED TO CONTINUE DOING DEEP BREATHING EXERCISES WITH THE INCENTIVE SPIROMETRY. (3) RACHELE (obstructive sleep apnea): Comment: HISTORY IS POSITIVE FOR OBSTRUCTIVE SLEEP APNEA BUT HE COULD NOT TOLERATE THE CPAP. HE CLAIMS TO BE ASYMPTOMATIC FAR SLEEP APNEA IS CONCERNED. ONCE AGAIN HE EXPLAINS THAT HE SLEEPS OKAY, HE IS NOT BOTHERED BY SLEEP APNEA. AND HE IS NOT GOING TO TRY USING CPAP. HE IS SLEEPING MOSTLY IN LEFT LATERAL POSITION Code(s): G47.33 - Obstructive sleep apnea (adult) (pediatric) Category: Medical Plan: ADVISED TO CONTINUE SLEEPING IN THE LEFT LATERAL POSITION. HE NEEDS TO LOSE SIGNIFICANT WEIGHT WHICH SEEMS TO BE NOT A GREAT POSSIBILITY AT THIS TIME. (4) Pleural effusion: Comment: Mild to moderate size pleural effusion, left chest, LAYERS OUT, ON LYING DOWN FLAT, AND DOES NOT SEEM TO BE LOCULATED. Again the etiology seems to be 1 - post pneumonic 2- secondary to atelectasis. 3- nonspecific Clinically it is not symptomatic. Code(s): J90 - Pleural effusion, not elsewhere classified Category: Medical Plan: Discussed with him in detail and options would be as follows : Thoracenteses and fluid analysis Do a CT scan of the chest , for more details . Or wait and watch, and repeat a chest x-ray after 1 month. HE WANTS TO WAIT FOR A MONTH AND THEN REPEAT A CHEST X-RAY AND IF THE FLUID IS STILL PRESENT THEN HE WOULD AGREE TO UNDERGO FURTHER WORKUP. Orders: Orders XR chest 2V 4 Weeks J90 - Pleural effusion, not elsewhere classified Coding Level of Care Code Est Pt Level 3 (10139) Diagnoses Restrictive lung disease J98.4 COPD (chronic obstructive pulmonary disease) J44.9 RACHELE (obstructive sleep apnea) G47.33 Pleural effusion J90
[2024-10-11 15:11] VITALS: BP 122/92; PULSE 88; O2SAT 97; BMI 44.0
== END 2024-10-11 15:35 | disposition home or self-care (01) ==
LOC: HO.HPS 15:09
PROVIDERS: PCP Nurse Practitioner Family; Visit Provider Internal Medicine
DX: J98.4 Other disorders of lung (principal); J44.9 Chronic obstructive pulmonary disease, unspecified; G47.33 Obstructive sleep apnea (adult) (pediatric); J90 Pleural effusion, not elsewhere classified
CPT/HCPCS: 99213

== ENCOUNTER 2024-11-05 07:33 | Outpatient (REF) | payer BC, SELFPAY ==
--- NOTE | ~2024-11-05 | XR_ITS ---
EXAMINATION: XR CHEST CLINICAL INFORMATION: J90 - Pleural effusion, not elsewhere classified COMPARISON: October 08, 2024. TECHNIQUE: 2 views of the chest were obtained. FINDINGS: There is a moderate to large volume crescent shape/meniscal shaped opacity in the left hemithorax with blunting of the left costophrenic angle and inferior left cardiomediastinal silhouette. No pneumothorax. Mild prominence of the interstitial markings. Cardiomediastinal silhouette size is normal. 2. Intact electrode leads in the right heart chambers from a left-sided pacemaker. Multilevel spondylosis. XR/XR chest 2V IMPRESSION: Large volume of left-sided pleural effusion. Underlying lung parenchymal disease process cannot be excluded. Electronically signed by: Juma Luna MD 11/05/2024 08:05 AM EDT
== END 2024-11-05 07:34 | disposition home or self-care (01) ==
LOC: HO.XRAY 07:33
PROVIDERS: PCP Nurse Practitioner Family; Visit Provider Internal Medicine
DX: J90 Pleural effusion, not elsewhere classified (principal)
CPT/HCPCS: 71046

== ENCOUNTER → 2024-11-05 07:51 | Outpatient (BNV) | payer BC, SELFPAY | PROVIDERS: PCP Nurse Practitioner Family; Visit Provider Radiology Diagnostic Radiology | DX: J90 Pleural effusion, not elsewhere classified (principal) | CPT/HCPCS: 71046 ==

== ENCOUNTER 2024-11-11 13:16 | Outpatient (AMB) | payer BC, SELFPAY ==
[2024-11-11 13:27] VITALS: BP 140/80; PULSE 71; O2SAT 95; BMI 44.8
--- NOTE | 2024-11-11 13:27 | A.OFFVIS_ITS ---
Vital Signs 11/11/24 13:27 Height 6 ft 3 in Weight 358 lb 4.019 oz BMI 44.8 BP 140/80 H Blood Pressure Location Lt brachial Position Sitting Pulse 71 Pulse Source Pulse Oximeter Pulse Oximetry (%) 95 Oxygen Delivery Method Room Air Intake Visit Reasons: COPD Intake Note: 64 YEARS OLD GENTLEMAN IS HERE FOR FOLLOW-UP AFTER 4 WEEKS. HE COMPLETED ANOTHER COURSE OF AUGMENTIN 500 MG T.I.D. FOR 10 DAYS. DENIES HAVING ANY FEVER OR CHEST PAIN. HIS SHORTNESS OF BREATH ON EXERTION IS SAME USUAL. HE REMEMBERS THAT A FEW MONTHS AGO HE DID HAVE SOME SYMPTOMS OF COUGH AND LOW-G RADE FEVER AND MAY HAVE HAD RESPIRATORY INFECTION AT THAT TIME BUT IT HE WAS NOT CHECKED FOR THAT. HE IS QUITE OVERWEIGHT BUT DENIES SYMPTOMS OF OBSTRUCTIVE SLEEP APNEA. HE SLEEPS MOSTLY ON HIS LEFT SIDE. HE IS A NON SMOKER . HAD A REPEAT CHEST X-RAY ON 11/05, WHICH SHOWS PERSISTENT MODERATE SIZE PLEURAL EFFUSION ON THE LEFT SIDE. 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 Allergies pravastatin (PRAVASTATIN) Allergy (Intermediate, Verified 11/11/24 13:32) RASH clonidine Allergy (Unknown, Verified 11/11/24 13:32) facial rash lisinopril Allergy (Unknown, Verified 11/11/24 13:32) achy, back pain, achy labetalol Adverse Reaction (Unknown, Verified 11/11/24 13:32) achy Seasonal Allergy (Unknown, Uncoded 11/11/24 13:32) unknown [facility] Medical History Pleural effusion Restrictive lung disease Carotid stenosis Food poisoning Salmonella COPD (chronic obstructive pulmonary disease) RACHELE (obstructive sleep apnea) Obesity (BMI 35.0-39.9 without comorbidity) Constipation Encounter for screening colonoscopy Spinal stenosis, lumbar SSS (sick sinus syndrome) Atrial flutter DVT (deep venous thrombosis) Aortic root dilatation Sleep apnea Dorsalgia PVD (peripheral vascular disease) HTN (hypertension) Surgical History Hx of cardiac pacemaker History of inguinal hernia repair History of hip replacement Family History Father Heart problem Pacemaker Colon cancer Mother No problems noted. Maternal Grandmother Cancer Maternal Grandfather Arthritis Brother No problems noted. Daughter No problems noted. Daughter No problems noted. Social History Household Members: Spouse Household Members Other:: cats Housing: House Are you a primary administrator health care facility to a significant other at home: No Do you presently have visiting nurse or other home services: No Alcohol intake: former Patient Tobacco Use Status: Former Tobacco user Tobacco use type: Cigar e-Cigarette/Vaping Use: Never Used Second Hand Smoke Exposure: Yes service: No Current occupational status: unemployed and disabled Cognitive needs: No Hearing needs: No Vision needs: No Review of Systems Const All systems reviewed & are unremarkable except as noted in HPI and below Eyes Reports no additional complaints ENT Reports no additional complaints Card Denies chest pain, Denies irregular heart rhythm and Denies leg edema Resp Reports as per HPI GI Reports no additional complaints Reports no additional complaints Musc Reports back pain (mild) Skin/Breast Reports system reviewed and no additional complaints, except as documented Neuro Reports no additional complaints Psych Reports no additional complaints Physical Exam Vital Signs: Last Vital Signs Pulse 71 11/11/24 13:27 BP 140/80 H 11/11/24 13:27 Pulse Ox 95 11/11/24 13:27 Oxygen Delivery Method Room Air 11/11/24 13:27 BMI result Body Mass Index 44.8 He is grossly obese with a round face and very fat neck. Const General: comfortable, no acute distress, alert and awake Orientation/consciousness: patient oriented x3 HEENT Head: Yes normal to inspection General nose exam: No nasal polyps present and No nasal discharge present Face and sinus: Yes sinuses nontender Mouth: oropharynx abnormals (Oropharynx is crowded with Mallampati class 3) Throat: Yes posterior oropharynx normal Eyes General: appearance normal, both eyes and all related structures Neck Neck: Yes normal visual inspection, Yes no lymphadenopathy, Yes trachea midline and Yes no JVD Thyroid: Thyroid normal Chest Other: THERE IS DULLNESS TO PERCUSSION OVER THE LOWER HALF OF THE LEFT CHEST. Chest palpation & inspection: normal inspection of the chest, normal palpation of entire chest wall and no tenderness Resp Other: Percussion note is resonant but it is difficult to do percussion over the basilar areas The breath sounds are generally diminished over both basilar areas. I do not hear any crepitations or rhonchi . Cardio Palpation: normal PMI Rate: regular rate Rhythm: regular rhythm Heart sounds: no gallops and no murmurs Peripheral pulses: Peripheral pulses 2+ throughout GI Palpation (GI): Soft to palpation, nontender, No hepatosplenomegaly present, no masses and Other GI palpation findings present (Abdomen is obese and protuberant) Auscultation: normal bowel sounds Back/Spine/Pelvis Thoracic/Lumbar Spine: thoracic and lumbar spine normal to inspection and thoraco-lumbar ROM limited Skin General skin exam: no rashes or lesions noted and dry skin (over the legs) Neuro General: patient oriented x3 and no focal motor deficits Cranial nerves: Yes CN's II-XII intact bilaterally Extrem General: Yes normal to inspection, Yes no clubbing, cyanosis or edema, Yes no calf tenderness and Yes venous stasis dermatitis Psych Appearance: grossly normal and well kempt Speech and movement: Normal speech and movement present Results Reviewed Results Reviewed: CHEST XRAY ON 11/05/2024 IMPRESSION: Large volume of left-sided pleural effusion. Underlying lung parenchymal disease process cannot be excluded. Electronically signed by: Juma Luna MD 11/05/2024 08:05 AM EDT RP Assessment & Plan Assessment & Plan (1) Obesity (BMI 35.0-39.9 without comorbidity): Comment: HE IS A CASE OF MORBID OBESITY, HAS NOT LOST ANY WEIGHT SINCE HIS LAST VISIT. HE IS NOT IN ANY WEIGHT MANAGEMENT PROGRAM AND DOES NOT WANT TO JOIN ANY PROGRAM . HE IS TRYING TO LIMIT HIS DIET. CANNOT DO ANY EXERCISE HE GETS SHORT OF BREATH ON MINIMAL WALKING. Code(s): E66.9 - Obesity, unspecified Category: Medical Plan: ONCE AGAIN TALKED ABOUT HIS GROSS OBESITY AND ALSO OBSTRUCTIVE SLEEP APNEA. HE IS NOT IN A POSITION TO LOSE ANY WEIGHT, DENIES SYMPTOMS OF SLEEP APNEA AND CLAIMS THAT HE SLEEPS WELL AT NIGHT. (2) RACHELE (obstructive sleep apnea): Comment: HISTORY IS POSITIVE FOR OBSTRUCTIVE SLEEP APNEA BUT HE COULD NOT TOLERATE THE CP AP. ONCE AGAIN HE EXPLAINS THAT HE SLEEPS OKAY, HE IS NOT BOTHERED BY SLEEP APNEA. AND HE IS NOT GOING TO TRY USING CPAP. HE IS SLEEPING MOSTLY IN LEFT LATERAL POSITION Code(s): G47.33 - Obstructive sleep apnea (adult) (pediatric) Category: Medical Plan: JUST HAD A GOOD DISCUSSION WITH HIM ABOUT SLEEP APNEA AGAIN. TRYING TO SLEEP IN LATERAL POSITION, CAN NOT TOLERATE THE CPAP. ENCOURAGED TO AT LEAST LOSE SOME WEIGHT. (3) Restrictive lung disease: Comment: BECAUSE OF HIS SUPER MORBID OBESITY HE HAS RESTRICTIVE LUNG DISEASE. DOES HAVE MILD SHORTNESS OF BREATH ON WALKING UP HILL OR FAST . Code(s): J98.4 - Other disorders of lung Category: Medical Plan: ADVISED TO WATCH HIS DIET AND LOSE WEIGHT EVEN IF IT IS A FEW LB EVERY MONTH KEEP ON DOING DEEP BREATHING EXERCISES 2 OR 3 TIMES A DAY (4) Pleural effusion: Comment: MODERATE TO LARGE SIZE PLEURAL EFFUSION ON THE LEFT SIDE, SEEMS TO BE LOCULATED . ETIOLOGY : POSSIBILITIES : 1 - post pneumonic 2- secondary to atelectasis. 3- nonspecific Clinically it is not symptomatic. Code(s): J90 - Pleural effusion, not elsewhere classified Category: Medical Plan: BECAUSE THE PLEURAL EFFUSION IS PERSISTENT, HAS A PICTURE OF BEING LOCULATED, I THING IT IS IMPORTANT TO DRAIN THE FLUID, AND DUE PROPER STUDIES. ALSO DO POST THORACENTESES CHEST X-RAY, THEN DECIDE IF HE NEEDS CT SCAN OF THE CHEST I WILL PUT AN ORDER FOR THORACENTESES LEFT CHEST UNDER ULTRASOUND GUIDANCE. CHECK FLUID FOR CELL COUNT, CHEMISTRIES( TOTAL PROTEIN, LDH, AMYLASE, CELL COUNT, CYTOLOGY Orders: Orders US drain thoracentesis w image Today J44.9 - Chronic obstructive pulmonary disease, unspecified, J90 - Pleural effusion, not elsewhere classified, J98.4 - Other disorders of lung Coding Level of Care Code Est Pt Level 3 (32790) Diagnoses Obesity (BMI 35.0-39.9 without comorbidity) E66.9 RACHELE (obstructive sleep apnea) G47.33 Restrictive lung disease J98.4 Pleural effusion J90
== END 2024-11-11 13:56 | disposition home or self-care (01) ==
PROVIDERS: PCP Nurse Practitioner Family; Visit Provider Internal Medicine
DX: E66.9 Obesity, unspecified (principal); G47.33 Obstructive sleep apnea (adult) (pediatric); J98.4 Other disorders of lung; J90 Pleural effusion, not elsewhere classified
CPT/HCPCS: 99213

== ENCOUNTER → 2024-11-11 13:16 | Outpatient (BNVA) | payer BC, SELFPAY | PROVIDERS: PCP Nurse Practitioner Family; Visit Provider Internal Medicine ==

== ENCOUNTER 2024-11-29 06:59 | Day surgery (SDC) | payer BC, SELFPAY ==
[2024-11-29] VITALS (11 sets, daily range): BP systolic 102–146; BP diastolic 68–91; PULSE 63–77; RESP 13–20; TEMP 36.1–36.8; O2SAT 96–98; BMI 44.7
--- NOTE | ~2024-11-29 | US_ITS ---
EXAMINATION: ULTRASOUND-GUIDED THORACENTESIS CLINICAL INFORMATION: Left pleural effusion. COMPARISON: Chest x-ray 11/05/2024 TECHNIQUE: Following explaining ultrasound-guided left thoracentesis procedure, benefits and risk, a written consent was obtained. Patient was placed sitting upright on ultrasound stretcher and preliminary ultrasound imaging was obtained. An optimal site was selected along the left posterior axillary line approximately ninth interspace and a marker was placed on the skin. The marked area in the skin was cleaned and draped in usual sterile manner 2% chlorhexidine solution. 1% lidocaine was injected at puncture site. Through a small skin incision a 5 Icelandic SHERI catheter was advanced into the pleural space. After observing fluid return, stylet was withdrawn and catheter connected to vacuum bottle via connecting cannula. After obtaining all fluid and observing normal fluid return, catheter was withdrawn making show no air leaked in. Sterile dressing applied at the puncture site. Patient tolerated procedure extremely well. Patient was monitored during the exam by IR nurse. A chest x-ray inspiration/expiration was to be obtained subsequently. FINDINGS: On delayed exam there is mild to moderate left pleural effusion. Approximately 600 mL of clear yellowish fluid was drained from the left pleural space. Part of this was sent to lab as per referring physician's orders. US/US thoracentesis IMPRESSION: Successful ultrasound-guided therapeutic and diagnostic left thoracentesis performed. Electronically signed by: Regulo Polk MD 11/29/2024 04:03 PM EDT
--- NOTE | ~2024-11-29 | XR_ITS ---
EXAMINATION: XR CHEST CLINICAL INFORMATION: post left thoracentesis COMPARISON: Chest 11/05/2024 TECHNIQUE: 2 views of the chest were obtained. FINDINGS: Post thoracentesis is expansion of the left lung with no visible pneumothorax seen. Lungs are hypoexpanded with patchy opacity in the left lung base suspicious for infiltrate/atelectasis. Heart size is enlarged. Pulmonary vascularity is normal. There are pacer electrodes in right atrium and right ventricle. No gross bony abnormality seen. XR/XR chest 2V IMPRESSION: Post thoracentesis is expansion of left lung with no visible pneumothorax. There is a patchy opacity left lung base suspicious for infiltrate versus atelectasis. Consider CT chest with contrast as an outpatient to exclude underlying parenchymal process. Electronically signed by: Regulo Polk MD 11/29/2024 09:55 AM EDT
[2024-11-29 08:03] LABS: MANUAL DIFF FLAG NO
[2024-11-29 08:05] LABS: Hematocrit 43.2 % (42.0-52.0); Hemoglobin 14.4 g/dl (14.0-18.0); Imm Gran Abs Auto 0.04 X10*3/uL (0.00-0.03); Imm Gran Pct Auto 0.6 % (0.0-0.4); Lymphocytes Absolute Auto 2.0 X10*3/uL (1.2-4.9); Mean Corpuscular HGB Conc 33.3 g/dl (31.0-36.0); Mean Corpuscular Hemoglobin 30.8 pg (27.0-33.0); Mean Corpuscular Volume 92.3 fL (80.0-98.0); NRBC Abs Auto 0.000 X10*3/uL (0.0-0.012); NRBC Pct Auto 0.0 /100WBC (0.0-0.2); Platelet Count 167 X10*3/uL (160-400); Red Blood Count 4.68 X10*6/uL (4.60-5.80); White Blood Count 6.4 X10*3/uL (4.8-10.8)
[2024-11-29 08:15] LABS: INTERNATIONAL NORM RATIO 1.0 (0.9-1.1); Prothrombin Time 11.4 SEC (10.9-12.4)
[2024-11-29 08:18] LABS: Anion Gap 11 (12-20); Blood Urea Nitrogen 18 mg/dL (9-16); Calcium 8.4 mg/dL (8.4-10.2); Carbon Dioxide 29 mmol/L (22-29); Chloride 103 mmol/L (96-108); Creatinine Clr Calc Pharmacy 132.0; Estimated Glomerular Filt Rate > 60; Potassium 4.5 mmol/L (3.3-5.1); Sodium 138 mmol/L (135-145)
[2024-11-29] MEDS: Lidocaine HCl 1 % MPF 5 ML VIAL SUBCUT (09:55)
[2024-11-29 10:43] LABS: MN% 97.0 %; PMN% 3.0 %; WBC Pleural Fluid 0.705 X10*3/uL
[2024-11-29 11:21] LABS: BF Shift QC OK YES; Man Diluent Bkgrd OK YES
[2024-11-29 11:24] LABS: Eosinophils Pleural Fluid 1 %; Lymphocytes Pleural Fluid 82 %; Monocytes Pleural Fluid 17 %
== END 2024-11-29 11:32 | disposition home or self-care (01) ==
PROVIDERS: Radiology Diagnostic Radiology; PCP Nurse Practitioner Family; Visit Provider Internal Medicine
DX: J90 Pleural effusion, not elsewhere classified (principal); J98.4 Other disorders of lung; J44.9 Chronic obstructive pulmonary disease, unspecified
CPT/HCPCS: 32555; 36415; 71046; 80048; 82150; 83615; 84157; 85025; 85610; 88112; 88305; 89051; J2003

== ENCOUNTER → 2024-11-29 08:39 | Outpatient (BNV) | payer BC, SELFPAY | PROVIDERS: PCP Nurse Practitioner Family; Visit Provider Radiology Diagnostic Radiology | DX: J90 Pleural effusion, not elsewhere classified (principal); R91.8 Other nonspecific abnormal finding of lung field | CPT/HCPCS: 32555; 71046 ==

== ENCOUNTER 2024-12-05 07:41 | Emergency (ER) | payer BC, SELFPAY ==
--- NOTE | 2024-12-05 | ECG_ITS ---
Test Reason : FLANK PAIN Blood Pressure : */* mmHG Vent. Rate : 74 BPM Atrial Rate : 74 BPM P-R Int : 220 ms QRS Dur : 134 ms QT Int : 402 ms P-R-T Axes : -10 -86 -8 degrees QTcB Int : 446 ms Sinus rhythm with 1st degree A-V block Left axis deviation Right bundle branch block Inferior infarct , age undetermined Abnormal ECG When compared with ECG of 26-Jan-2021 21:16, Atrial pacing not seen Referred By: Milton South Electronically Signed By: SANDRO WHITE
--- NOTE | ~2024-12-05 | XR_ITS ---
CLINICAL HISTORY: sob 2 view chest x-ray Comparison: CR/CA/SR - XR CHEST 2V - 11/29/24 09:39 EDT CR/SR - XR CHEST 2V - 11/05/24 08:04 EDT Findings: The heart is enlarged but unchanged. Dual lead pacer with left chest battery pack. Left lower lobe consolidation/effusion appears similar to the patient's prior chest radiograph but appears larger compared with the radiograph taken in October. No acute osseous findings. Right lung is clear. IMPRESSION: 1. Left lower lobe consolidation/effusion, enlarging compared with the prior radiograph in October. This document has been electronically signed by: Tomeka Muñoz MD on 12/05/2024 09:40:27
[2024-12-05 07:42] VITALS: BP 141/87; PULSE 79; RESP 22; TEMP 35.4; O2SAT 95; BMI 43.6
--- NOTE | 2024-12-05 07:59 | PC.NURSE ---
Patient reporting left sided flank pain, reports recently had thorecentesis d/t fluid in the left lung. Reports feeling more sob today, is unable to lay flat because of pain in left flank. last bm x 2 days ago but reports feeling constipated, denies chest pain , reports had a headache this am.
--- NOTE | 2024-12-05 09:14 | ED_ITS ---
HPI - General Adult General Chief complaint: General Medical Stated complaint: pain on left side of abd Time Seen by Provider: 12/05/24 09:14 Source: patient Mode of arrival: ambulatory Limitations: no limitations History of Present Illness ED Provider: HPI narrative: 64-year-old male presenting with left-sided rib pain he is status post diagnostic thoracocentesis on November 29, he did have a rash in the area and was itchy he is reporting some numbness in the area as well. Related Data Previous Rx's ?Medication ?Instructions ?Recorded ammonium lactate 12 % topical cream 1 appl topical EDY LY for feet #280 07/29/24 grams ketoconazole 2 % topical cream 1 appl topical DAILY fo r groin #30 07/29/24 grams prednisone 20 mg tablet 40 mg (2 x 20 mg) PO DAILY 5 days 12/05/24 #10 tabs Allergies Allergy/AdvReac Type Severity Reaction Status Date / Time pravastatin (PRAVASTATIN) Allergy Intermediate RASH Verified 12/05/24 07:47 clonidine Allergy Unknown facial rash Verified 12/05/24 07:47 lisinopril Allergy Unknown achy, back Verified 12/05/24 07:47 pain, achy labetalol AdvReac Unknown achy Verified 12/05/24 07:47 Seasonal Allergy Unknown unknown Uncoded 11/29/24 07:56 Review of Systems Constitutional: Constitutional: Reports as per [facility] Past Medical History Medical History Pleural effusion Restrictive lung disease Carotid stenosis Food poisoning Salmonella COPD (chronic obstructive pulmonary disease) RACHELE (obstructive sleep apnea) Obesity (BMI 35.0-39.9 without comorbidity) Constipation Encounter for screening colonoscopy Spinal stenosis, lumbar SSS (sick sinus syndrome) Atrial flutter DVT (deep venous thrombosis) Aortic root dilatation Sleep apnea Dorsalgia PVD (peripheral vascular disease) HTN (hypertension) Surgical History Hx of cardiac pacemaker History of inguinal hernia repair History of hip replacement Family History Family History Father Heart problem Pacemaker Colon cancer Mother No problems noted. Maternal Grandmother Cancer Maternal Grandfather Arthritis Brother No problems noted. Daughter No problems noted. Daughter No problems noted. Social History Social History Household Members: Spouse Household Members Other:: cats Housing: House Are you a primary medication care manager to a significant other at home: No Do you presently have visiting nurse or other home services: No Alcohol intake: former Patient Tobacco Use Status: Former Tobacco user Tobacco use type: Cigar e-Cigarette/Vaping Use: Never Used Second Hand Smoke Exposure: Yes Advance Directives: No Advance Directives Information Provided: No Do you have a plan to hurt others: No Plan service: No Current occupational status: unemployed and disabled Cognitive needs: No Hearing needs: No Vision needs: No Physical Exam ED Vital Signs: Vital Signs - 24 hr 12/05/24 07:42 Temperature 95.7 F L Pulse Rate 79 Respiratory Rate 22 H Blood Pressure 141/87 H Pulse Oximetry 95 Oxygen Delivery Method Room Air BMI result Body Mass Index 43.6 Const Other: * Gen: ?Overall well-appearing patient * HEENT: PERRLA, EOMI, MMM, * Neck: Supple, no LAD * CV: RRR, no obvious murmurs appreciated * Resp: ?No wheezing rales rhonchi no stridor moving air well * Abd: ?Bowel sounds are present, no tenderness no rebound no rigidity * MSK: FROM, strength 5/5 all extremities, no lower extremity edema * Skin: Facial rosacea, dried up lesions along his left flank of the area where he states the pain is does not cross the midline, no purulence * Neuro: ?Alert and oriented x3, moving upper and lower extremities symmetrically, no obvious facial asymmetry noted Medical Decision Making Medical Decision Making MDM Narrative: Patient is presenting with left flank discomfort in the setting of recent thoracocentesis, has crusted lesions over his lower back, his exam is consistent with shingles, it seems he has had shingles at the time of the thoracocentesis does not appear to be any complications from that, no purulence no drainage,, consolidations, his cytology was negative for malignancy as I have updated patient Chest x-ray to me it appears to be more or less similar to his prior x-rays but he does have an effusion in the area, he has had antibiotics in the past and he has seen his provider in 4 days, I will hold off on any antibiotics at this time I will treat him steroids as he seems to be mostly experiencing discomfort due to neuropathic type of pain, the effusion is unlikely to be infectious but also I do not see a g stain or culture result I do see pleural fluid analysis but it does not appear that it was cultured but it also does not appear to be an infectious etiology, in any case I will hold off on antibiotics and let his provider continue with management and workup further Differential Diagnosis Differential Diagnoses: The differential diagnosis associated with the presentation includes ACS, pneumonia, pneumothorax, shingles, cellulitis, abscess, postprocedural bleeding Admission/Observation Consideration of admission/observation: Escalation of care including admission/observation considered Independent Interpretation I performed an independent interpretation of an: EKG (74 beats per minute, right bundle-branch block, no new changes from prior ECG) and Plain X-Ray (No pneumothorax, no mediastinal widening) Radiology Impression Discussion of test interpretation with radiology: I have reviewed the radiologist's reading. Radiologist Impression: IMPRESSION: 1. Left lower lobe consolidation/effusion, enlarging compared with the prior radiograph in October. External Record Review External record reviewed: Office record and Outpatient record Discharge Plan Discharge Clinical Impression: Pleural effusion on left Shingles Qualifiers: Herpes zoster complications: without complications Qualified Code(s): B02.9 - Zoster without complications Patient Disposition: Home, Self-Care Additional Instructions: As discussed I did review her thoracocentesis it was negative for any cancerous etiology and I honestly do not see any evidence that it is infectious, I am not sure what is the cause of the recurrent effusion, I did not feel that providing you with further antibiotics is necessary at this time but on physical examination that the area of the discomfort is actually evidence of having shingles that is the rash that you have and you likely have a degree of neuropathic pain in probably exacerbated by thoracocentesis procedure I am going to start her on steroids, and the next few days you going to see a specialist, should you have any worsening symptoms concerns come back to the ER, your EKG today has been without any changes and your chest x-ray is I discussed with slightly more of effusion or on my evaluation likely about the same. Prescriptions: New prednisone 20 mg tablet 40 mg PO DAILY 5 Days Qty: 10 0RF No Action ammonium lactate 12 % cream 1 appl topical DAILY Qty: 280 0RF ketoconazole 2 % cream 1 appl topical DAILY Qty: 30 0RF Referrals: Catalino Manuel, [facility] [Primary Care Provider, Internal Medicine] - 5 days Print Language: Chinese
[2024-12-05 09:26] VITALS: BP 112/63; PULSE 75; RESP 18; O2SAT 95
[2024-12-05 10:10] VITALS: BP 112/63; PULSE 75; RESP 18; TEMP 36.6; O2SAT 95
== END 2024-12-05 10:10 | disposition home or self-care (01) ==
PROVIDERS: Emergency Provider Emergency Medicine; PCP Nurse Practitioner Family
DX: J90 Pleural effusion, not elsewhere classified (principal); B02.8 Zoster with other complications; R10.2 Pelvic and perineal pain; R21 Rash and other nonspecific skin eruption; I44.0 Atrioventricular block, first degree; R94.31 Abnormal electrocardiogram [ECG] [EKG]
CPT/HCPCS: 71046; 93005; 99283; 99284

== ENCOUNTER → 2024-12-05 07:50 | Outpatient (BNV) | payer BC, SELFPAY | PROVIDERS: Emergency Provider Emergency Medicine; PCP Nurse Practitioner Family; Visit Provider Radiology Diagnostic Radiology | DX: R91.8 Other nonspecific abnormal finding of lung field (principal) | CPT/HCPCS: 71046 ==

== ENCOUNTER → 2024-12-05 09:30 | Outpatient (BNV) | payer BC, SELFPAY | PROVIDERS: Emergency Provider Emergency Medicine; PCP Nurse Practitioner Family; Visit Provider Internal Medicine | DX: I44.0 Atrioventricular block, first degree (principal); I45.10 Unspecified right bundle-branch block | CPT/HCPCS: 93010 ==

== ENCOUNTER 2024-12-09 14:11 | Outpatient (AMB) | payer BC, SELFPAY ==
[2024-12-09 14:16] VITALS: BP 168/86; PULSE 76; O2SAT 93; BMI 44.6
--- NOTE | 2024-12-09 14:16 | MHC.OFFVIS ---
Vital Signs 12/09/24 14:16 Height 6 ft 3 in Weight 357 lb 2.382 oz BMI 44.6 BP 168/86 H Blood Pressure Location Lt brachial Position Sitting Pulse 76 Pulse Source Pulse Oximeter Pulse Oximetry (%) 93 Oxygen Delivery Method Room Air Intake Visit Reasons: COPD Intake Note: pt is here for follow up of thoracentesis Batch Unloader Required: No Allergies pravastatin (PRAVASTATIN) Allergy (Intermediate, Verified 12/09/24 14:46) RASH clonidine Allergy (Unknown, Verified 12/09/24 14:46) facial rash lisinopril Allergy (Unknown, Verified 12/09/24 14:46) achy, back pain, achy labetalol Adverse Reaction (Unknown, Verified 12/09/24 14:46) achy Seasonal Allergy (Unknown, Uncoded 12/09/24 14:46) unknown Medication List - Last Reconciled 12/09/24 by Rafia Thomson MD ammonium lactate 12% 1 appl topical DAILY ketoconazole 2% 1 appl topical DAILY prednisone 40 mg (2 x 20 mg) PO DAILY 5 days Do you need a note to return to daycare/school/sports/work: No HPI HPI COPD: Details: THIS 64 YEARS OLD GENTLEMAN WITH MORBID OBESITY, AND SLEEP APNEA. HAS BEEN FOLLOWED UP FOR LEFT PLEURAL EFFUSION WHICH DID NOT SUBSIDE IN SIZE. SO HE UNDERWENT ULTRASOUND-GUIDED THORACENTESIS ON NOVEMBER 29 . SIX HUNDRED MIL OF FLUID DRAINED. LAB RESULTS : NO NEOPLASTIC CELLS. PROTEIN CONTENT 4.5, LYMPHOCYTES 82%. HE DID WELL AFTER THE THORACENTESES BUT LAST WEEK DEVELOPED PAIN IN THE LEFT LOWER CHEST. HE WAS SEEN IN THE EMERGENCY ROOM AND DIAGNOSED TO HAVE HERPES ZOSTER ERUPTION OVER THE LEFT THORACIC AREA. TREATED WITH PREDNISONE 20 MG B.I.D. FOR 5 DAYS, HE SAY IS THAT PAIN IS VERY MINIMAL. HE CAN TAKE DEEP BREATHS WITHOUT ANY DISCOMFORT. FOR SLEEP APNEA HE TRIES TO SLEEP IN LATERAL POSITION AND SLEEPS WELL. HE WAS NOT ABLE TO USE THE CPAP. ALSO HE IS NOT ABLE TO LOSE MUCH WEIGHT. [facility] Medical History Pleural effusion Restrictive lung disease Carotid stenosis Food poisoning Salmonella COPD (chronic obstructive pulmonary disease) RACHELE (obstructive sleep apnea) Obesity (BMI 35.0-39.9 without comorbidity) Constipation Encounter for screening colonoscopy Spinal stenosis, lumbar SSS (sick sinus syndrome) Atrial flutter DVT (deep venous thrombosis) Aortic root dilatation Sleep apnea Dorsalgia PVD (peripheral vascular disease) HTN (hypertension) Surgical History Hx of cardiac pacemaker History of inguinal hernia repair History of hip replacement Family History Father Heart problem Pacemaker Colon cancer Mother No problems noted. Maternal Grandmother Cancer Maternal Grandfather Arthritis Brother No problems noted. Daughter No problems noted. Daughter No problems noted. Social History Household Members: Spouse Household Members Other:: cats Housing: House Are you a primary child care supervisor to a significant other at home: No Do you presently have visiting nurse or other home services: No Alcohol intake: former Patient Tobacco Use Status: Former Tobacco user Tobacco use type: Cigar e-Cigarette/Vaping Use: Never Used Second Hand Smoke Exposure: Yes service: No Current occupational status: unemployed and disabled Cognitive needs: No Hearing needs: No Vision needs: No Review of Systems Const All systems reviewed & are unremarkable except as noted in HPI and below Eyes Reports no additional complaints ENT Reports no additional complaints Card Denies chest pain, Denies irregular heart rhythm and Denies leg edema Resp Reports as per HPI GI Reports no additional complaints Reports no additional complaints Musc Reports back pain (mild) Skin/Breast Reports system reviewed and no additional complaints, except as documented Neuro Reports no additional complaints Psych Reports no additional complaints Physical Exam Vital Signs: Last Vital Signs Pulse 76 12/09/24 14:16 BP 168/86 H 12/09/24 14:16 Pulse Ox 93 12/09/24 14:16 Oxygen Delivery Method Room Air 12/09/24 14:16 BMI result Body Mass Index 44.6 He is grossly obese with a round face and very fat neck. Const General: comfortable, no acute distress, alert and awake Orientation/consciousness: patient oriented x3 HEENT Head: Yes normal to inspection General nose exam: No nasal polyps present and No nasal discharge present Face and sinus: Yes sinuses nontender Mouth: oropharynx abnormals (Oropharynx is crowded with Mallampati class 3) Throat: Yes posterior oropharynx normal Eyes General: appearance normal, both eyes and all related structures Neck Neck: Yes normal visual inspection, Yes no lymphadenopathy, Yes trachea midline and Yes no JVD Thyroid: Thyroid normal Chest Other: THERE IS DULLNESS TO PERCUSSION OVER THE LOWER HALF OF THE LEFT CHEST. Chest palpation & inspection: normal inspection of the chest, normal palpation of entire chest wall and no tenderness Resp Other: Percussion note is resonant but it is difficult to do percussion over the basilar areas The breath sounds are generally diminished over both basilar areas. I do not hear any crepitations or rhonchi . Cardio Palpation: normal PMI Rate: regular rate Rhythm: regular rhythm Heart sounds: no gallops and no murmurs Peripheral pulses: Peripheral pulses 2+ throughout GI Palpation (GI): Soft to palpation, nontender, No hepatosplenomegaly present, no masses and Other GI palpation findings present (Abdomen is obese and protuberant) Auscultation: normal bowel sounds Back/Spine/Pelvis Thoracic/Lumbar Spine: thoracic and lumbar spine normal to inspection and thoraco-lumbar ROM limited Skin Other: HE HAS SCABBED LESIONS OVER LEFT LOWER THORACIC AREA. General skin exam: no rashes or lesions noted and dry skin (over the legs) Neuro General: patient oriented x3 and no focal motor deficits Cranial nerves: Yes CN's II-XII intact bilaterally Extrem General: Yes normal to inspection, Yes no clubbing, cyanosis or edema, Yes no calf tenderness and Yes venous stasis dermatitis Psych Appearance: grossly normal and well kempt Speech and movement: Normal speech and movement present Results Reviewed Results Reviewed: 12/05/2024 chest xray 1. Left lower lobe consolidation/effusion, enlarging compared with the prior radiograph in October. PLEURAL FLUID ANALYSIS c/w EXUDATIVE FLUID, NEGATIVE FOR MALIGNANCY Assessment & Plan Assessment & Plan (1) Obesity (BMI 35.0-39.9 without comorbidity): Comment: HE IS A CASE OF MORBID OBESITY, BMI 44.6 HAS NOT LOST ANY WEIGHT.. HE IS NOT IN ANY WEIGHT MANAGEMENT PROGRAM AND DOES NOT WANT TO JOIN ANY PROGRAM . HE IS TRYING TO LIMIT HIS DIET. CANNOT DO ANY EXERCISE HE GETS SHORT OF BREATH ON MINIMAL WALKING. Code(s): E66.9 - Obesity, unspecified Category: Medical Plan: ONCE AGAIN TALKED TO HIM ABOUT THE NEED TO LOSE WEIGHT . HE WILL TRY TO LIMIT THE DIETARY INTAKE, BUT CAN NOT DO MUCH EXERCISE (2) RACHELE (obstructive sleep apnea): Comment: HISTORY IS POSITIVE FOR OBSTRUCTIVE SLEEP APNEA BUT HE COULD NOT TOLERATE THE CPAP. ONCE AGAIN HE EXPLAINS THAT HE SLEEPS OKAY, HE IS NOT BOTHERED BY SLEEP APNEA. AND HE IS NOT GOING TO TRY USING CPAP. HE IS SLEEPING MOSTLY IN LEFT LATERAL POSITION Code(s): G47.33 - Obstructive sleep apnea (adult) (pediatric) Category: Medical Plan: REINFORCED, NEED TO LOSE WEIGHT AND ALSO INSTRUCTED TO ALWAYS SLEEP IN LATERAL POSITION (3) Restrictive lung disease: Comment: BECAUSE OF HIS SUPER MORBID OBESITY HE HAS RESTRICTIVE LUNG DISEASE. DOES HAVE MILD SHORTNESS OF BREATH ON WALKING UP HILL OR FAST . Code(s): J98.4 - Other disorders of lung Category: Medical Plan: ADVISED TO LOSE WEIGHT, DO DEEP BREATHING EXERCISES AT LEAST 3 TIMES A DAY. (4) Pleural effusion: Comment: PERSISTENT PLEURAL EFFUSION LEFT CHEST, POST INFECTION /PARAPNEUMONIC EFFUSION , STATUS POST THORACENTESES. NEGATIVE FOR MALIGNANCY, FLUID CHARACTERISTICS AREC/W INFLAMMATORY EFFUSION Code(s): J90 - Pleural effusion, not elsewhere classified Category: Medical Plan: EXPLAINED TO THE PATIENT AND, ADVISED TO KEEP ON DOING DEEP. BREATHING EXERCISES WE HAVE TO WATCH FOR REACCUMULATION. WILL REPEAT CHEST X-RAY IN 2 MONTHS OR BEFORE IF HE BECOMES SHORT OF BREATH. Orders: Orders XR chest 2V Today J90 - Pleural effusion, not elsewhere classified Coding Level of Care Code Est Pt Level 3 (03907) Diagnoses Obesity (BMI 35.0-39.9 without comorbidity) E66.9 RACHELE (obstructive sleep apnea) G47.33 Restrictive lung disease J98.4 Pleural effusion J90
== END 2024-12-09 14:45 | disposition home or self-care (01) ==
PROVIDERS: PCP Nurse Practitioner Family; Visit Provider Internal Medicine
DX: E66.9 Obesity, unspecified (principal); G47.33 Obstructive sleep apnea (adult) (pediatric); J98.4 Other disorders of lung; J90 Pleural effusion, not elsewhere classified
CPT/HCPCS: 99213

== ENCOUNTER 2024-12-28 11:10 | Outpatient (REF) | payer BC, SELFPAY ==
--- NOTE | ~2024-12-28 | XR_ITS ---
EXAMINATION: XR CHEST CLINICAL INFORMATION: J90 - Pleural effusion, not elsewhere classified COMPARISON: December 05, 2024 TECHNIQUE: 2 views of the chest were obtained. FINDINGS: 2-lead pacemaker is again seen in the left upper chest with leads terminating in the right atrium and right ventricle, unchanged. Again noted is probable cardiac enlargement. There is a moderate left pleural effusion with compressive atelectasis. Lungs are clear otherwise. XR/XR chest 2V IMPRESSION: Moderate left effusion with compressive atelectasis. Pacemaker and cardiomegaly. Electronically signed by: Lexx Suazo MD 12/28/2024 11:32 AM EDT
== END 2024-12-28 11:11 | disposition home or self-care (01) ==
LOC: HO.HMGCX 11:10
PROVIDERS: PCP Nurse Practitioner Family; Visit Provider Internal Medicine
DX: J90 Pleural effusion, not elsewhere classified (principal)
CPT/HCPCS: 71046

== ENCOUNTER → 2024-12-28 11:14 | Outpatient (BNV) | payer BC, SELFPAY | PROVIDERS: PCP Nurse Practitioner Family; Visit Provider Radiology Diagnostic Radiology | DX: J90 Pleural effusion, not elsewhere classified (principal) | CPT/HCPCS: 71046 ==

== ENCOUNTER 2025-01-04 13:46 | Outpatient (REF) | payer BC, SELFPAY ==
[2025-01-07 09:44] LABS: Anti Nuclear Antibody Screen NEGATIVE (NEGATIVE)
[2025-01-10 06:22] LABS: Beta-2 Glycoprotein I Ab IgG <2.0 U/mL (<20.0); Beta-2 Glycoprotein I Ab IgM <2.0 U/mL (<20.0); Beta-2 Glycoprotein I Ab, IgA 5.7 U/mL (<20.0); Phosphatidylserine PT IgM 25 U (<=30)
== END 2025-01-04 13:47 | disposition home or self-care (01) ==
LOC: HO.LAB 13:46
PROVIDERS: PCP Nurse Practitioner Family; Visit Provider Nurse Practitioner
DX: Z01.818 Encounter for other preprocedural examination (principal); Z01.84 Encounter for antibody response examination; Z12.11 Encounter for screening for malignant neoplasm of colon; K59.00 Constipation, unspecified; G47.33 Obstructive sleep apnea (adult) (pediatric); J44.9 Chronic obstructive pulmonary disease, unspecified; I82.402 Acute embolism and thrombosis of unspecified deep veins of left lower extremity; M48.10 Ankylosing hyperostosis [Forestier], site unspecified; J90 Pleural effusion, not elsewhere classified; E66.01 Morbid (severe) obesity due to excess calories; I73.9 Peripheral vascular disease, unspecified; M25.50 Pain in unspecified joint; Z95.0 Presence of cardiac pacemaker; Z68.41 Body mass index [BMI] 40.0-44.9, adult
CPT/HCPCS: 36415; 83516; 85652; 86038; 86140; 86146; 86147; 86200

== ENCOUNTER 2025-01-04 13:46 | Outpatient (AMB) | payer BC, SELFPAY ==
--- NOTE | 2025-01-04 13:47 | A.OFFVIS_ITS ---
Vital Signs 01/04/25 13:50 Height 6 ft 3 in Weight 354 lb 15.108 oz BMI 44.4 BP 168/86 H Blood Pressure Location Lt brachial Position Sitting Pulse 79 Intake Visit Reasons: colo screening/JM PT Intake Note: Marcel presents in the office as a colonoscopy screening and Fabiana old patient. CC: States that he is just due for a colonoscopy. he states that he felt better when he was on the prednisone but he sees Dr. Thomson. He seen him yesterday. 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 He is referred by Catalino Manuel. PMX RACHELE MORBID OBESITY COPD /restrictive lung disease History of DVT Hypertension Sick sinus syndrome- Pacemaker Lumbar spinal stenosis Carotid stenosis Constipation DISH Avascular necrosis of the right hip Chronic pain syndrome Peripheral arterial disease Chronic pleural effusion Rosacea * SURGICAL HISTORY Pacemaker Inguinal hernia repair Hip replacement left COlonoscopy 2013-[place] neg study * ALLERGIES PRAVASTATIN - myalgias CLONIDINE LISINOPRIL LABETALOL * pickrset LABS: Laboratory Tests 08/24/24 11/29/24 11/29/24 14:45 07:58 07:59 WBC 6.4 Hgb 14.4 Hct 43.2 Plt Count 167 D Estimated GFR > 60 Total Bilirubin 0.5 AST 18 ALT 10 Alkaline Phosphatase 94 TSH 2.27 TODAY'S VISIT Has discreet round red dry hyman on forehead and face. DISH, myalgias and fatigue only better with steroids, rash alisson flank left side post herpetic neuragia? He suffers CIC only having BM q5 days. LUQ sharp intermittent pain. He tried magnesium for CIC but broke out in hives. No a lot of fiber in his diet, admittedly, has well water and does not like the taste and has stopped, was drinking a lot of Monster [id number] drinks. He did better when he bought bottled water. He sees Dr. Thomson for pulmonology and he is clear for procedure, apparently he had a pleural effusion that was drained in the emergency department. He also has sleep apnea. He denies any cardiac conditions. However, he does have a history of a lower extremity DVT but is not on any chronic anticoagulation. Apparently he was prone steroids after his pleural effusion and this gave him lost of energy and made him feel better than he ever had in his whole life. 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 While this has nothing to do with his GI presentation I will get a basic pre screening panel to see if this any reason to refer him to Rheumatology. There are no prior problems with anesthesia or sedation. No ID problems. His father had CRC in 80's. We will start him on senna and a fiber supplement for the constipation, and recheck his thyroid studies along with his autoimmune workup. Return office visit in 4 weeks to see how he response to the medication treatment. [facility] Medical History (Updated 01/04/25 @ 14:25 by JUANI Julio) Food poisoning Screening for colon cancer Encounter for screening colonoscopy Elevated fasting blood sugar HTN (hypertension) Pleural effusion Restrictive lung disease Carotid stenosis Salmonella COPD (chronic obstructive pulmonary disease) RACHELE (obstructive sleep apnea) Obesity (BMI 35.0-39.9 without comorbidity) Constipation Spinal stenosis, lumbar SSS (sick sinus syndrome) Atrial flutter DVT (deep venous thrombosis) Aortic root dilatation Sleep apnea Dorsalgia PVD (peripheral vascular disease) HTN (hypertension) Surgical History Hx of colonoscopy Hx of cardiac pacemaker History of inguinal hernia repair History of hip replacement Family History Father Heart problem Pacemaker Colon cancer Mother No problems noted. Maternal Grandmother Cancer Maternal Grandfather Arthritis Brother No problems noted. Daughter No problems noted. Daughter No problems noted. Social History Household Members: Spouse Household Members Other:: cats Housing: House Are you a primary live in caregiver to a significant other at home: No Do you presently have visiting nurse or other home services: No Alcohol intake: former Patient Tobacco Use Status: Former Tobacco user Tobacco use type: Cigar e-Cigarette/Vaping Use: Never Used Second Hand Smoke Exposure: Yes service: No Current occupational status: unemployed and disabled Cognitive needs: No Hearing needs: No Vision needs: No Review of Systems Const Reports body aches, Reports fatigue, Denies fever(s), Denies night sweats, Denies poor appetite, Reports snoring and Denies weight loss ENT Reports Normal hearing present, Denies dental pain, Denies dysphagia, Denies hearing loss, Denies mouth pain, Denies odynophagia, Denies throat swelling, Denies tongue swelling and Reports other (Dentition adequate) Card Reports no additional complaints and Reports dyspnea on exertion Resp Reports dyspnea on exertion and Reports snoring GI Details: Denies abdominal pain, Denies melena, Denies bloating, Denies hematochezia, Reports constipation, Denies GI cramping, Denies dysphagia, Denies excessive flatus, Denies early satiety, Denies heartburn, Denies diarrhea, Denies nausea, Denies odynophagia, Denies vomiting and Denies hematemesis Musc Reports back pain, Reports myalgias and Reports arthralgias Skin/Breast Denies pruritus, Denies lesions, Reports rash (Face and what looks like post herpetic left flank) and Denies jaundice Neuro Reports Normal hearing present and Denies Abnormal speech present Endo Reports fatigue Aller/Immun Denies throat swelling and Denies tongue swelling Physical Exam Vital Signs: Last Vital Signs Pulse 79 01/04/25 13:50 BP 168/86 H 01/04/25 13:50 BMI result Body Mass Index 44.4 Const General: cooperative, no acute distress, well developed and well groomed Nutritional Appearance: well nourished and obese morbidly obese Orientation/consciousness: oriented to person, oriented to place and oriented to time Limitations: No language barrier HEENT Head: Yes normocephalic and Yes atraumatic Eyes General: appearance normal, both eyes and all related structures Pupils: Equal, round and reactive pupils present Neck Neck: Yes normal visual inspection and Yes no lymphadenopathy Thyroid: Thyroid normal Resp Effort & Inspection: normal respiratory effort and able to speak in complete sentences Auscultation: diminished lung sounds on the left in the lower lung ruiz Cardio Rate: regular rate Rhythm: regular rhythm Heart sounds: Normal, physiologic split S2 sound present Peripheral pulses: radial pulses present and posterior tibial pulses present GI Inspection: No distended, Yes Abdominal panniculus present and Yes obesity Palpation (GI): Soft to palpation, nontender, no guarding, not rigid and No hepatosplenomegaly present Percussion: Yes normal to percussion Auscultation: normal bowel sounds Rectal Exam - Male: Yes deferred Skin Other: Discrete red dry flaky slightly raised lesions all over head forehead and face with possible malar rash General skin exam: dry skin, no jaundice, No spider nevi and no striae Rashes: rashes noted (Left flank and on face) Neuro General: oriented to person, oriented to place and oriented to time Cranial nerves: Yes Equal, round and reactive pupils present and Yes Normal hearing present Speech: No Abnormal speech present Extrem General: Yes normal to inspection, No clubbing, No cyanosis, Yes edema (Mild of the ankles) and Yes venous stasis dermatitis Psych Appearance: grossly normal and well kempt Mental Status: mental status grossly normal Speech and movement: Normal speech and movement present Affect: normal affect Attitude: cooperative Thought process: Normal thought process present and not confabulating Thought content: Normal thought content present Insight: Good insight present (Psych) Judgement: Good judgement present (Psych) Assessment & Plan Assessment & Plan (1) Pre-op examination: Code(s): Z01.818 - Encounter for other preprocedural examination Category: Medical (2) COPD (chronic obstructive pulmonary disease): Comment: [id number] PER previous PFT. SPIROMETRY SHOWED THAT THERE IS SOME WORSENING OF THE FLOW VOLUMES. HE TRIED TO USE FLUTICASONE-SALMETEROL 250-50 1 INHALATION B.I.D, BUT AFTER SEEING NO POSITIVE EFFECT HE STOP USING IT SO AT PRESENT HE DOES NOT HAVE ANY BRONCHODILATOR INHALER ON HAND. Code(s): J44.9 - Chronic obstructive pulmonary disease, unspecified Category: Medical (3) Constipation: Comment: Maintain high-fiber diet, Colace, MiraLax Code(s): K59.00 - Constipation, unspecified Category: Medical (4) RACHELE (obstructive sleep apnea): Comment: HISTORY IS POSITIVE FOR OBSTRUCTIVE SLEEP APNEA BUT HE COULD NOT TOLERATE THE CPAP. ONCE AGAIN HE EXPLAINS THAT HE SLEEPS OKAY, HE IS NOT BOTHERED BY SLEEP APNEA. AND HE IS NOT GOING TO TRY USING CPAP. HE IS SLEEPING MOSTLY IN LEFT LATERAL POSITION Code(s): G47.33 - Obstructive sleep apnea (adult) (pediatric) Category: Medical (5) Left leg DVT: Code(s): I82.402 - Acute embolism and thrombosis of unspecified deep veins of left lower extremity Category: Medical (6) Pleural effusion: Comment: PERSISTENT PLEURAL EFFUSION LEFT CHEST, POST INFECTION /PARAPNEUMONIC EFFUSION , STATUS POST THORACENTESES. NEGATIVE FOR MALIGNANCY, FLUID CHARACTERISTICS AREC/W INFLAMMATORY EFFUSION Code(s): J90 - Pleural effusion, not elsewhere classified Category: Medical (7) DISH (diffuse idiopathic skeletal hyperostosis): Code(s): M48.10 - Ankylosing hyperostosis [Forestier], site unspecified Category: Medical (8) Artificial pacemaker: Code(s): Z95.0 - Presence of cardiac pacemaker Category: Medical (9) Morbid obesity: Comment: referring to weight management Code(s): E66.01 - Morbid (severe) obesity due to excess calories Category: Medical Plan Has discreet round red dry hyman on forehead and face. DISH, myalgias and fatigue only better with steroids, rash alisson flank left side post herpetic neuragia? He suffers CIC only having BM q5 days. LUQ sharp intermittent pain. He tried magnesium for CIC but broke out in hives. No a lot of fiber in his diet, admittedly, has well water and does not like the taste and has stopped, was drinking a lot of Monster [id number] drinks. He did better when he bought bottled water. He sees Dr. Thomson for pulmonology and he is clear for procedure, apparently he had a pleural effusion that was drained in the emergency department. He also has sleep apnea. He denies any cardiac conditions. However, he does have a history of a lower extremity DVT but is not on any chronic anticoagulation. Apparently he was prone steroids after his pleural effusion and this gave him lost of energy and made him feel better than he ever had in his whole life. 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 While this has nothing to do with his GI presentation I will get a basic pre screening panel to see if this any reason to refer him to Rheumatology. There are no prior problems with anesthesia or sedation. No ID problems. His father had CRC in 80's. We will start him on senna and a fiber supplement for the constipation, and recheck his thyroid studies along with his autoimmune workup. Return office visit in 4 weeks to see how he response to the medication treatment. Orders: Orders Colonoscopy - GI Use Only Today I82.402 - Acute embolism and thrombosis of unspecified deep veins of left lower extremity, Z01.818 - Encounter for other preprocedural examination GAVIN Reflex Titer and Pattern Today M25.50 - Pain in unspecified joint, M48.10 - Ankylosing hyperostosis [Forestier], site unspecified C Reactive Protein Today M25.50 - Pain in unspecified joint, M48.10 - Ankylosing hyperostosis [Forestier], site unspecified Cyclic Citrullinated Peptide Today M25.50 - Pain in unspecified joint, M48.10 - Ankylosing hyperostosis [Forestier], site unspecified Erythrocyte Sedimentation Rate Today M25.50 - Pain in unspecified joint, M48.10 - Ankylosing hyperostosis [Forestier], site unspecified Phospholipid Ab Panel Today M25.50 - Pain in unspecified joint, M48.10 - Ankylosing hyperostosis [Forestier], site unspecified Medications: New peg 3350-electrolytes 236-22.74-6.74 -5.86 gram (Golytely) until fecal effluent is clear; do not exceed a total volume of 2,000 mL 240 mL PO Q10M 4,000 mL 0RF 1 day Z12.11 - Encounter for screening for malignant neoplasm of colon polyethylene glycol 3350 (Miralax) 17 grams PO DAILY 510 grams 12RF 30 days K59.00 - Constipation, unspecified bisacodyl (Dulcolax (bisacodyl)) 10 mg (2 x 5 mg) PO BEDTIME 4 tabs 0RF 2 days psyllium husk (Fiber (psyllium husk)) 1.04 grams (2 x 0.52 gram) PO DAILY 60 caps 6RF I73.9 - Peripheral vascular disease, unspecified, K59.00 - Constipation, unspecified Coding Level of Care Code New Pt Level 3 (49689) Diagnoses Pre-op examination Z01.818 COPD (chronic obstructive pulmonary disease) J44.9 Constipation K59.00 RACHELE (obstructive sleep apnea) G47.33 Left leg DVT I82.402 Pleural effusion J90 DISH (diffuse idiopathic skeletal hyperostosis) M48.10 Artificial pacemaker Z95.0 Morbid obesity E66.01
[2025-01-04 13:50] VITALS: BP 168/86; PULSE 79; BMI 44.4
== END 2025-01-04 14:41 | disposition home or self-care (01) ==
LOC: HO.HGI 13:47
PROVIDERS: PCP Nurse Practitioner Family; Visit Provider Nurse Practitioner
DX: Z01.818 Encounter for other preprocedural examination (principal); Z12.11 Encounter for screening for malignant neoplasm of colon; K59.00 Constipation, unspecified; Z95.0 Presence of cardiac pacemaker; I82.402 Acute embolism and thrombosis of unspecified deep veins of left lower extremity
CPT/HCPCS: S0285

== ENCOUNTER 2025-01-31 11:21 | Outpatient (AMB) | payer BC, SELFPAY ==
--- NOTE | 2025-01-31 11:26 | A.OFFPC_ITS ---
Vital Signs 01/31/25 11:27 01/31/25 12:04 Height 6 ft 3 in Weight 360 lb BMI 45.0 BP 140/98 H 132/98 H Blood Pressure Location Lt brachial Rt brachial Position Sitting Sitting Respiration 18 Pulse 82 Pulse Source Palpation Pulse Oximetry (%) 97 Oxygen Delivery Method Room Air Intake Visit Reasons: 6m f/u Director Of Land Acquisition Required: No Accompanied by: Self / Same As Patient Allergies pravastatin (PRAVASTATIN) Allergy (Intermediate, Verified 01/04/25 13:50) RASH clonidine Allergy (Unknown, Verified 01/04/25 13:50) facial rash lisinopril Allergy (Unknown, Verified 01/04/25 13:50) achy, back pain, achy codeine Allergy (Verified 01/31/25 11:29) rash labetalol Adverse Reaction (Unknown, Verified 01/04/25 13:50) achy Seasonal Allergy (Unknown, Uncoded 01/04/25 13:50) unknown Tobacco use date assessed: 01/31/25 Fall risk assessment: No Falls in past year Last assessed Fall Risk: 01/31/25 Dental Screening Dental Screen Date: 01/31/25 Did you have a dental visit in the last 12 months?: Yes Did you have a dental problem in the last 6 months where you did not have access to dental care?: No Was dental information given to patient?: Patient has dentist HPI 6m f/u HPI Details Chief Complaint The patient presents for a follow-up regarding hypertension management. History of Present Illness The patient is a 64-year-old male presenting with hypertension management. He has discontinued all antihypertensive medications, including irbesartan, Lasix, and amlodipine, for reasons not specified. He previously monitored his blood pressure at home and intends to resume this practice, providing myself with future readings. The patient reports increased dyspnea, with a recent x-ray indicating a pleural effusion. He denies chest pain and maintains adequate oxygen saturation levels. A consultation with his industrial relations manager is planned to discuss the possibility of a thoracentesis. Social History Health Maintenance Review of Systems - Cardiovascular: Denies chest pain, diz ziness, SMITH, Blurred vision - Respiratory: Reports increased dyspnea Physical Exam General: Cooperative, healthy appearing, comfortable, no acute distress and well developed Orientation: Patient oriented x3 Limitations: No limitations Head: Normal to inspection Ears: Hearing grossly normal bilaterally Nose: Normal external nose present Face and sinus: Normal facial exam Eyes: Appearance normal, both eyes and all related structures Neck: Normal visual inspection and Yes full ROM Respiratory: Slightly diminished breath sounds, mostly diminished to the left base, otherwise moving air everywhere else. Able to speak in complete sentences. Cardiovascular: Regular rate and rhythm. Normal S1 and S2. Edema noted. GI: Normal to inspection. Soft to palpation and nontender Skin: No rashes or lesions noted Neuro: Patient oriented x3 Extremities: edema Results - Imaging: Recent x-ray shows pleural ef fusion Plan 1. Hypertension The patient has stopped all antihypertensive medications, including irbesartan, Lasix, and amlodipine. The plan includes restarting irbesartan with hydrochlorothiazide, home blood pressure monitoring, and sending readings to my. [facility] Follow-up labs will be done, and the patient should follow up with his roll icer machine. 2. Pleural Effusion The patient reports increased dyspnea, with a recent x-ray confirming pleural effusion. A consultation with the patient's industrial relations manager is planned to consider a thoracentesis. Discussion Notes During the visit, I discussed with the patient the importance of restarting his antihypertensive medications, specifically irbesartan with hydrochlorothiazide, and the need for regular blood pressure monitoring at home. I also explained the findings of the recent x-ray showing pleural effusion and the plan to consult with his industrial relations manager regarding a potential thoracentesis. The patient was advised to follow up with his roll icer machine and to have labs done in about two weeks to assess his blood pressure control. Patient Instructions - Restart irbesartan with hydrochlorothi azide as prescribed. - Monitor blood pressure at home and sen d readings to myself. - Follow up with your roll icer machine. - Schedule labs in about two weekst. [facility] Medical History Food poisoning Screening for colon cancer Encounter for screening colonoscopy Elevated fasting blood sugar HTN (hypertension) Pleural effusion Restrictive lung disease Carotid stenosis Salmonella COPD (chronic obstructive pulmonary disease) RACHELE (obstructive sleep apnea) Obesity (BMI 35.0-39.9 without comorbidity) Constipation Spinal stenosis, lumbar SSS (sick sinus syndrome) Atrial flutter DVT (deep venous thrombosis) Aortic root dilatation Sleep apnea Dorsalgia PVD (peripheral vascular disease) HTN (hypertension) Surgical History Hx of colonoscopy Hx of cardiac pacemaker History of inguinal hernia repair History of hip replacement Family History Father Heart problem Pacemaker Colon cancer Mother No problems noted. Maternal Grandmother Cancer Maternal Grandfather Arthritis Brother No problems noted. Daughter No problems noted. Daughter No problems noted. Social History Household Members: Spouse Household Members Other:: cats Housing: House Are you a primary rn wound care to a significant other at home: No Do you presently have visiting nurse or other home services: No Alcohol intake: former Patient Tobacco Use Status: Former Tobacco user Tobacco use type: Cigar e-Cigarette/Vaping Use: Never Used Second Hand Smoke Exposure: Yes service: No Current occupational status: unemployed and disabled Cognitive needs: No Hearing needs: No Vision needs: No Questionnaire PHQ-9 Over the last 2 weeks, how often have you been bothered by any of the following problems? 1. Little interest or pleasure in doing things: not at all 2. Feeling down, depressed, or hopeless: not at all 3. Trouble falling or staying asleep, or sleeping too much: not at all 4. Feeling tired or having little energy: not at all 5. Poor appetite or overeating: not at all 6. Feeling bad about yourself - or that you are a failure or have let yourself or your family down: not at all 7. Trouble concentrating on things, such as reading the newspaper or watching television: not at all 8. Moving or speaking so slowly that other people could have noticed. Or the opposite - being so fidgety or restless that you have been moving around a lot more than usual: not at all Depression Screening Interpretation: Negative Depression Screening Done: Yes 56951 - PHQ-9 Billing: Yes Source: Developed by Drs. Ronny Allen, Lyla Elizabeth, Oneal Arango and colleagues, with an educational omar from [employer]. Thrive Questionnaire Date Thrive assessed: 07/29/24 I am a: Patient What is your living situation today?: I have a steady place to live Within the past 12 months, did the food you bought not last and you didn't have the money to get more?: Never true Within the past 12 months, did you worry whether your food would run out before you got money to buy more?: Never true Do you have trouble paying for medicines?: No Do you have trouble getting transportation to medical appointments?: No Do you have trouble paying your heating and electricity bill?: No Do you have trouble taking care of your child, family member or friend?: No Do you have trouble with day-to-day activities such as bathing, preparing meals, shopping, managing finances, etc.?: No Are you currently unemployed and looking for a job?: No Are you interested in more education?: No Please select the resources that you would like help with: None Currently or been in a relationship where the following occur: No concerns reported THRIVE Score: 0 WOOD-7 AMB Questionnaire WOOD-7 Date WOOD - 7 assessed: 01/31/25 Feeling nervous, anxious, or on edge: 0 = Not at all Not being able to stop or control worryin = Not at all Worrying too much about different things: 0 = Not at all Trouble relaxin = Not at all Being so restless that it is hard to sit still: 0 = Not at all Becoming easily annoyed or irritable: 0 = Not at all Feeling afraid as if something awful might happen: 0 = Not at all Total WOOD-7 score (0-4 normal; 5-9 mild; 10-14 moderate; 15-21 severe): 0 Source: Developed by Drs. Ronny Allen, Lyla Elizabeth, Oneal Arango and colleagues, with an educational omar from [employer]. WOOD-7 Assessment Billing WOOD-7 Assessment Tool: WOOD-7 Assessment 27111 Physical exam (Primary Care) Vital Signs: Last Vital Signs Pulse 82 01/31/25 11:27 Resp 18 01/31/25 11:27 BP 140/98 H 01/31/25 11:27 BMI result Body Mass Index 45.0 Tobacco/Smoking Status: Tobacco use Status Tobacco use date assessed 01/31/25 01/31/25 11:33 Patient Tobacco Use Status Former Tobacco user 01/31/25 11:33 Tobacco use type Cigar 01/31/25 11:33 e-Cigarette/Vaping Use Never Used 01/31/25 11:33 Depression Screening Interpretation: Negative Thrive Assessment: Date of Thrive Assessment Date Thrive assessed 07/29/24 01/31/25 11:33 Currently or been in a relationship where the following occur: No concerns reported Coding Level of Care Code Est Pt Level 3 (24020) Diagnoses HTN (hypertension) I10 Additional Codes WOOD-7 Assessment Billing - WOOD-7 Assessment Tool: WOOD-7 Assessment 46899 ([id number]) PHQ-9 - 96169 - PHQ-9 Billing: Yes ([id number]) Assessment & Plan Assessment & Plan (1) HTN (hypertension): Code(s): I10 - Essential (primary) hypertension Category: Medical Plan . Orders: Orders Comprehensive [place]. Panel Fast Today I10 - Essential (primary) hypertension Complete Blood Count Auto Diff Today I10 - Essential (primary) hypertension TSH reflex Free T4 Today I10 - Essential (primary) hypertension UA CC w/rflx Micro + Cult Today I10 - Essential (primary) hypertension Lipid Panel Today I10 - Essential (primary) hypertension Medications: New irbesartan-hydrochlorothiazide 150-12.5 mg 1 tab PO DAILY 30 tabs 3RF 30 days
[2025-01-31 11:27] VITALS: BP 140/98; PULSE 82; RESP 18; O2SAT 97; BMI 45.0
[2025-01-31 12:04] VITALS: BP 132/98
== END 2025-01-31 12:23 | disposition home or self-care (01) ==
LOC: HO.HMCC 11:22
PROVIDERS: PCP Nurse Practitioner Family; Visit Provider Nurse Practitioner Family
DX: I10 Essential (primary) hypertension (principal)

== ENCOUNTER → 2025-01-31 11:21 | Outpatient (BNVA) | payer BC, SELFPAY | PROVIDERS: PCP Nurse Practitioner Family; Visit Provider Nurse Practitioner Family | DX: I10 Essential (primary) hypertension (principal); J90 Pleural effusion, not elsewhere classified; Z79.899 Other long term (current) drug therapy | CPT/HCPCS: 96127 ==

== ENCOUNTER 2025-02-08 12:24 | Outpatient (AMB) | payer BC, SELFPAY ==
--- NOTE | 2025-02-08 12:35 | MHC.OFFVIS ---
Vital Signs 02/08/25 12:40 Height 6 ft 3 in Weight 360 lb 3.765 oz BMI 45.0 BP 142/75 H Blood Pressure Location Lt brachial Position Sitting Pulse 75 Intake Visit Reasons: CIC Intake Note: Marcel presents to in office follow up of CIC. CC: Patient states that he takes Miralax for constipation and it works well. He also reports that he has noticed recently he feels like the saliva and food is going down the wrong pipe . He states that his PCP put him on Irbersartan and it's bringing his BP down but he is getting neck pains. Resource Management Specialist Required: No Accompanied by: Self / Same As Patient Allergies pravastatin (PRAVASTATIN) Allergy (Intermediate, Verified 02/09/25 14:55) RASH clonidine Allergy (Unknown, Verified 02/09/25 14:55) facial rash lisinopril Allergy (Unknown, Verified 02/09/25 14:55) achy, back pain, achy codeine Allergy (Verified 02/09/25 14:55) rash labetalol Adverse Reaction (Unknown, Verified 02/09/25 14:55) achy Seasonal Allergy (Unknown, Uncoded 02/09/25 14:55) unknown HPI HPI CIC: Details: Assessment & Plan (1) Pre-op examination: Code(s): Z01.818 - Encounter for other preprocedural examination Category: Medical (2) COPD (chronic obstructive pulmonary disease): Comment: [id number] PER previous PFT. SPIROMETRY SHOWED THAT THERE IS SOME WORSENING OF THE FLOW VOLUMES. HE TRIED TO USE FLUTICASONE-SALMETEROL 250-50 1 INHALATION B.I.D, BUT AFTER SEEING NO POSITIVE EFFECT HE STOP USING IT SO AT PRESENT HE DOES NOT HAVE ANY BRONCHODILATOR INHALER ON HAND. Code(s): J44.9 - Chronic obstructive pulmonary disease, unspecified Category: Medical (3) Constipation: Comment: Maintain high-fiber diet, Colace, MiraLax Code(s): K59.00 - Constipation, unspecified Category: Medical (4) RACHELE (obstructive sleep apnea): Comment: HISTORY IS POSITIVE FOR OBSTRUCTIVE SLEEP APNEA BUT HE COULD NOT TOLERATE THE CPAP. ONCE AGAIN HE EXPLAINS THAT HE SLEEPS OKAY, HE IS NOT BOTHERED BY SLEEP APNEA. AND HE IS NOT GOING TO TRY USING CPAP. HE IS SLEEPING MOSTLY IN LEFT LATERAL POSITION Code(s): G47.33 - Obstructive sleep apnea (adult) (pediatric) Category: Medical (5) Left leg DVT: Code(s): I82.402 - Acute embolism and thrombosis of unspecified deep veins of left lower extremity Category: Medical (6) Pleural effusion: Comment: PERSISTENT PLEURAL EFFUSION LEFT CHEST, POST INFECTION /PARAPNEUMONIC EFFUSION , STATUS POST THORACENTESES. NEGATIVE FOR MALIGNANCY, FLUID CHARACTERISTICS AREC/W INFLAMMATORY EFFUSION Code(s): J90 - Pleural effusion, not elsewhere classified Category: Medical (7) DISH (diffuse idiopathic skeletal hyperostosis): Code(s): M48.10 - Ankylosing hyperostosis [Forestier], site unspecified Category: Medical (8) Artificial pacemaker: Code(s): Z95.0 - Presence of cardiac pacemaker Category: Medical (9) Morbid obesity: Comment: referring to weight management Code(s): E66.01 - Morbid (severe) obesity due to excess calories Category: Medical Plan Has discreet round red dry hyman on forehead and face. DISH, myalgias and fatigue only better with steroids, rash alisson flank left side post herpetic neuragia? He suffers CIC only having BM q5 days. LUQ sharp intermittent pain. He tried magnesium for CIC but broke out in hives. No a lot of fiber in his diet, admittedly, has well water and does not like the taste and has stopped, was drinking a lot of Monster [id number] drinks. He did better when he bought bottled water. He sees Dr. Thomson for pulmonology and he is clear for procedure, apparently he had a pleural effusion that was drained in the emergency department. He also has sleep apnea. He denies any cardiac conditions. However, he does have a history of a lower extremity DVT but is not on any chronic anticoagulation. Apparently he was put on steroids after his pleural effusion and this gave him lost of energy and made him feel better than he ever had in his whole life. 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 While this has nothing to do with his GI presentation I will get a basic pre screening panel to see if this any reason to refer him to Rheumatology. There are no prior problems with anesthesia or sedation. No ID problems. His father had CRC in 80's. We will start him on senna and a fiber supplement for the constipation, and recheck his thyroid studies along with his autoimmune workup. Return office visit in 4 weeks to see how he response to the medication treatment. Orders: Orders Colonoscopy - GI Use Only Today I82.402 - Acute embolism and thrombosis of unspecified deep veins of left lower extremity, Z01.818 - Encounter for other preprocedural examination GAVIN Reflex Titer and Pattern Today M25.50 - Pain in unspecified joint, M48.10 - Ankylosing hyperostosis [Forestier], site unspecified C Reactive Protein Today M25.50 - Pain in unspecified joint, M48.10 - Ankylosing hyperostosis [Forestier], site unspecified Cyclic Citrullinated Peptide Today M25.50 - Pain in unspecified joint, M48.10 - Ankylosing hyperostosis [Forestier], site unspecified Erythrocyte Sedimentation Rate Today M25.50 - Pain in unspecified joint, M48.10 - Ankylosing hyperostosis [Forestier], site unspecified Phospholipid Ab Panel Today M25.50 - Pain in unspecified joint, M48.10 - Ankylosing hyperostosis [Forestier], site unspecified Medications: New peg 3350-electrolytes 236-22.74-6.74 -5.86 gram (Golytely) until fecal effluent is clear; do not exceed a total volume of 2,000 mL 240 mL PO Q10M 4,000 mL 0RF 1 day Z12.11 - Encounter for screening for malignant neoplasm of colon polyethylene glycol 3350 (Miralax) 17 grams PO DAILY 510 grams 12RF 30 days K59.00 - Constipation, unspecified bisacodyl (Dulcolax (bisacodyl)) 10 mg (2 x 5 mg) PO BEDTIME 4 tabs 0RF 2 days psyllium husk (Fiber (psyllium husk)) 1.04 grams (2 x 0.52 gram) PO DAILY 60 caps 6RF I73.9 - Peripheral vascular disease, unspecified, K59.00 - Constipation, unspecified LABS: Laboratory Tests 01/04/25 15:32 ESR 48 H C-Reactive Protein 1.20 H Cycl Citrul Peptide IgG <16 GVAIN Screen NEGATIVE Phospholipid Ab Comment negative thyroid studies were not obtained COLONOSCOPY BIOPSY TODAY'S VISIT [facility] Medical History Food poisoning Screening for colon cancer Encounter for screening colonoscopy Elevated fasting blood sugar HTN (hypertension) Pleural effusion Restrictive lung disease Carotid stenosis Salmonella COPD (chronic obstructive pulmonary disease) RACHELE (obstructive sleep apnea) Obesity (BMI 35.0-39.9 without comorbidity) Constipation Spinal stenosis, lumbar SSS (sick sinus syndrome) Atrial flutter DVT (deep venous thrombosis) Aortic root dilatation Sleep apnea Dorsalgia PVD (peripheral vascular disease) HTN (hypertension) Surgical History Hx of colonoscopy Hx of cardiac pacemaker History of inguinal hernia repair History of hip replacement Family History Father Heart problem Pacemaker Colon cancer Mother No problems noted. Maternal Grandmother Cancer Maternal Grandfather Arthritis Brother No problems noted. Daughter No problems noted. Daughter No problems noted. Social History Household Members: Spouse Household Members Other:: cats Housing: House Are you a primary home care and home health aides teacher to a significant other at home: No Do you presently have visiting nurse or other home services: No Alcohol intake: former Patient Tobacco Use Status: Former Tobacco user Tobacco use type: Cigar e-Cigarette/Vaping Use: Never Used Second Hand Smoke Exposure: Yes service: No Current occupational status: unemployed and disabled Cognitive needs: No Hearing needs: No Vision needs: No Review of Systems Const Reports fatigue, Denies fever(s), Denies night sweats, Denies poor appetite and Denies weight loss ENT Reports Normal hearing present, Denies dental pain, Denies dysphagia, Denies hearing loss, Denies mouth pain, Denies odynophagia, Denies throat swelling, Denies tongue swelling and Reports other (Dentition adequate) Card Reports no additional complaints Resp Reports no additional complaints GI Details: Denies abdominal pain, Denies melena, Denies bloating, Denies hematochezia, Reports constipation, Denies GI cramping, Denies dysphagia, Denies excessive flatus, Denies early satiety, Denies heartburn, Denies diarrhea, Denies nausea, Denies odynophagia, Denies vomiting and Denies hematemesis Musc Reports back pain, Reports myalgias, Reports arthralgias, Reports joint swelling and Reports stiffness Skin/Breast Denies pruritus, Denies lesions, Denies rash and Denies jaundice Neuro Reports Normal hearing present and Denies Abnormal speech present Endo Reports fatigue Aller/Immun Denies throat swelling and Denies tongue swelling Physical Exam Vital Signs: Last Vital Signs Pulse 75 02/08/25 12:40 BP 142/75 H 02/08/25 12:40 BMI result Body Mass Index 45.0 Const General: cooperative, no acute distress, well developed and well groomed Nutritional Appearance: well nourished and obese Orientation/consciousness: oriented to person, oriented to place and oriented to time Limitations: No language barrier HEENT Head: Yes normocephalic and Yes atraumatic Eyes General: appearance normal, both eyes and all related structures Pupils: Equal, round and reactive pupils present Neck Neck: Yes normal visual inspection and Yes no lymphadenopathy Thyroid: Thyroid normal Resp Effort & Inspection: normal respiratory effort and able to speak in complete sentences Auscultation: clear to auscultation bilaterally Cardio Rate: regular rate Rhythm: regular rhythm Heart sounds: Normal, physiologic split S2 sound present Peripheral pulses: radial pulses present and posterior tibial pulses present GI Inspection: No distended, Yes Abdominal panniculus present and Yes obesity Palpation (GI): Soft to palpation, nontender, no guarding, not rigid and No hepatosplenomegaly present Percussion: Yes normal to percussion Auscultation: normal bowel sounds Rectal Exam - Male: Yes deferred Skin General skin exam: no rashes or lesions noted, turgor normal, skin not dry, no jaundice, No spider nevi and no striae Rashes: no rashes Nails: normal Neuro General: oriented to person, oriented to place and oriented to time Cranial nerves: Yes Equal, round and reactive pupils present and Yes Normal hearing present Speech: No Abnormal speech present Extrem General: Yes normal to inspection, No clubbing, No cyanosis and No edema Psych Appearance: grossly normal and well kempt Mental Status: mental status grossly normal Speech and movement: Normal speech and movement present Affect: normal affect Attitude: cooperative Thought process: Normal thought process present and not confabulating Thought content: Normal thought content present Insight: Good insight present (Psych) Judgement: Good judgement present (Psych) Assessment & Plan Assessment & Plan (1) Constipation: Comment: Maintain high-fiber diet, Colace, MiraLax Code(s): K59.00 - Constipation, unspecified Category: Medical (2) Elevated erythrocyte sedimentation rate: Code(s): R70.0 - Elevated erythrocyte sedimentation rate Category: Medical (3) Elevated C-reactive protein (CRP): Code(s): R79.82 - Elevated C-reactive protein (CRP) Category: Medical (4) DISH (diffuse idiopathic skeletal hyperostosis): Code(s): M48.10 - Ankylosing hyperostosis [Forestier], site unspecified Category: Medical (5) Arthralgia: Code(s): M25.50 - Pain in unspecified joint Category: Medical Plan - The patient is a 64-year-old male here for follow-up after initially being seen for screening colonoscopy but presenting with multiple widespread complaints. One was constipation and we started senna. These included abdominal and musculoskeletal complaints. I noticed that he had elevated inflammatory markers and as a courtesy added a basic rheumatoid arthritis workup via blood tests. CCP and Rh were negative. - Recent initiation of an irbesartan and hydrochlorothiazide combination, followed by increased body aches mainly in the back and shoulders. - Temporary alleviation of symptoms upon skipping medication doses. - Elevated inflammatory markers found incidentally. No prior rheumatology evaluation for suspicion of inflammatory arthritis. I strongly encouraged him to see Rheumatology as there are many types of arthritis or inflammatory diseases that require further workup that would be beyond my scope of general knowledge. He agrees and I gave him a rheumatology referral. - Prior positive response to prednisone suggested previously prescribed for acute pulmonary condition. While on prednisone he found that his aches and pains were better and so was his energy level. He feels that the senna works well for his constipation. At this point I can see him after his colonoscopy. Orders: Referrals Rheumatology Referral M25.50 - Pain in unspecified joint, M48.10 - Ankylosing hyperostosis [Forestier], site unspecified, R70.0 - Elevated erythrocyte sedimentation rate, R79.82 - Elevated C-reactive protein (CRP) Coding Level of Care Code Est Pt Level 3 (68355) Diagnoses Constipation K59.00 Elevated erythrocyte sedimentation rate R70.0 Elevated C-reactive protein (CRP) R79.82 DISH (diffuse idiopathic skeletal hyperostosis) M48.10 Arthralgia M25.50
[2025-02-08 12:40] VITALS: BP 142/75; PULSE 75; BMI 45.0
== END 2025-02-08 13:19 | disposition home or self-care (01) ==
LOC: HO.HGI 12:24
PROVIDERS: PCP Nurse Practitioner Family; Visit Provider Nurse Practitioner
DX: K59.00 Constipation, unspecified (principal); R70.0 Elevated erythrocyte sedimentation rate; R79.82 Elevated C-reactive protein (CRP); M48.10 Ankylosing hyperostosis [Forestier], site unspecified; M25.50 Pain in unspecified joint
CPT/HCPCS: 99213

== ENCOUNTER 2025-02-09 14:35 | Outpatient (AMB) | payer BC, SELFPAY ==
[2025-02-09 14:46] VITALS: BP 142/80; PULSE 86; O2SAT 95; BMI 45.0
--- NOTE | 2025-02-09 14:46 | MHC.OFFVIS ---
Vital Signs 02/09/25 14:46 Height 6 ft 3 in Weight 360 lb 7.292 oz BMI 45.0 BP 142/80 H Blood Pressure Location Lt brachial Position Sitting Pulse 86 Pulse Source Pulse Oximeter Pulse Oximetry (%) 95 Oxygen Delivery Method Room Air Intake Visit Reasons: COPD Intake Note: pt is here for follow up and he is not feeling good, coughing, shortness of breath, when taking deep breath he coughed up some liquid phlegm again. Business Services Manager Required: No Allergies pravastatin (PRAVASTATIN) Allergy (Intermediate, Verified 02/09/25 14:55) RASH clonidine Allergy (Unknown, Verified 02/09/25 14:55) facial rash lisinopril Allergy (Unknown, Verified 02/09/25 14:55) achy, back pain, achy codeine Allergy (Verified 02/09/25 14:55) rash labetalol Adverse Reaction (Unknown, Verified 02/09/25 14:55) achy Seasonal Allergy (Unknown, Uncoded 02/09/25 14:55) unknown HPI HPI COPD: Details: VIKTORIYA IS 64 YEARS OLD GENTLEMAN WITH MORBID OBESITY. HE HAD PLEURAL EFFUSION ON THE LEFT SIDE. AND UNDERWENT THORACENTESES ON 11/29/2024, 600 ML OF DARK YELLOW FLUID ASPIRATED. THE FLUID ANALYSIS WAS NEGATIVE, FOR NEOPLASTIC CELLS HAD HIGH PROTEIN CONTENT, SUGGESTING POST PNEUMONIC EFFUSION. HE WAS SEEN BY ME FOR FURTHER PLANS. I REPEATED CHEST X-RAY ON 12/28 , WHICH SHOWED RESIDUAL EFFUSION . LEFT BASE STEPHANI COMES BACK FOR FOLLOW-UP TODAY COMPLAINS OF NONSPECIFIC DISCOMFORT OVER THE LEFT CHEST AND ALSO CLAIMS THAT HE IS GETTING MORE FREQUENT COUGH, WITH SHORTNESS OF BREATH ON WALKING AROUND. ALL ALONG HE HAS HAD NO FEVER OR CHILLS [facility] Medical History Food poisoning Screening for colon cancer Encounter for screening colonoscopy Elevated fasting blood sugar HTN (hypertension) Pleural effusion Restrictive lung disease Carotid stenosis Salmonella COPD (chronic obstructive pulmonary disease) RACHELE (obstructive sleep apnea) Obesity (BMI 35.0-39.9 without comorbidity) Constipation Spinal stenosis, lumbar SSS (sick sinus syndrome) Atrial flutter DVT (deep venous thrombosis) Aortic root dilatation Sleep apnea Dorsalgia PVD (peripheral vascular disease) HTN (hypertension) Surgical History Hx of colonoscopy Hx of cardiac pacemaker History of inguinal hernia repair History of hip replacement Family History Father Heart problem Pacemaker Colon cancer Mother No problems noted. Maternal Grandmother Cancer Maternal Grandfather Arthritis Brother No problems noted. Daughter No problems noted. Daughter No problems noted. Social History Household Members: Spouse Household Members Other:: cats Housing: House Are you a primary patient care manager to a significant other at home: No Do you presently have visiting nurse or other home services: No Alcohol intake: former Patient Tobacco Use Status: Former Tobacco user Tobacco use type: Cigar e-Cigarette/Vaping Use: Never Used Second Hand Smoke Exposure: Yes service: No Current occupational status: unemployed and disabled Cognitive needs: No Hearing needs: No Vision needs: No Review of Systems Const All systems reviewed & are unremarkable except as noted in HPI and below Eyes Reports no additional complaints ENT Reports no additional complaints Card Denies chest pain, Denies irregular heart rhythm and Denies leg edema Resp Reports as per HPI GI Reports no additional complaints Reports no additional complaints Musc Reports back pain (mild) Skin/Breast Reports system reviewed and no additional complaints, except as documented Neuro Reports no additional complaints Psych Reports no additional complaints Physical Exam Vital Signs: Last Vital Signs Pulse 86 02/09/25 14:46 BP 142/80 H 02/09/25 14:46 Pulse Ox 95 02/09/25 14:46 Oxygen Delivery Method Room Air 02/09/25 14:46 BMI result Body Mass Index 45.0 He is grossly obese with a round face and very fat neck. Const General: comfortable, no acute distress, alert and awake Orientation/consciousness: patient oriented x3 HEENT Head: Yes normal to inspection General nose exam: No nasal polyps present and No nasal discharge present Face and sinus: Yes sinuses nontender Mouth: oropharynx abnormals (Oropharynx is crowded with Mallampati class 3) Throat: Yes posterior oropharynx normal Eyes General: appearance normal, both eyes and all related structures Neck Neck: Yes normal visual inspection, Yes no lymphadenopathy, Yes trachea midline and Yes no JVD Thyroid: Thyroid normal Chest Other: THERE IS DULLNESS TO PERCUSSION OVER THE LOWER HALF OF THE LEFT CHEST. Chest palpation & inspection: normal inspection of the chest, normal palpation of entire chest wall and no tenderness Resp Other: Percussion note is resonant but it is difficult to do percussion over the basilar areas. HOWEVER THERE IS DULLNESS OVER THE LEFT BASE. The breath sounds are generally diminished over both basilar areas. I do not hear any crepitations or rhonchi . Cardio Palpation: normal PMI Rate: regular rate Rhythm: regular rhythm Heart sounds: no gallops and no murmurs Peripheral pulses: Peripheral pulses 2+ throughout GI Palpation (GI): Soft to palpation, nontender, No hepatosplenomegaly present, no masses and Other GI palpation findings present (Abdomen is obese and protuberant) Auscultation: normal bowel sounds Back/Spine/Pelvis Thoracic/Lumbar Spine: thoracic and lumbar spine normal to inspection and thoraco-lumbar ROM limited Skin Other: HE HAS SCABBED LESIONS OVER LEFT LOWER THORACIC AREA. General skin exam: no rashes or lesions noted and dry skin (over the legs) Neuro General: patient oriented x3 and no focal motor deficits Cranial nerves: Yes CN's II-XII intact bilaterally Extrem General: Yes normal to inspection, Yes no clubbing, cyanosis or edema, Yes no calf tenderness and Yes venous stasis dermatitis Psych Appearance: grossly normal and well kempt Speech and movement: Normal speech and movement present Results Reviewed Results Reviewed: CHEST C XRAY 12.28.2024 XR/XR chest 2V IMPRESSION: Moderate left effusion with compressive atelectasis. Pacemaker and cardiomegaly. Electronically signed by: Lexx Suazo MD 12/28/2024 11:32 AM EDT Assessment & Plan Assessment & Plan (1) Pleural effusion: Comment: PERSISTENT PLEURAL EFFUSION LEFT CHEST, POST INFECTION /PARAPNEUMONIC EFFUSION , STATUS POST THORACENTESES. NEGATIVE FOR MALIGNANCY, FLUID CHARACTERISTICS AREC/W INFLAMMATORY EFFUSION Code(s): J90 - Pleural effusion, not elsewhere classified Category: Medical Plan: THERE IS PERSISTENCE OF RESIDUAL FLUID , WITH POSSIBLE PLEURAL THICKENING , AND LOCULATION OF THE FLUID. I THINK HE HAS DEVELOPED EMPYEMA WITH PLEURAL THICKENING CT SCAN OF THE CHEST IS ORDERED. AND DEPENDING UPON THE FINDINGS HE WILL NEED REFERRAL FOR THORACIC SURGICAL EVALUATION AND TREATMENT. I HAVE SHOWN HIM THE PICTURES OF THE X-RAYS WELL SHOWN HIM THE ANATOMY OF THE LUNGS AND PLEURAL SPACE. I TOLD HIM THAT THE NEXT STEP IS GOING TO BE REFERRAL TO THORACIC SURGERY TO CONSIDER THORACOSTOMY AND POSSIBLE FLUID DRAINAGE WITH DECORTICATION. (2) Restrictive lung disease: Comment: BECAUSE OF HIS SUPER MORBID OBESITY HE HAS RESTRICTIVE LUNG DISEASE. DOES HAVE MILD SHORTNESS OF BREATH ON WALKING UP HILL OR FAST . Code(s): J98.4 - Other disorders of lung Category: Medical Plan: WEIGHT LOSS IS DESIRABLE BUT HE IS NOT. GOING TO BE ABLE TO DO IT REINFORCED THAT HE SHOULD DO DEEP BREATHING EXERCISES BUT 3 TIMES A DAY. (3) COPD (chronic obstructive pulmonary disease): Comment: [id number] PER previous PFT. SPIROMETRY SHOWED THAT THERE IS SOME WORSENING OF THE FLOW VOLUMES. HE TRIED TO USE FLUTICASONE-SALMETEROL 250-50 1 INHALATION B.I.D, BUT AFTER SEEING NO POSITIVE EFFECT HE STOPPED USING IT SO AT PRESENT HE DOES NOT HAVE ANY BRONCHODILATOR INHALER ON HAND. Code(s): J44.9 - Chronic obstructive pulmonary disease, unspecified Category: Medical Plan: MAY USE ALBUTEROL HFA 2 PUFFS Q 4-6 HOURS P.R.N. (4) RACHELE (obstructive sleep apnea): Comment: HISTORY IS POSITIVE FOR OBSTRUCTIVE SLEEP APNEA BUT HE COULD NOT TOLERATE THE CPAP. ONCE AGAIN HE EXPLAINS THAT HE SLEEPS OKAY, HE IS NOT BOTHERED BY SLEEP APNEA. AND HE IS NOT GOING TO TRY USING CPAP. Code(s): G47.33 - Obstructive sleep apnea (adult) (pediatric) Category: Medical Plan: I REINFORCED THAT HE SHOULD TRY TO SLEEP IN LATERAL POSITION. HE NEEDS TO LOSE WEIGHT WHICH IS SOMEWHAT DIFFICULT FOR HIM AT PRESENT. Orders: Orders CT chest wo IV con Today J90 - Pleural effusion, not elsewhere classified, J98.4 - Other disorders of lung Coding Level of Care Code Est Pt Level 3 (93951) Diagnoses Pleural effusion J90 Restrictive lung disease J98.4 COPD (chronic obstructive pulmonary disease) J44.9 RACHELE (obstructive sleep apnea) G47.33
== END 2025-02-09 15:26 | disposition home or self-care (01) ==
PROVIDERS: PCP Nurse Practitioner Family; Visit Provider Internal Medicine
DX: J90 Pleural effusion, not elsewhere classified (principal); J98.4 Other disorders of lung; J44.9 Chronic obstructive pulmonary disease, unspecified; G47.33 Obstructive sleep apnea (adult) (pediatric)
CPT/HCPCS: 99213

== ENCOUNTER 2025-02-17 16:06 | Outpatient (REF) | payer BC, SELFPAY ==
--- NOTE | ~2025-02-17 | CT_ITS ---
EXAMINATION: CT CHEST WITHOUT CONTRAST CLINICAL INFORMATION: Postpneumonic left effusion, resulting in empyema. COMPARISON: No recent prior CT exam. CT PA chest 04/14/2019. Numerous chest radiographs, the most recent dated 12/28/2024. TECHNIQUE: Multidetector volumetric CT imaging of the chest was done. Axial MIP volume rendering provided. Sagittal and coronal reformatted images were obtained. This CT examination was performed using dose optimization techniques as appropriate, variously including the following: *Automated exposure control *Adjustment of mA and/or kV according to patient size (this includes techniques or standardized protocols for targeted exams where dose is matched to indication/reason for exam; i.e. extremities or head) *Use of iterative reconstruction technique FINDINGS: LUNGS: Small to moderate-sized layering left effusion with possible loculation inferolaterally. There is a moderate amount of abutting left lower lobe consolidation in the medial basal aspect. There is volume loss of the left lower lobe with displacement of the major fissure posteriorly. The left upper lobe as well pneumatized. The right lung is well pneumatized. There is no right effusion. There is mild thickening of the left lower lobe segmental bronchi. There is no bronchiectasis. No suspicious nodules or masses. No pneumothorax. MEDIASTINUM: Small appearing thyroid. Aorta is mildly calcified and the ascending aorta is minimally aneurysmal at 4.4 cm diameter. This previously measured 4.2 cm. Main pulmonary artery is prominent, measuring 4.0 cm in diameter. This could indicate pulmonary arterial hypertension. Heart size is mildly enlarged. Pacer leads are present in the right ventricle and right atrium. There are mild coronary calcifications. There is no pericardial effusion. There is no mediastinal lymphadenopathy or mass. The esophagus is unremarkable. The central airways are patent. CORONARY ARTERY CALCIFICATION: Mild. AXILLA/CHEST WALL: No lymphadenopathy or mass. Left chest wall generator pack for pacemaker. UPPER ABDOMEN: Imaged upper abdominal contents demonstrate a exophytic right renal cyst measuring 4.7 cm. There is mild fatty atrophy of the pancreas. Remainder of the imaged upper abdominal contents appear normal. OSSEOUS STRUCTURES: There is no suspicious lytic or blastic bone lesion. There are mild to moderate degenerative changes of the spine, with some features which may be related to underlying DISH. There are significant degenerative changes in both shoulder joints. CT/CT chest wo IV con IMPRESSION: 1. There is a small to moderate-sized left layering pleural effusion, which may be mildly loculated. Underlying parenchymal consolidation of the medial basilar left lower lobe, with significant left lower lobe volume loss. This could be chronic atelectasis although persistent pneumonia is not excluded. There is mild thickening of the left lower lobe segmental bronchi. 2. Mild aneurysmal dilatation of the ascending aorta at 4.4 cm, previously measuring 4.2 cm and 2019. 3. Prominent main pulmonary artery suggesting pulmonary arterial hypertension. 4. Mild cardiac enlargement with mild coronary calcifications. Atrioventricular pacer in place. Electronically signed by: Marcelo Cedillo MD 02/17/2025 04:52 PM EDT
== END 2025-02-17 16:07 | disposition home or self-care (01) ==
LOC: HO.CT 16:06
PROVIDERS: Visit Provider Internal Medicine
DX: J90 Pleural effusion, not elsewhere classified (principal); J98.4 Other disorders of lung
CPT/HCPCS: 71250

== ENCOUNTER → 2025-02-17 16:11 | Outpatient (BNV) | payer BC, SELFPAY | PROVIDERS: Visit Provider Radiology Diagnostic Radiology | DX: J90 Pleural effusion, not elsewhere classified (principal) | CPT/HCPCS: 71250 ==

== ENCOUNTER 2025-03-10 14:12 | Outpatient (AMB) | payer BC, SELFPAY ==
--- NOTE | 2025-03-10 14:17 | MHC.OFFVIS ---
Vital Signs 03/10/25 14:21 Height 6 ft 3 in Weight 364 lb 13.84 oz BMI 45.6 BP 142/82 H Blood Pressure Location Lt brachial Position Sitting Pulse 74 Pulse Source Pulse Oximeter Pulse Oximetry (%) 96 Oxygen Delivery Method Room Air Intake Visit Reasons: COPD Intake Note: pt is here for follow up and he states he is starting to feel better but he cannot prove it is, pt needs pre-op clearance for colonoscopy on Friday at [facility] [place]. Kennel Technician Required: No Allergies pravastatin (PRAVASTATIN) Allergy (Intermediate, Verified 03/10/25 15:04) RASH clonidine Allergy (Unknown, Verified 03/10/25 15:04) facial rash lisinopril Allergy (Unknown, Verified 03/10/25 15:04) achy, back pain, achy codeine Allergy (Verified 03/10/25 15:04) rash labetalol Adverse Reaction (Unknown, Verified 03/10/25 15:04) achy Seasonal Allergy (Unknown, Uncoded 03/10/25 15:04) unknown Medication List - Last Reconciled 03/10/25 by Rafia Thomson MD ammonium lactate 12% 1 appl topical DAILY bisacodyl (Dulcolax (bisacodyl)) 10 mg (2 x 5 mg) PO BEDTIME 2 days ketoconazole 2% 1 appl topical DAILY peg 3350-electrolytes 236-22.74-6.74 -5.86 gram (Golytely) 240 mL PO Q10M 1 day polyethylene glycol 3350 (Miralax) 17 grams PO DAILY 30 days psyllium husk (Fiber (psyllium husk)) 1.04 grams (2 x 0.52 gram) PO DAILY Do you need a note to return to daycare/school/sports/work: No HPI HPI COPD: Details: THIS 64 YEARS OLD GENTLEMAN, TALL AND GROSSLY OBESE. HAD PNEUMONIA LIKE PICTURE IN SEPTEMBER OF THIS YEAR, FOLLOWED BY RESIDUAL DENSITY IN THE LEFT LOWER CHEST. IT DID NOT RESOLVE HE HAD THORACENTESES, LEFT CHEST ON DECEMBER 09 , ABOUT 500 ML OF FLUID DRAINED. THE FLUID ANALYSIS WAS CONSISTENT WITH PARAPNEUMONIC EFFUSION. SUBSEQUENT FOLLOW-UP WITH CHEST X-RAY HAVE SHOWN THAT HE HAS RESIDUAL EFFUSION WHICH HAS NOT RESOLVED. FINALLY THE CT SCAN OF THE CHEST ON 02/17/2025 , SHOWS A LOCULATED MODERATE SIZE EFFUSION IN THE LEFT LOWER CHEST. PATIENT HAS BEEN FOLLOWED UP AND HE CONTINUES TO HAVE MILD DISCOMFORT IN THE LEFT LOWER CHEST. TODAY HE TELLS ME THAT IT IS GETTING BETTER SLOWLY. HE HAS HAD NO FEVER CHILLS . OR SWEATING AT NIGHT HE IS SHORT OF BREATH ON WALKING AROUND SAME HE WAS EVEN BEFORE HE HAD THE PLEURAL EFFUSION. HE HAS BEEN TREATED FOR RESTRICTIVE LUNG DISEASE AND MILD COPD FOR SOME TIME . H HE ALSO HAS HISTORY OF OBSTRUCTIVE SLEEP APNEA BUT WAS NOT ABLE TO USE THE CPAP. HE HAS ALSO NOT BEEN ABLE TO LOSE WEIGHT. HE CLAIMS THAT HE SLEEPS ON HIS SIDE AND CAN SLEEP GOOD EXCEPT FOR WAKING UP ABOUT TWICE DURING THE NIGHT TO GO TO THE BATHROOM. [facility] Medical History Food poisoning Screening for colon cancer Encounter for screening colonoscopy Elevated fasting blood sugar HTN (hypertension) Pleural effusion Restrictive lung disease Carotid stenosis Salmonella COPD (chronic obstructive pulmonary disease) RACHELE (obstructive sleep apnea) Obesity (BMI 35.0-39.9 without comorbidity) Constipation Spinal stenosis, lumbar SSS (sick sinus syndrome) Atrial flutter DVT (deep venous thrombosis) Aortic root dilatation Sleep apnea Dorsalgia PVD (peripheral vascular disease) HTN (hypertension) Surgical History Hx of colonoscopy Hx of cardiac pacemaker History of inguinal hernia repair History of hip replacement Family History Father Heart problem Pacemaker Colon cancer Mother No problems noted. Maternal Grandmother Cancer Maternal Grandfather Arthritis Brother No problems noted. Daughter No problems noted. Daughter No problems noted. Social History Household Members: Spouse Household Members Other:: cats Housing: House Are you a primary specialist wound care to a significant other at home: No Do you presently have visiting nurse or other home services: No Alcohol intake: former Patient Tobacco Use Status: Former Tobacco user Tobacco use type: Cigar e-Cigarette/Vaping Use: Never Used Second Hand Smoke Exposure: Yes service: No Current occupational status: unemployed and disabled Cognitive needs: No Hearing needs: No Vision needs: No Review of Systems Const All systems reviewed & are unremarkable except as noted in HPI and below Eyes Reports no additional complaints ENT Reports no additional complaints Card Denies chest pain, Denies irregular heart rhythm and Denies leg edema Resp Reports as per HPI GI Reports no additional complaints Reports no additional complaints Musc Reports back pain (mild) Skin/Breast Reports system reviewed and no additional complaints, except as documented Neuro Reports no additional complaints Psych Reports no additional complaints Physical Exam Vital Signs: Last Vital Signs Pulse 74 03/10/25 14:21 BP 142/82 H 03/10/25 14:21 Pulse Ox 96 03/10/25 14:21 Oxygen Delivery Method Room Air 03/10/25 14:21 BMI result Body Mass Index 45.6 He is grossly obese with a round face and very fat neck. Const General: comfortable, no acute distress, alert and awake Orientation/consciousness: patient oriented x3 HEENT Head: Yes normal to inspection General nose exam: No nasal polyps present and No nasal discharge present Face and sinus: Yes sinuses nontender Mouth: oropharynx abnormals (Oropharynx is crowded with Mallampati class 3) Throat: Yes posterior oropharynx normal Eyes General: appearance normal, both eyes and all related structures Neck Neck: Yes normal visual inspection, Yes no lymphadenopathy, Yes trachea midline and Yes no JVD Thyroid: Thyroid normal Chest Other: THERE IS DULLNESS TO PERCUSSION OVER THE LOWER HALF OF THE LEFT CHEST. Chest palpation & inspection: normal inspection of the chest, normal palpation of entire chest wall and no tenderness Resp Other: Percussion note is resonant but it is difficult to do percussion over the basilar areas. HOWEVER THERE IS DULLNESS OVER THE LEFT BASE. The breath sounds are generally diminished over both basilar areas. I do not hear any crepitations or rhonchi . Cardio Palpation: normal PMI Rate: regular rate Rhythm: regular rhythm Heart sounds: no gallops and no murmurs Peripheral pulses: Peripheral pulses 2+ throughout GI Palpation (GI): Soft to palpation, nontender, No hepatosplenomegaly present, no masses and Other GI palpation findings present (Abdomen is obese and protuberant) Auscultation: normal bowel sounds Back/Spine/Pelvis Thoracic/Lumbar Spine: thoracic and lumbar spine normal to inspection and thoraco-lumbar ROM limited Skin Other: HE HAS SCABBED LESIONS OVER LEFT LOWER THORACIC AREA. General skin exam: no rashes or lesions noted and dry skin (over the legs) Neuro General: patient oriented x3 and no focal motor deficits Cranial nerves: Yes CN's II-XII intact bilaterally Extrem General: Yes normal to inspection, Yes no clubbing, cyanosis or edema, Yes no calf tenderness and Yes venous stasis dermatitis Psych Appearance: grossly normal and well kempt Speech and movement: Normal speech and movement present Office Procedures Spirometry Testing Spirometry Comments: In office spirometry completed with results given to Dr Thomson. [id number]- Spirometry Results Reviewed Results Reviewed: SPIROMETRY ; FVC= 50% FEV1= 44 % FEF 25-75 = 34 % C/W RESTRICTIVE WELL OBSTRUCTIVE LUNG DISEASE . Assessment & Plan Assessment & Plan (1) Morbid obesity: Comment: THIS GENTLEMAN CONTINUES TO BE MORBIDLY OBESE, HE IS NOT IN ANY WEIGHT MANAGEMENT PROGRAM EVEN THOUGH HE WAS REFERRED BY HIS PRIMARY CARE PHYSICIAN. Code(s): E66.01 - Morbid (severe) obesity due to excess calories Category: Medical Plan: I TALKED TO HIM AND ADVISED THAT HE SHOULD JOIN A WEIGHT MANAGEMENT PROGRAM. (2) RACHELE (obstructive sleep apnea): Comment: HISTORY IS POSITIVE FOR OBSTRUCTIVE SLEEP APNEA BUT HE COULD NOT TOLERATE THE CPAP. ONCE AGAIN HE EXPLAINS THAT HE SLEEPS OKAY, HE IS NOT BOTHERED BY SLEEP APNEA. AND HE IS NOT GOING TO TRY USING CPAP. Code(s): G47.33 - Obstructive sleep apnea (adult) (pediatric) Category: Medical Plan: THE ONLY WAY HE WILL IMPROVE IS BY SIGNIFICANT WEIGHT REDUCTION. AND HE IS ADVISED TO SLEEP IN LATERAL POSITION. (3) SOB (shortness of breath): Comment: DYSPNEA ON EXERTION, MOST LIKELY SECONDARY TO RESTRICTIVE PULMONARY DISORDER, RESULT OF MORBID OBESITY. PER SPIROMETRY HE DOES HAVE SIGNIFICANT OBSTRUCTIVE COMPONENT. Code(s): R06.02 - Shortness of breath Category: Medical Plan: ADVISE THAT HE HAS TO BE SERIOUSLY ENGAGED IN WEIGHT REDUCTION PROGRAM. HE SHOULD TRY TO DO DEEP BREATHING EXERCISES 3 TIMES A DAY HE HAS BEEN PRESCRIBED ADVAIR IN THE PAST BUT HE DID NOT LIKE TO USE IT. HE SAY IS THAT HE DOES NOT LIKE DRY POWDER. I WILL PRESCRIBE ADVAIR HFA, AND HE AGREES TO TRY USING IT. (4) Restrictive lung disease: Comment: BECAUSE OF HIS SUPER MORBID OBESITY HE HAS RESTRICTIVE LUNG DISEASE. DOES HAVE MILD SHORTNESS OF BREATH ON WALKING UP HILL OR FAST . HE SAY IS IT IS NOT ANY WORSE AFTER HE HAD PLEURAL EFFUSION ON THE LEFT SIDE SPIROMETRY : Code(s): J98.4 - Other disorders of lung Category: Medical (5) Pleural effusion: Comment: PERSISTENT PLEURAL EFFUSION LEFT CHEST, POST INFECTION /PARAPNEUMONIC EFFUSION , STATUS POST THORACENTESES. NEGATIVE FOR MALIGNANCY, FLUID CHARACTERISTICS AREC/W INFLAMMATORY EFFUSION. RECENT CHEST CT SHOWS THAT HE HAS MODERATE-SIZED LOCULATED EFFUSION LEFT LOWER CHEST. Code(s): J90 - Pleural effusion, not elsewhere classified Category: Medical Plan: I DISCUSSED WITH THE PATIENT AND ADVISED HIM THAT THE BEST SOLUTION IS REFERRAL TO A THORACIC SURGEON, AND HE WILL MOST LIKELY NEED A VIDEO ASSISTED THORACOSCOPY, DECORTICATION AND CHEST TUBE PLACEMENT. HE TELLS ME THAT HE DOES NOT WANT TO CONSIDER ANY SURGICAL PROCEDURE AT THIS TIME. HE JUST WANTS TO WAIT AND WATCH . Plan * HE IS SCHEDULED TO UNDERGO COLONOSCOPY. HE DOES HAVE SIGNIFICANT OBSTRUCTIVE AND RESTRICTIVE LUNG DISEASE BUT CLINICALLY HE IS STABLE. HE HAS NO RESPIRATORY DISTRESS. SO HE CAN UNDERGO COLONOSCOPY WITHOUT ANY RESPIRATORY PROBLEMS. MAY NEED O2 SUPPLEMENTATION AND ALSO ALBUTEROL UPDRAFT IF HE DEVELOPS ANY WHEEZING OR RESPIRATORY DISTRESS. Orders: Orders Pulmonary Test/Procedure Today J44.9 - Chronic obstructive pulmonary disease, unspecified, J98.4 - Other disorders of lung, R06.02 - Shortness of breath AMB Spirometry Testing Today J44.9 - Chronic obstructive pulmonary disease, unspecified, J98.4 - Other disorders of lung Medications: New fluticasone propion-salmeterol 230-21 mcg/actuation (Advair HFA) 2 puffs inhalation Q12H 12 grams 3RF COPD 30 days Coding Level of Care Code Est Pt Level 4 (08387) Diagnoses Morbid obesity E66.01 RACHELE (obstructive sleep apnea) G47.33 SOB (shortness of breath) R06.02 Restrictive lung disease J98.4 Pleural effusion J90 CPT Codes Spirometry - CPT: 66557- Spirometry ([id number])
[2025-03-10 14:21] VITALS: BP 142/82; PULSE 74; O2SAT 96; BMI 45.6
== END 2025-03-10 15:32 | disposition home or self-care (01) ==
LOC: HO.HPS 14:13
PROVIDERS: PCP Nurse Practitioner Family; Visit Provider Internal Medicine
DX: E66.01 Morbid (severe) obesity due to excess calories (principal); G47.33 Obstructive sleep apnea (adult) (pediatric); R06.02 Shortness of breath; J98.4 Other disorders of lung; J90 Pleural effusion, not elsewhere classified
CPT/HCPCS: 94010; 99214

== ENCOUNTER → 2025-03-10 14:12 | Outpatient (BNVA) | payer BC, SELFPAY | PROVIDERS: PCP Nurse Practitioner Family; Visit Provider Internal Medicine | DX: Z01.811 Encounter for preprocedural respiratory examination (principal); J98.4 Other disorders of lung; J90 Pleural effusion, not elsewhere classified; R06.02 Shortness of breath; G47.33 Obstructive sleep apnea (adult) (pediatric); E66.01 Morbid (severe) obesity due to excess calories; Z68.42 Body mass index [BMI] 45.0-49.9, adult | CPT/HCPCS: 94010 ==

== ENCOUNTER 2025-03-22 13:23 | Outpatient (REF) | payer BC, SELFPAY ==
--- NOTE | ~2025-03-22 | US_ITS ---
EXAMINATION: Noninvasive assessment of the bilateral lower extremities with ARTERIAL DUPLEX, ANKLE BRACHIAL INDICES (ABIs), and PULSE VOLUME RECORDINGS (PVRs). CLINICAL INFORMATION: I. 73.9. Peripheral vascular disease.. TECHNIQUE: Duplex Doppler techniques with waveform analysis and measurement of velocities in the bilateral common femoral, profunda femoris, superficial femoral, popliteal and tibial arteries were performed. Additionally, ankle pulse volume recordings, ankle pressure measurements and ankle brachial indices were obtained of the lower extremity arterial system bilaterally. The study was performed only at rest. COMPARISON: August 24, 2024 FINDINGS: DIRECT DUPLEX DOPPLER FINDINGS: RIGHT LEG: Common femoral artery: 119 cm/s, phasicity: Triphasic. Profunda femoris artery: 73 cm/s, phasicity: Triphasic. Superficial femoral artery (proximal): 95 cm/s, phasicity: Triphasic. Superficial femoral artery (mid): 91 cm/s, phasicity: Triphasic. Superficial femoral artery (distal): 106 cm/s, phasicity: Triphasic. Popliteal artery: 84 cm/s, phasicity: Triphasic. Posterior tibial artery: 118 cm/s, phasicity: Triphasic. Peroneal artery: 48 cm/s, phasicity: Triphasic. Anterior tibial artery: 73 cm/s, phasicity: Triphasic. Dorsalis pedis artery: 48 cm/s, phasicity:Biphasic. LEFT LEG: Common femoral artery: 126 cm/s, phasicity: Triphasic. Profunda femoris artery: 97 cm/s, phasicity: Triphasic. Spectral broadening. Superficial femoral artery (proximal): 114 cm/s, phasicity: Triphasic. Superficial femoral artery (mid): 97 cm/s, phasicity: Triphasic. Superficial femoral artery (distal): 106 cm/s, phasicity: Triphasic. Popliteal artery: 69 cm/s, phasicity: Triphasic. Posterior tibial artery: 69 cm/s, phasicity: Triphasic. Spectral broadening. Peroneal artery: No color Doppler flow. Anterior tibial artery: 47 cm/s, phasicity: Triphasic. Dorsalis pedis artery: 48 cm/s, phasicity: Biphasic. BRACHIAL PRESSURES: Right: 141 Left: 142 ANKLE PRESSURES: Right: PT 177, DP 143 Left: PT 200, DP 126 ANKLE-BRACHIAL INDEX: Right: 1.25 Left: 1.41 ANKLE PVR WAVEFORMS: Right: Normal Left: Abnormal US/US arterial duplex BI w/ ES IMPRESSION: Right leg: Mild to moderate inflow disease, dorsalis pedis artery. Left leg: Mild to moderate inflow disease, dorsalis base artery. Peroneal artery is not identified. ES Reference: - >1.4 = calcified vessels - 0.9 - 1.4 = normal - no significant arterial disease - 0.7 - 0.89 = mild peripheral arterial disease - 0.51 - 0.69 = moderate peripheral arterial disease - 0.50 = severe peripheral arterial disease - < .30 = critical arterial disease Electronically signed by: Juma Luna MD 03/22/2025 03:04 PM EDT RP
== END 2025-03-22 13:24 | disposition home or self-care (01) ==
LOC: HO.US 13:23
PROVIDERS: Visit Provider Surgery Vascular Surgery
DX: I73.9 Peripheral vascular disease, unspecified (principal)
CPT/HCPCS: 93922; 93925

== ENCOUNTER → 2025-03-22 13:25 | Outpatient (BNV) | payer BC, SELFPAY | PROVIDERS: Visit Provider Radiology Diagnostic Radiology | DX: I73.9 Peripheral vascular disease, unspecified (principal) | CPT/HCPCS: 93922; 93925 ==

== ENCOUNTER 2025-03-28 13:48 | Outpatient (AMB) | payer BC, SELFPAY ==
--- NOTE | 2025-03-28 13:54 | MHC.OFFVIS ---
Vital Signs 03/28/25 13:55 Height 6 ft 3 in Weight 367 lb 1.114 oz BMI 45.9 BP 130/92 H Blood Pressure Location Lt brachial Position Sitting Pulse 90 Pulse Source Pulse Oximeter Pulse Oximetry (%) 96 Oxygen Delivery Method Room Air Intake Visit Reasons: Shortness of breath Intake Note: pt is here for follow up and states coughing is the same, having pain in the back in the left wing blade, and he feels like there is a lump in the area, and shortness of breath is on/off some days okay and some days difficult walking down hallway at home. Allergies pravastatin (PRAVASTATIN) Allergy (Intermediate, Verified 03/10/25 15:04) RASH clonidine Allergy (Unknown, Verified 03/10/25 15:04) facial rash lisinopril Allergy (Unknown, Verified 03/10/25 15:04) achy, back pain, achy codeine Allergy (Verified 03/10/25 15:04) rash labetalol Adverse Reaction (Unknown, Verified 03/10/25 15:04) achy Seasonal Allergy (Unknown, Uncoded 03/10/25 15:04) unknown Medication List - Last Reconciled 03/28/25 by Rafia Thomson MD ammonium lactate 12% 1 appl topical DAILY bisacodyl (Dulcolax (bisacodyl)) 10 mg (2 x 5 mg) PO BEDTIME 2 days budesonide-formoterol 160-4.5 mcg/actuation 2 puffs inhalation BID 30 days fluticasone propion-salmeterol 230-21 mcg/actuation (Advair HFA) 2 puffs inhalation Q12H 30 days ketoconazole 2% 1 appl topical DAILY peg 3350-electrolytes 236-22.74-6.74 -5.86 gram (Golytely) 240 mL PO Q10M 1 day polyethylene glycol 3350 (Miralax) 17 grams PO DAILY 30 days psyllium husk (Fiber (psyllium husk)) 1.04 grams (2 x 0.52 gram) PO DAILY Do you need a note to return to daycare/school/sports/work: No HPI HPI Shortness of breath: Details: THIS 64 YEARS OLD GENTLEMAN IS HERE TODAY FOR. A SHORT TERM FOLLOW-UP HE SAY IS HIS BREATHING IS THE SAME BEFORE HE DOES NOT REALLY GET SHORT OF BREATH AT REST OR, . WITH ROUTINE WALKING HE SHOULD GETS SHORT OF BREATH ONLY WHEN HE CLIMBS STAIRS OR IF HE HAS TO WALK MORE. THAN A COUPLE OF BLOCKS. DENIES ANY WHEEZING, HE DOES USE ADVAIR HFA 2 PUFFS B.I.D. AND DOES NOT NEED TO USE ANY EMERGENCY INHALER. HIS MAIN COMPLAINT TODAY IS SOME DISCOMFORT IN THE LEFT MID CHEST, IT FEELS LIKE HE HAS A LUMP OVER THERE. SHOULD BE NOTED THAT IT IS JUST ABOVE THE AREA WHERE HE HAD HERPES ZOSTER RECENTLY. [facility] Medical History (Updated 03/28/25 @ 15:15 by Rafia Thomson MD) Post herpetic neuralgia Food poisoning Screening for colon cancer Encounter for screening colonoscopy Elevated fasting blood sugar HTN (hypertension) Pleural effusion Restrictive lung disease Carotid stenosis Salmonella COPD (chronic obstructive pulmonary disease) RACHELE (obstructive sleep apnea) Obesity (BMI 35.0-39.9 without comorbidity) Constipation Spinal stenosis, lumbar SSS (sick sinus syndrome) Atrial flutter DVT (deep venous thrombosis) Aortic root dilatation Sleep apnea Dorsalgia PVD (peripheral vascular disease) HTN (hypertension) Surgical History Hx of colonoscopy Hx of cardiac pacemaker History of inguinal hernia repair History of hip replacement Family History Father Heart problem Pacemaker Colon cancer Mother No problems noted. Maternal Grandmother Cancer Maternal Grandfather Arthritis Brother No problems noted. Daughter No problems noted. Daughter No problems noted. Social History Household Members: Spouse Household Members Other:: cats Housing: House Are you a primary hospice home care coordinator to a significant other at home: No Do you presently have visiting nurse or other home services: No Alcohol intake: former Patient Tobacco Use Status: Former Tobacco user Tobacco use type: Cigar e-Cigarette/Vaping Use: Never Used Second Hand Smoke Exposure: Yes service: No Current occupational status: unemployed and disabled Cognitive needs: No Hearing needs: No Vision needs: No Review of Systems Const All systems reviewed & are unremarkable except as noted in HPI and below Eyes Reports no additional complaints ENT Reports no additional complaints Card Denies chest pain, Denies irregular heart rhythm and Denies leg edema Resp Reports as per HPI GI Reports no additional complaints Reports no additional complaints Musc Reports back pain (mild) Skin/Breast Reports system reviewed and no additional complaints, except as documented Neuro Reports no additional complaints Psych Reports no additional complaints Physical Exam Vital Signs: Last Vital Signs Pulse 90 03/28/25 13:55 BP 130/92 H 03/28/25 13:55 Pulse Ox 96 03/28/25 13:55 Oxygen Delivery Method Room Air 03/28/25 13:55 BMI result Body Mass Index 45.9 He is grossly obese with a round face and very fat neck. Const General: comfortable, no acute distress, alert and awake Orientation/consciousness: patient oriented x3 HEENT Head: Yes normal to inspection General nose exam: No nasal polyps present and No nasal discharge present Face and sinus: Yes sinuses nontender Mouth: oropharynx abnormals (Oropharynx is crowded with Mallampati class 3) Throat: Yes posterior oropharynx normal Eyes General: appearance normal, both eyes and all related structures Neck Neck: Yes normal visual inspection, Yes no lymphadenopathy, Yes trachea midline and Yes no JVD Thyroid: Thyroid normal Chest Other: THERE IS DULLNESS TO PERCUSSION OVER THE LOWER HALF OF THE LEFT CHEST. Chest palpation & inspection: normal inspection of the chest, normal palpation of entire chest wall and no tenderness Resp Other: Percussion note is resonant but it is difficult to do percussion over the basilar areas. HOWEVER THERE IS DULLNESS OVER THE LEFT BASE. The breath sounds are generally diminished over both basilar areas. I do not hear any crepitations or rhonchi . Cardio Palpation: normal PMI Rate: regular rate Rhythm: regular rhythm Heart sounds: no gallops and no murmurs Peripheral pulses: Peripheral pulses 2+ throughout GI Palpation (GI): Soft to palpation, nontender, No hepatosplenomegaly present, no masses and Other GI palpation findings present (Abdomen is obese and protuberant) Auscultation: normal bowel sounds Back/Spine/Pelvis Thoracic/Lumbar Spine: thoracic and lumbar spine normal to inspection and thoraco-lumbar ROM limited Skin Other: HE HAS SCABBED LESIONS OVER LEFT LOWER THORACIC AREA. General skin exam: rashes and/or lesions noted (HE DOES HAVE RESIDUAL POST HERPEZ DISCOLORATION OVER LEFT CHEST WALL ) and dry skin (over the legs) Neuro General: patient oriented x3 and no focal motor deficits Cranial nerves: Yes CN's II-XII intact bilaterally Extrem General: Yes normal to inspection, Yes no clubbing, cyanosis or edema, Yes no calf tenderness and Yes venous stasis dermatitis Psych Appearance: grossly normal and well kempt Speech and movement: Normal speech and movement present Assessment & Plan Assessment & Plan (1) Morbid obesity: Comment: THIS GENTLEMAN CONTINUES TO BE MORBIDLY OBESE, HE IS NOT IN ANY WEIGHT MANAGEMENT PROGRAM EVEN THOUGH HE WAS REFERRED BY HIS PRIMARY CARE PHYSICIAN. Code(s): E66.01 - Morbid (severe) obesity due to excess calories Category: Medical Plan: NOTHING NEW (2) COPD (chronic obstructive pulmonary disease): Comment: [id number] PER previous PFT. SPIROMETRY SHOWED THAT THERE IS SOME WORSENING OF THE FLOW VOLUMES. HE TRIED TO USE FLUTICASONE-SALMETEROL 250-50 1 INHALATION B.I.D, BUT AFTER SEEING NO POSITIVE EFFECT HE STOPPED USING IT. HE ALSO DID NOT LIKE TO USE THE POWDER FORM. NOW HE IS USING ADVAIR HFA TWO THIRTY-TWENTY ONE TWO B.I.D., AND TOLERATES IT WELL. DENIES ANY WHEEZING ,COUGH IS ALSO LESS. , Code(s): J44.9 - Chronic obstructive pulmonary disease, unspecified Category: Medical Plan: ADVISED TO CONTINUE USING THE HFA 2 PUFFS B.I.D.. (3) RACHELE (obstructive sleep apnea): Comment: HISTORY IS POSITIVE FOR OBSTRUCTIVE SLEEP APNEA BUT HE COULD NOT TOLERATE THE CPAP. ONCE AGAIN HE EXPLAINS THAT HE SLEEPS OKAY, HE IS NOT BOTHERED BY SLEEP APNEA. AND HE IS NOT GOING TO TRY USING CPAP. Code(s): G47.33 - Obstructive sleep apnea (adult) (pediatric) Category: Medical Plan: NOTHING NEW (4) Restrictive lung disease: Comment: BECAUSE OF HIS SUPER MORBID OBESITY HE HAS RESTRICTIVE LUNG DISEASE. DOES HAVE MILD SHORTNESS OF BREATH ON WALKING UP HILL OR FAST . HE SAYS, IT IS NOT ANY WORSE AFTER HE HAD PLEURAL EFFUSION ON THE LEFT SIDE Code(s): J98.4 - Other disorders of lung Category: Medical Plan: ENCOURAGED TO DO DEEP BREATHING EXERCISES AT LEAST 3 TIMES A DAY (5) Post herpetic neuralgia: Comment: HE HAS DISCOMFORT IN THE LEFT LOWER THORACIC AREA, JUST ABOVE THE AREA WHERE HE HAD HERPES ZOSTER. I THINK THIS DISCOMFORT IS MORE DUE TO POST HERPETIC NEURALGIA. Code(s): B02.29 - Other postherpetic nervous system involvement Category: Medical Plan: I EXPLAINED TO HIM AND HE FEELS SATISFIED, AND NOT WORRIED ABOUT HIS RESIDUAL PLEURAL EFFUSION CAUSING THIS CHEST DISCOMFORT. (6) Pleural effusion: Comment: PERSISTENT PLEURAL EFFUSION LEFT CHEST, POST INFECTION /PARAPNEUMONIC EFFUSION , STATUS POST THORACENTESES. NEGATIVE FOR MALIGNANCY, FLUID CHARACTERISTICS AREC/W INFLAMMATORY EFFUSION. RECENT CHEST CT SHOWS THAT HE HAS MODERATE-SIZED LOCULATED EFFUSION LEFT LOWER CHEST. Code(s): J90 - Pleural effusion, not elsewhere classified Category: Medical Plan: I HAVE DISCUSS THE OPTIONS OF TREATMENT WITH THIS GENTLEMAN. THERE IS NOTHING LESS THAN TRYING TO DO ANOTHER THORACENTESIS OR THE BEST APPROACH WOULD BE VATS ASSISTED THORACOSTOMY, WHICH HE DOES NOT WANT AT ALL Coding Level of Care Code Est Pt Level 3 (51043) Diagnoses Morbid obesity E66.01 COPD (chronic obstructive pulmonary disease) J44.9 RACHELE (obstructive sleep apnea) G47.33 Restrictive lung disease J98.4 Post herpetic neuralgia B02.29 Pleural effusion J90
[2025-03-28 13:55] VITALS: BP 130/92; PULSE 90; O2SAT 96; BMI 45.9
== END 2025-03-28 16:27 | disposition home or self-care (01) ==
LOC: HO.HPS 13:49
PROVIDERS: PCP Nurse Practitioner Family; Visit Provider Internal Medicine
DX: E66.01 Morbid (severe) obesity due to excess calories (principal); J44.9 Chronic obstructive pulmonary disease, unspecified; G47.33 Obstructive sleep apnea (adult) (pediatric); J98.4 Other disorders of lung; B02.29 Other postherpetic nervous system involvement; J90 Pleural effusion, not elsewhere classified
CPT/HCPCS: 99213

== ENCOUNTER 2025-05-03 12:42 | Outpatient (AMB) | payer BC, SELFPAY ==
--- NOTE | 2025-05-03 12:57 | MHC.OFFVIS ---
Vital Signs 05/03/25 12:59 Height 6 ft 3 in Weight 367 lb BMI 45.9 Intake Visit Reasons: Follow Up US Intake Note: 6 mo follow up Arterial US 03/22/25 Loader Operator/Ground Leader Required: No Accompanied by: Self / Same As Patient Allergies pravastatin (PRAVASTATIN) Allergy (Intermediate, Verified 05/03/25 13:05) RASH clonidine Allergy (Unknown, Verified 05/03/25 13:05) facial rash lisinopril Allergy (Unknown, Verified 05/03/25 13:05) achy, back pain, achy codeine Allergy (Verified 05/03/25 13:05) rash labetalol Adverse Reaction (Unknown, Verified 05/03/25 13:05) achy Seasonal Allergy (Unknown, Uncoded 05/03/25 13:05) unknown HPI HPI Follow Up US: Details: The patient is a 64 year old male presenting for an arterial follow-up. This is a 6-month follow-up visit. His vascular evaluations began after cramping of the legs.. The patient's walking is limited by shortness of breath and pain where his hips meet the spine, rather than leg pain. He has a history of an old hip replacement, nerve conduction studies, and known nerve damage. The patient denies a history of diabetes. He now presents for follow-up with noninvasive arterial testing [facility] Medical History Post herpetic neuralgia Food poisoning Screening for colon cancer Encounter for screening colonoscopy Elevated fasting blood sugar HTN (hypertension) Pleural effusion Restrictive lung disease Carotid stenosis Salmonella COPD (chronic obstructive pulmonary disease) RACHELE (obstructive sleep apnea) Obesity (BMI 35.0-39.9 without comorbidity) Constipation Spinal stenosis, lumbar SSS (sick sinus syndrome) Atrial flutter DVT (deep venous thrombosis) Aortic root dilatation Sleep apnea Dorsalgia PVD (peripheral vascular disease) HTN (hypertension) Surgical History Hx of colonoscopy Hx of cardiac pacemaker History of inguinal hernia repair History of hip replacement Family History Father Heart problem Pacemaker Colon cancer Mother No problems noted. Maternal Grandmother Cancer Maternal Grandfather Arthritis Brother No problems noted. Daughter No problems noted. Daughter No problems noted. Social History Household Members: Spouse Household Members Other:: cats Housing: House Are you a primary wild animal caretaker to a significant other at home: No Do you presently have visiting nurse or other home services: No Alcohol intake: former Patient Tobacco Use Status: Former Tobacco user Tobacco use type: Cigar e-Cigarette/Vaping Use: Never Used Second Hand Smoke Exposure: Yes service: No Current occupational status: unemployed and disabled Cognitive needs: No Hearing needs: No Vision needs: No Review of Systems Const All systems reviewed & are unremarkable except as noted in HPI and below Reports no additional complaints ENT Reports Normal hearing present Card Denies chest pain, Denies chest pain at rest, Denies chest pain with activity and Denies pedal edema Resp Denies cough GI Denies abdominal pain Musc Denies abnormal gait, Denies muscle cramps and Denies radiating pain into limb Skin/Breast Denies skin ulcer and Denies wounds Neuro Reports Normal hearing present and Denies abnormal gait Psych Reports no additional complaints Physical Exam Vital Signs: BMI result Body Mass Index 45.9 Const General: cooperative, healthy appearing and comfortable Orientation/consciousness: oriented to person, oriented to place and oriented to time HEENT Head: Yes normal to inspection Neck Neck: Yes normal visual inspection Carotids: no bruits Chest Chest palpation & inspection: normal inspection of the chest Resp Effort & Inspection: normal respiratory effort and able to speak in complete sentences Auscultation: clear to auscultation bilaterally, no crackles, no rales, no rhonchi and no wheezes Cardio Rate: regular rate Rhythm: regular rhythm Heart sounds: S1 normal heart sound present and S2 normal heart sound present Bruits: no carotid bruits Peripheral pulses: Peripheral pulses 2+ throughout GI Inspection: Yes normal to inspection Skin Wounds: no wounds Hair: normal Neuro General: oriented to person, oriented to place and oriented to time Cranial nerves: Yes CN's II-XII intact bilaterally and Yes Normal hearing present Cognition (Neuro): normal cognition Motor exam (neuro): 5/5 motor strength present throughout Extrem Other: venous exam: No significant superficial varicosities or spider telangiectasias, minimal edema General: No clubbing, No cyanosis and No edema Psych Appearance: grossly normal Mental Status: mental status grossly normal Speech and movement: Normal speech and movement present Results Reviewed Results Reviewed: Arterial testing dated 03/22/2025 demonstrates ES on the right of 1.25 and on the left of 1.41 with triphasic waveforms down bilateral lower extremities. Assessment & Plan Assessment & Plan (1) PAD (peripheral artery disease): Code(s): I73.9 - Peripheral vascular disease, unspecified Category: Medical Plan: I reviewed the patient's recent arterial ultrasound, which indicates that his blood flow is good. Based on these stable findings, I recommended a follow-up ultrasound in one year. We discussed the management of his leg swelling and associated dry skin. I advised him on the importance of moisturizing his legs to prevent skin breakdown and the formation of venous ulcers, and also recommended leg elevation and walking to help with the swelling. Plan Patient was informed and verbally consented to the use of an ambient scribe for clinic note documentation during this visit. Orders: Orders US arterial duplex LE 1 Year I73.9 - Peripheral vascular disease, unspecified Coding Level of Care Code Est Pt Level 4 (72488) Diagnoses PAD (peripheral artery disease) I73.9
[2025-05-03 12:59] VITALS: BMI 45.9
== END 2025-05-03 13:37 | disposition home or self-care (01) ==
LOC: HO.HVS 12:43
PROVIDERS: PCP Nurse Practitioner Family; Visit Provider Surgery Vascular Surgery
DX: I73.9 Peripheral vascular disease, unspecified (principal)
CPT/HCPCS: 99214

== ENCOUNTER 2025-05-10 13:56 | Outpatient (AMB) | payer BC, SELFPAY ==
[2025-05-10 14:20] VITALS: BP 120/80; PULSE 75; O2SAT 96; BMI 45.6
--- NOTE | 2025-05-10 14:20 | MHC.OFFVIS ---
Vital Signs 05/10/25 14:20 Height 6 ft 3 in Weight 364 lb 13.84 oz BMI 45.6 BP 120/80 Blood Pressure Location Lt brachial Position Sitting Pulse 75 Pulse Source Pulse Oximeter Pulse Oximetry (%) 96 Oxygen Delivery Method Room Air Intake Visit Reasons: COPD Intake Note: pt is here for follow up and states he is feeling better, using the inhaler, must have mist. Edger Machine Operator Required: No Pulling Machine Operator: Pulling Machine Operator offered & declined Allergies pravastatin (PRAVASTATIN) Allergy (Intermediate, Verified 05/10/25 15:20) RASH clonidine Allergy (Unknown, Verified 05/10/25 15:20) facial rash lisinopril Allergy (Unknown, Verified 05/10/25 15:20) achy, back pain, achy codeine Allergy (Verified 05/10/25 15:20) rash labetalol Adverse Reaction (Unknown, Verified 05/10/25 15:20) achy Seasonal Allergy (Unknown, Uncoded 05/10/25 15:20) unknown Medication List - Last Reconciled 05/10/25 by Rafia Thomson MD ammonium lactate 12% 1 appl topical DAILY bisacodyl (Dulcolax (bisacodyl)) 10 mg (2 x 5 mg) PO BEDTIME 2 days budesonide-formoterol 160-4.5 mcg/actuation 2 puffs inhalation BID 30 days ketoconazole 2% 1 appl topical DAILY peg 3350-electrolytes 236-22.74-6.74 -5.86 gram (Golytely) 240 mL PO Q10M 1 day polyethylene glycol 3350 (Miralax) 17 grams PO DAILY 30 days psyllium husk (Fiber (psyllium husk)) 1.04 grams (2 x 0.52 gram) PO DAILY Do you need a note to return to daycare/school/sports/work: No HPI HPI COPD: Details: 64 years old gentleman is here for follow-up. He claims that his breathing is same as usual and he gets short of breath only if he has to climb stairs in a hurry. At his normal pace he can walk around without much shortness of breath. His breathing is improved with the use of budesonide-formoterol 160-4.5 2 puffs b.i.d. He denies any pain or discomfort in the left chest at this time. He remains morbidly obese . Once again we discussed about his weight/ obstructive sleep apnea / and residual fluid in the left lower chest . He claims that he is okay and he does not need anymore intervention. He could not tolerate the CPAP and is not willing to think about this anymore. [facility] Medical History Post herpetic neuralgia Food poisoning Screening for colon cancer Encounter for screening colonoscopy Elevated fasting blood sugar HTN (hypertension) Pleural effusion Restrictive lung disease Carotid stenosis Salmonella COPD (chronic obstructive pulmonary disease) RACHELE (obstructive sleep apnea) Obesity (BMI 35.0-39.9 without comorbidity) Constipation Spinal stenosis, lumbar SSS (sick sinus syndrome) Atrial flutter DVT (deep venous thrombosis) Aortic root dilatation Sleep apnea Dorsalgia PVD (peripheral vascular disease) HTN (hypertension) Surgical History Hx of colonoscopy Hx of cardiac pacemaker History of inguinal hernia repair History of hip replacement Family History Father Heart problem Pacemaker Colon cancer Mother No problems noted. Maternal Grandmother Cancer Maternal Grandfather Arthritis Brother No problems noted. Daughter No problems noted. Daughter No problems noted. Social History Household Members: Spouse Household Members Other:: cats Housing: House Are you a primary health care legal assistant to a significant other at home: No Do you presently have visiting nurse or other home services: No Alcohol intake: former Patient Tobacco Use Status: Former Tobacco user Tobacco use type: Cigar e-Cigarette/Vaping Use: Never Used Second Hand Smoke Exposure: Yes service: No Current occupational status: unemployed and disabled Cognitive needs: No Hearing needs: No Vision needs: No Review of Systems Const All systems reviewed & are unremarkable except as noted in HPI and below Eyes Reports no additional complaints ENT Reports no additional complaints Card Denies chest pain, Denies irregular heart rhythm and Denies leg edema Resp Reports as per HPI GI Reports no additional complaints Reports no additional complaints Musc Reports back pain (mild) Skin/Breast Reports system reviewed and no additional complaints, except as documented Neuro Reports no additional complaints Psych Reports no additional complaints Physical Exam Vital Signs: Last Vital Signs Pulse 75 05/10/25 14:20 BP 120/80 05/10/25 14:20 Pulse Ox 96 05/10/25 14:20 Oxygen Delivery Method Room Air 05/10/25 14:20 BMI result Body Mass Index 45.6 He is grossly obese with a round face and very fat neck. Const General: comfortable, no acute distress, alert and awake Orientation/consciousness: patient oriented x3 HEENT Head: Yes normal to inspection General nose exam: No nasal polyps present and No nasal discharge present Face and sinus: Yes sinuses nontender Mouth: oropharynx abnormals (Oropharynx is crowded with Mallampati class 3) Throat: Yes posterior oropharynx normal Eyes General: appearance normal, both eyes and all related structures Neck Neck: Yes normal visual inspection, Yes no lymphadenopathy, Yes trachea midline and Yes no JVD Thyroid: Thyroid normal Chest Other: THERE IS DULLNESS TO PERCUSSION OVER THE LOWER HALF OF THE LEFT CHEST. Chest palpation & inspection: normal inspection of the chest, normal palpation of entire chest wall and no tenderness Resp Other: Percussion note is resonant but it is difficult to do percussion over the basilar areas. HOWEVER THERE IS DULLNESS OVER THE LEFT BASE. The breath sounds are generally diminished over both basilar areas. I do not hear any crepitations or rhonchi . Cardio Palpation: normal PMI Rate: regular rate Rhythm: regular rhythm Heart sounds: no gallops and no murmurs Peripheral pulses: Peripheral pulses 2+ throughout GI Palpation (GI): Soft to palpation, nontender, No hepatosplenomegaly present, no masses and Other GI palpation findings present (Abdomen is obese and protuberant) Auscultation: normal bowel sounds Back/Spine/Pelvis Thoracic/Lumbar Spine: thoracic and lumbar spine normal to inspection and thoraco-lumbar ROM limited Skin Other: HE HAS SCABBED LESIONS OVER LEFT LOWER THORACIC AREA. General skin exam: rashes and/or lesions noted (HE DOES HAVE RESIDUAL POST HERPEZ DISCOLORATION OVER LEFT CHEST WALL ) and dry skin (over the legs) Neuro General: patient oriented x3 and no focal motor deficits Cranial nerves: Yes CN's II-XII intact bilaterally Extrem General: Yes normal to inspection, Yes no clubbing, cyanosis or edema, Yes no calf tenderness and Yes venous stasis dermatitis Psych Appearance: grossly normal and well kempt Speech and movement: Normal speech and movement present Assessment & Plan Assessment & Plan (1) Morbid obesity: Comment: THIS GENTLEMAN CONTINUES TO BE MORBIDLY OBESE, HE IS NOT IN ANY WEIGHT MANAGEMENT PROGRAM EVEN THOUGH HE WAS REFERRED BY HIS PRIMARY CARE PHYSICIAN. Code(s): E66.01 - Morbid (severe) obesity due to excess calories Category: Medical Plan: I talked about .need to lose weight He say is that he is happy with his current weight, he is happy with his sleep that he gets. And he is not going to consider using CPAP. He also does not want any intervention to make him lose weight. I did urge him to cut down the portions of his meals, increase the amount of water to drink and also increase salads and vegetables in his diet. (2) RACHELE (obstructive sleep apnea): Comment: HISTORY IS POSITIVE FOR OBSTRUCTIVE SLEEP APNEA BUT HE COULD NOT TOLERATE THE CPAP. ONCE AGAIN HE EXPLAINS THAT HE SLEEPS OKAY, HE IS NOT BOTHERED BY SLEEP APNEA. AND HE IS NOT GOING TO TRY USING CPAP. Code(s): G47.33 - Obstructive sleep apnea (adult) (pediatric) Category: Medical Plan: Because he is not willing to use the CPAP, and is not going to lose much weight, there is no sense to pursue about the sleep apnea . (3) COPD (chronic obstructive pulmonary disease): Comment: [id number] PER previous PFT. SPIROMETRY SHOWED THAT THERE IS SOME WORSENING OF THE FLOW VOLUMES. HE TRIED TO USE FLUTICASONE-SALMETEROL 250-50 1 INHALATION B.I.D, BUT AFTER SEEING NO POSITIVE EFFECT HE STOPPED USING IT. HE ALSO DID NOT LIKE TO USE THE POWDER FORM. NOW HE IS USING BUDESONIDE-FORMOTEROL 160-4.52 PUFFS B.I.D. AND CLAIMS THAT HIS BREATHING IS BETTER THAN BEFORE. Code(s): J44.9 - Chronic obstructive pulmonary disease, unspecified Category: Medical Plan: CONTINUE BUDESONIDE-FORMOTEROL 2 PUFFS B.I.D.. USE VENTOLIN 2 PUFFS Q 6 HOURS ONLY P.R.N.. (4) Restrictive lung disease: Comment: BECAUSE OF HIS SUPER MORBID OBESITY HE HAS RESTRICTIVE LUNG DISEASE. DOES HAVE MILD SHORTNESS OF BREATH ON WALKING UP HILL OR FAST . HE SAYS, IT IS NOT ANY WORSE AFTER HE HAD PLEURAL EFFUSION ON THE LEFT SIDE Code(s): J98.4 - Other disorders of lung Category: Medical Plan: DISCUSS ABOUT LOSING WEIGHT IF HE CAN AND ALSO ENCOURAGED TO KEEP ON DOING DEEP BREATHING EXERCISES 2 OR 3 TIMES A DAY. (5) Pleural effusion: Comment: PERSISTENT PLEURAL EFFUSION LEFT CHEST. PER CT SCAN IT IS LOCULATED. AND CLINICALLY I THINK IT IS ALREADY ORGANIZED. IT WILL BE DIFFICULT TO DRAIN, UNLESS HE HAS THORACOSTOM Y AND DECORTICATION. BUT HE IS NOT FOR THAT AT ALL. Code(s): J90 - Pleural effusion, not elsewhere classified Category: Medical Plan: WILL CONTINUE TO MONITOR HIM ANY CHEST DISCOMFORT OR INCREASED SHORTNESS OF BREATH. Coding Level of Care Code Est Pt Level 3 (02406) Diagnoses Morbid obesity E66.01 RACHELE (obstructive sleep apnea) G47.33 COPD (chronic obstructive pulmonary disease) J44.9 Restrictive lung disease J98.4 Pleural effusion J90
== END 2025-05-10 15:18 | disposition home or self-care (01) ==
LOC: HO.HPS 13:57
PROVIDERS: PCP Nurse Practitioner Family; Visit Provider Internal Medicine
DX: E66.01 Morbid (severe) obesity due to excess calories (principal); G47.33 Obstructive sleep apnea (adult) (pediatric); J44.9 Chronic obstructive pulmonary disease, unspecified; J98.4 Other disorders of lung; J90 Pleural effusion, not elsewhere classified
CPT/HCPCS: 99213

== ENCOUNTER 2025-05-13 11:26 | Day surgery (SDC) | payer BC, SELFPAY ==
--- NOTE | 2025-05-10 09:22 | HO.ANESPROP2 ---
Documented by User: Sandy Walton NP 05/11/25 09:13 HPI - Anesthesia Eval Consult details Narrative: 64yo M for Colonoscopy BMI 45.9 Pulmo optimized. [place] [facility] [place] obstructive and restrictive lung disease, chronic L pleural effusion - attempted thoracenteisis 11/2024 resulting in shingles to L chest. Pt declines further surgical intervention. Follows [facility] Cardiology for SSS (pacer functioning well), aflutter (<1%, no anticoag per pt), PVD/AAA (4.4cm, Echos followed by cards). Stable at 11/2024 office visit for 6 month f/u PMFSH Active Problems Active Problems: All Active Problems Post herpetic neuralgia (Acute) Elevated C-reactive protein (CRP) (Acute) Elevated erythrocyte sedimentation rate (Acute) Arthralgia (Acute) Pre-op examination (Acute) Pleural effusion (Acute) Leukocytosis (Acute) Tinea (Acute) PAD (peripheral artery disease) (Acute) Physical exam (Acute) Restrictive lung disease (Acute) Overactive bladder (Acute) Chronic pain syndrome (Acute) Sacroiliitis (Acute) Chronic lower back pain (Acute) B12 deficiency (Acute) Bladder outlet obstruction (Acute) Nocturia more than twice per night (Acute) Elevated liver enzymes (Acute) Avascular necrosis of bone of right hip (Acute) Sacroiliac joint pain (Acute) Multilevel degenerative disc disease (Acute) DISH (diffuse idiopathic skeletal hyperostosis) (Acute) Nerve root compression (Acute) Elevated fasting blood sugar (Acute) Spinal stenosis, lumbar (Acute) Anemia (Acute) Morbid obesity (Acute) Diarrhea (Acute) Screening PSA (prostate specific antigen) (Acute) Microscopic hematuria (Acute) COPD (chronic obstructive pulmonary disease) (Acute) RACHELE (obstructive sleep apnea) (Acute) Obesity (BMI 35.0-39.9 without comorbidity) (Acute) Dry skin (Acute) Constipation (Acute) SOB (shortness of breath) (Acute) Left leg DVT (Acute) Artificial pacemaker (Acute) HTN (hypertension) (Acute) Past Medical History Medical History Post herpetic neuralgia Food poisoning Screening for colon cancer Encounter for screening colonoscopy Elevated fasting blood sugar HTN (hypertension) Pleural effusion Restrictive lung disease Carotid stenosis Salmonella COPD (chronic obstructive pulmonary disease) RAHCELE (obstructive sleep apnea) Obesity (BMI 35.0-39.9 without comorbidity) Constipation Spinal stenosis, lumbar SSS (sick sinus syndrome) Atrial flutter DVT (deep venous thrombosis) Aortic root dilatation Dorsalgia PVD (peripheral vascular disease) Family History Family History Father Heart problem Pacemaker Colon cancer Mother No problems noted. Maternal Grandmother Cancer Maternal Grandfather Arthritis Brother No problems noted. Daughter No problems noted. Daughter No problems noted. Surgical History Surgical History Hx of colonoscopy Hx of cardiac pacemaker History of inguinal hernia repair History of hip replacement Social History Social History Household Members: Spouse Household Members Other:: cats Housing: House Are you a primary health care sanitary technician to a significant other at home: No Do you presently have visiting nurse or other home services: No Alcohol intake: former Patient Tobacco Use Status: Former Tobacco user Tobacco use type: Cigar e-Cigarette/Vaping Use: Never Used Second Hand Smoke Exposure: Yes Have you been hit, kicked, punched, or otherwise hurt by someone within the past year? If so, by whom?: No Are you DNR?: No Advance Directives: No Advance Directives Information Provided: Yes service: No Current occupational status: unemployed and disabled Cognitive needs: No Hearing needs: No Vision needs: No Meds Allergies Allergy/AdvReac Type Severity Reaction Status Date / Time pravastatin (PRAVASTATIN) Allergy Intermediate RASH Verified 05/13/25 11:48 clonidine Allergy Unknown facial rash Verified 05/13/25 11:48 lisinopril Allergy Unknown achy, back Verified 05/13/25 11:48 pain, achy codeine Allergy rash Verified 05/13/25 11:48 labetalol AdvReac Unknown achy Verified 05/13/25 11:48 Seasonal Allergy Unknown unknown Uncoded 05/13/25 11:48 Exam Pertinent Lab Results Pertinent Lab Results: Laboratory Tests 11/29/24 11/29/24 07:58 07:59 WBC 6.4 Hgb 14.4 Hct 43.2 Plt Count 167 D Sodium 138 Potassium 4.5 Chloride 103 Carbon Dioxide 29 BUN 18 H Creatinine 0.90 Narrative Narrative: Pacer Interrogation 02/2025 AP 41% RANCH HAND LIVESTOCK 10% Chest CT 01/2025 CT chest wo IV con IMPRESSION: 1. There is a small to moderate-sized left layering pleural effusion, which may be mildly loculated. Underlying parenchymal consolidation of the medial basilar left lower lobe, with significant left lower lobe volume loss. This could be chronic atelectasis although persistent pneumonia is not excluded. There is mild thickening of the left lower lobe segmental bronchi. 2. Mild aneurysmal dilatation of the ascending aorta at 4.4 cm, previously measuring 4.2 cm and 2019. 3. Prominent main pulmonary artery suggesting pulmonary arterial hypertension. 4. Mild cardiac enlargement with mild coronary calcifications. Atrioventricular pacer in place. EKG 11/2024 Vent. Rate : 74 BPM Atrial Rate : 74 BPM P-R Int : 220 ms QRS Dur : 134 ms QT Int : 402 ms P-R-T Axes : -10 -86 -8 degrees QTcB Int : 446 ms Sinus rhythm with 1st degree A-V block Left axis deviation Right bundle branch block Inferior infarct , age undetermined Abnormal ECG When compared with ECG of 26-Jan-2021 21:16, Atrial pacing not seen ECHO 10/2024 Assessment and Plan Assessment Anesthesia Assessment: Chart Reviewed Documented by User: Kala Penny MD 05/13/25 12:23 [facility] Past Medical History Medical History Post herpetic neuralgia Food poisoning Screening for colon cancer Encounter for screening colonoscopy Elevated fasting blood sugar HTN (hypertension) Pleural effusion Restrictive lung disease Carotid stenosis Salmonella COPD (chronic obstructive pulmonary disease) RACHELE (obstructive sleep apnea) Obesity (BMI 35.0-39.9 without comorbidity) Constipation Spinal stenosis, lumbar SSS (sick sinus syndrome) Atrial flutter DVT (deep venous thrombosis) Aortic root dilatation Dorsalgia PVD (peripheral vascular disease) Family History Family History Father Heart problem Pacemaker Colon cancer Mother No problems noted. Maternal Grandmother Cancer Maternal Grandfather Arthritis Brother No problems noted. Daughter No problems noted. Daughter No problems noted. Family history of problems with anesthesia: No Surgical History Surgical History Hx of colonoscopy Hx of cardiac pacemaker History of inguinal hernia repair History of hip replacement History of Problems with Anesthesia: No Social History Social History Household Members: Spouse Household Members Other:: cats Housing: House Are you a primary health care sanitary technician to a significant other at home: No Do you presently have visiting nurse or other home services: No Alcohol intake: former Patient Tobacco Use Status: Former Tobacco user Tobacco use type: Cigar e-Cigarette/Vaping Use: Never Used Second Hand Smoke Exposure: Yes Have you been hit, kicked, punched, or otherwise hurt by someone within the past year? If so, by whom?: No Are you DNR?: No Advance Directives: No Advance Directives Information Provided: Yes service: No Current occupational status: unemployed and disabled Cognitive needs: No Hearing needs: No Vision needs: No Meds Allergies Allergy/AdvReac Type Severity Reaction Status Date / Time pravastatin (PRAVASTATIN) Allergy Intermediate RASH Verified 05/13/25 11:48 clonidine Allergy Unknown facial rash Verified 05/13/25 11:48 lisinopril Allergy Unknown achy, back Verified 05/13/25 11:48 pain, achy codeine Allergy rash Verified 05/13/25 11:48 labetalol AdvReac Unknown achy Verified 05/13/25 11:48 Seasonal Allergy Unknown unknown Uncoded 05/13/25 11:48 Exam Airway Mallampati Class: III TM Dist: >3cm Neck ROM: Full Heart: rrr Lungs: diminished at base Assessment and Plan Assessment Anesthesia Assessment: Anesthesia Plan Discussed Final Anesthetic Review Family History of Problems with Anesthesia: No History of Problems with Anesthesia: No NPO: Yes ASA Class: III Final Preanesthetic Review: No Changes in Pt Med Stat, Meds/Allgs Chart Reviewed and Consent Obtained/Reviewed Patient Risk: Intermediate Procedure Risk: Low Anesthetic Plan Anesthetic Plan: MAC: Disposition: Standard PACU
[2025-05-11 08:40] VITALS: BMI 45.0
[2025-05-13 11:45] VITALS: BMI 45.8
[2025-05-13 11:55] VITALS: BP 185/80; PULSE 77; RESP 18; TEMP 36.7; O2SAT 96
[2025-05-13] MEDS: Lactated Ringers 1,000 ML 100 ML IVCONT (11:58)
[2025-05-13 12:08] VITALS: BP 146/72
--- NOTE | 2025-05-13 12:10 | MHC.SHP ---
Pre-Procedural Eval Section A - 24 Hr Update-Section A only Date of Service: 05/13/25 Section B - Complete if H&P > 30 days Chief Complaint: Family history of malignant neoplasm of digestive Details of Present Illness: PMH: HTN (hypertension) Pleural effusion Restrictive lung disease Carotid stenosis COPD (chronic obstructive pulmonary disease) RACHELE (obstructive sleep apnea) Obesity (BMI 35.0-39.9 without comorbidity) Spinal stenosis, lumbar SSS (sick sinus syndrome) Atrial flutter PVD (peripheral vascular disease) Surgical History Hx of colonoscopy Hx of cardiac pacemaker History of inguinal hernia repair History of hip replacement Allergies: Allergies Allergy/AdvReac Type Severity Reaction Status Date / Time pravastatin (PRAVASTATIN) Allergy Intermediate RASH Verified 05/13/25 11:48 clonidine Allergy Unknown facial rash Verified 05/13/25 11:48 lisinopril Allergy Unknown achy, back Verified 05/13/25 11:48 pain, achy codeine Allergy rash Verified 05/13/25 11:48 labetalol AdvReac Unknown achy Verified 05/13/25 11:48 Seasonal Allergy Unknown unknown Uncoded 05/13/25 11:48 Review of Systems Review of Systems Comment: 10 point ROS negative Exam Exam Comment: Gen appear: No acute distress, with obesity HEENT: no icterus Chest: No overt resp distress Abd: soft, nontender, nondistended Psych: Stable affect, answering questions appropriately Neuro: A/Ox3 noted to move all extremities spontaneously Ext: no peripheral edema Plan Diagnosis/Plan: Unchanged I have reviewed the history and physical and performed a pertinent physical examination on my patient. No changes have occurred unless specified. Time Spent With Patient Time: Total time managing care of this patient today ____ minutes.
--- NOTE | 2025-05-13 12:25 | PC.NURSE ---
Dr. Penny aware of all written on preop record. assessed patient and stated okay to proceed.
[2025-05-13 14:16] VITALS: BP 106/62; PULSE 75; RESP 16; TEMP 36.8; O2SAT 95
--- NOTE | 2025-05-13 14:17 | P.OPN-COLO_ITS ---
Colonoscopy Operative Note Operative Note Date of Service: 05/13/25 Narrative: Procedure: Colonoscopy Indication: Family history of colon cancer Endoscopist: Buffy Talbert MD Anesthesia Provider: Dr Kala Silva Anesthesia type: MAC Instrument: Olympus [id number]-H190L Consent: Indication, risks vs benefits, and alternatives were discussed with the patient who gave written informed consent to proceed. EKG, pulse, pulse oximetry and blood pressure were monitored throughout the procedure. Please see anesthesia flowsheet. Procedure: The patient was brought to the procedure room and placed in the left lateral decubitus position. An abdominal binder was placed on the lower abdomen. IV medications were administered by the anesthesia provider in attendance. A digital rectal exam was performed which was normal. A distal attachment cap was affixed to the tip of the colonoscope which was then inserted through the anus and advanced through the colon to the cecum at 75 cm,and terminal ileum. Appendiceal orifice and ileocecal valve were identified. Mucosa was carefully examined under high definition white light as the instrument was slowly withdrawn in a retrograde panoramic fashion. Retroflexion was performed in rectum. The procedure was not difficult. There were no immediate obvious complications. The quality of the prep was BBPS: 2+2+3 = adequate Withdrawal time 14 minutes. Limitations: No limitations. Findings: Mucosa: Normal to cecum and terminal ileum. Protruding lesions: * 3 sessile polyp of size 2-4 mm in ascending and a 6 mm polyp in transverse colon. Cold snare polypectomy was performed. The polyps completely removed and retrieved.These were sent together as right colon polyps. * 1 sessile polyp of size 2 mm in sigmoid colon. Cold snare polypectomy was performed. The polyp was completely removed and retrieved. * Medium internal hemorrhoids without stigmata of recent bleeding. Excavated lesions: * Moderate diverticulosis of left sided colon. Impression: 1. Normal colon and terminal mucosa 2. Total of 4 polyps removed 3. Diverticulosis 4. Internal hemorrhoids Recommendations: - Follow path results. - Repeat colonoscopy in 3 years if all polyps are adenomas otherwise 5 years due to family history.
[2025-05-13 14:33] VITALS: BP 126/61; PULSE 65; RESP 19; TEMP 36.7; O2SAT 96
== END 2025-05-13 14:58 | disposition home or self-care (01) ==
PROVIDERS: Visit Provider Internal Medicine
PROC: 0DJD8ZZ Inspection of Lower Intestinal Tract, Via Natural or Artificial Opening Endoscopic (ICD-10-PCS; CPT 45378; principal; 2025-05-13 12:30)
DX: Z12.11 Encounter for screening for malignant neoplasm of colon (principal); Z80.0 Family history of malignant neoplasm of digestive organs; K59.00 Constipation, unspecified; D12.2 Benign neoplasm of ascending colon; D12.5 Benign neoplasm of sigmoid colon; D12.3 Benign neoplasm of transverse colon
CPT/HCPCS: 45385; 88305; J2003; J2250; J2704

== ENCOUNTER → 2025-05-13 11:26 | Outpatient (BNV) | payer BC, SELFPAY | PROVIDERS: Visit Provider Internal Medicine | DX: Z12.11 Encounter for screening for malignant neoplasm of colon (principal); K63.5 Polyp of colon; K57.90 Diverticulosis of intestine, part unspecified, without perforation or abscess without bleeding; K64.8 Other hemorrhoids | CPT/HCPCS: 45385 ==